=== PATIENT | male | born 1975 | race Caucasian/White ===

== ENCOUNTER 2016-06-06 23:01 | Observation (INO) | payer OTHER ==
[2016-06-06] MEDS ORDERED: ASPIRIN 81 MG CHEW PO STA (23:21)
[2016-06-06] MEDS ORDERED: ONDANSETRON 4 MG/2 ML VIAL IVP STA (23:21)
[2016-06-06] MEDS ORDERED: NITROGLYCERIN SL TABS 0.4 MG TAB SUBLINGUAL STA ×3 (23:21)
--- NOTE | 2016-06-06 23:24 | ED ---
General Adult HPI - General Chief complaint: Chest Pain Stated complaint: Chest Pain Time Seen by Provider: 06/06/16 23:18 Source: patient, family, RN notes reviewed Mode of arrival: ambulatory Limitations: no limitations - History of Present Illness Initial comments: Patient is a pleasant 40-year-old male presenting to emergency Department complaining of chest discomfort. Onset was close to 3 hours ago. Discomfort is somewhat severe. Discomfort feels like tightness with radiation across the chest. No associated dyspnea or diaphoresis. Patient does feel nauseated. Discomfort has been intermittent over the past week. Patient does have a history of similar symptoms previously associated with heart attack. - Related Data Home Medications Medication Instructions Recorded Confirmed Lisinopril [Zestril] 10 mg PO DAILY 12/23/14 02/18/16 Atorvastatin [Lipitor] 40 mg PO DAILY 02/18/16 02/18/16 Clopidogrel [Plavix] 75 mg PO DAILY 02/18/16 02/18/16 metFORMIN HCL [Glucophage] 500 mg PO DAILY 02/18/16 02/18/16 Previous Rx's Medication Instructions Recorded Aspirin EC [Ecotrin Low Dose] 81 mg PO DAILY #90 tablet.dr 12/25/14 Metoprolol Tartrate [Lopressor] 25 mg PO BID #120 tab 12/25/14 Isosorbide Mononitrate ER [Imdur] 30 mg PO DAILY #30 tab.er.24h 03/20/15 Cyclobenzaprine [Flexeril] 10 mg PO TID #21 tab 02/19/16 Allergies Allergy/AdvReac Type Severity Reaction Status Date / Time No Known Allergies Allergy Verified 06/06/16 23:08 Review of Systems ROS Statement: Those systems with pertinent positive or pertinent negative responses have been documented in the HPI. ROS Other: All systems not noted in ROS Statement are negative. Constitutional: Denies: fever Eyes: Denies: eye pain ENT: Denies: ear pain Respiratory: Denies: cough, dyspnea Cardiovascular: Reports: chest pain Endocrine: Denies: fatigue Gastrointestinal: Reports: nausea. Denies: abdominal pain, vomiting Genitourinary: Denies: dysuria Skin: Denies: rash Neurological: Denies: weakness Past Medical History Past Medical History: Coronary Artery Disease (CAD), Chest Pain / Angina, Diabetes Mellitus, Hyperlipidemia, Hypertension, Myocardial Infarction ([place]) Additional Past Medical History / Comment(s): Pt was recently admitted to [facility] on 12/24/14 with a STEMI and had 2 stents placed to his ramus intermedius and mid LAD. Other HX: Pt states he is "prediabetic" and is on metformin for this reason. Last Myocardial Infarction Date:: 12/24/14 History of Any Multi-Drug Resistant Organisms: None Reported Past Surgical History: Heart Catheterization, Heart Catheterization With Stent Additional Past Surgical History / Comment(s): 12/24/14 PCI with stent in ramus intermedius and mid LAD. THEN 01-01-15 CAME IN WITH VAGUE CHEST PAIN SYMPTOMS HAD REPEAT CATH BUT PT STATED NO MORE STENTS STATED HE HAD SPASMS. Past Anesthesia/Blood Transfusion Reactions: No Reported Reaction Additional Past Anesthesia/Blood Transfusion Reaction / Comment(s): Pt has never had general anesthesia or blood transfusion. Date of Last Stent Placement:: 12/24/14 Past Psychological History: No Psychological Hx Reported Additional Psychological History / Comment(s): Pt resides with his spouse and 4 children. 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 Smoking Status: Never smoker Past Alcohol Use History: None Reported Past Drug Use History: None Reported - Past Family History Father Family Medical History: No Reported History Additional Family Medical History / Comment(s): Father is 66yrs old and healthy Mother Family Medical History: No Reported History Additional Family Medical History / Comment(s): Mother is 57yrs old and healthy. General Exam Limitations: no limitations General appearance: alert, in no apparent distress Head exam: Present: atraumatic Eye exam: Present: normal appearance, PERRL ENT exam: Present: normal oropharynx Neck exam: Present: normal inspection Respiratory exam: Present: normal lung sounds bilaterally. Absent: chest wall tenderness Cardiovascular Exam: Present: regular rate, normal rhythm Expanded Peripheral pulses: 2+: Radial (R), Radial (L), Dorsalis Pedis (R), Dorsalis Pedis (L) GI/Abdominal exam: Present: soft. Absent: tenderness Extremities exam: Present: normal inspection. Absent: pedal edema, calf tenderness Neurological exam: Present: alert Psychiatric exam: Present: normal affect, normal mood Skin exam: Absent: rash Course Vital Signs 06/06/16 06/06/16 23:06 23:44 Temperature 98.0 F Pulse Rate 96 82 Respiratory 20 18 Rate Blood Pressure 130/80 121/80 O2 Sat by Pulse 98 97 Oximetry EKG Findings - EKG Comments: EKG Findings:: Normal sinus rhythm at 81. AR 176. QRS 104. QT 386. QTc 448. Normal axis. Normal QRS. Normal ST-T. Medical Decision Making - Medical Decision Making Patient reexamined and still complains of discomfort despite nitroglycerin. Nausea has improved. Patient and family updated on results and plan. Case was discussed in detail with Dr. Ramos, who will admit for Dr. House. Admission orders written. IV heparin started. Consultation for cardiology. - Lab Data Result diagrams: 06/06/16 23:00 06/06/16 23:00 Lab Results 06/06/16 06/06/16 06/06/16 Range/Units 23:00 23:00 23:00 WBC 13.9 H (3.8-10.6) k/uL RBC 5.30 (4.30-5.90) m/uL Hgb 15.5 (13.0-17.5) gm/dL Hct 46.6 (39.0-53.0) % MCV 88.0 (80.0-100.0) fL MCH 29.3 (25.0-35.0) pg MCHC 33.3 (31.0-37.0) g/dL RDW 12.8 (11.5-15.5) % Plt Count 260 (150-450) k/uL Neutrophils % 84 % Lymphocytes % 9 % Monocytes % 5 % Eosinophils % 1 % Basophils % 0 % Neutrophils # 11.7 H (1.3-7.7) k/uL Lymphocytes # 1.3 (1.0-4.8) k/uL Monocytes # 0.7 (0-1.0) k/uL Eosinophils # 0.2 (0-0.7) k/uL Basophils # 0.0 (0-0.2) k/uL PT (9.0-12.0) sec INR (<1.1) APTT (22.0-30.0) sec Sodium 141 (137-145) mmol/L Potassium 4.2 (3.5-5.1) mmol/L Chloride 101 (98-107) mmol/L Carbon Dioxide 27 (22-30) mmol/L Anion Gap 13 mmol/L BUN 23 H (9-20) mg/dL Creatinine 0.90 (0.66-1.25) mg/dL Est GFR (MDRD) Af Amer >60 (>60 ml/min/1.73 sqM) Est GFR (MDRD) Non-Af >60 (>60 ml/min/1.73 sqM) Glucose 117 H (74-99) mg/dL Calcium 9.6 (8.4-10.2) mg/dL Magnesium 1.9 (1.6-2.3) mg/dL Total Bilirubin 0.7 (0.2-1.3) mg/dL AST 37 (17-59) U/L ALT 80 H (21-72) U/L Alkaline Phosphatase 66 (38-126) U/L Total Creatine Kinase 428 H (55-170) U/L CK-MB (CK-2) 2.9 H* (0.0-2.4) ng/mL CK-MB (CK-2) Rel Index 0.7 Troponin I <0.012 (0.000-0.034) ng/mL Total Protein 7.7 (6.3-8.2) g/dL Albumin 4.7 (3.5-5.0) g/dL 06/06/16 Range/Units 23:00 WBC (3.8-10.6) k/uL RBC (4.30-5.90) m/uL Hgb (13.0-17.5) gm/dL Hct (39.0-53.0) % MCV (80.0-100.0) fL MCH (25.0-35.0) pg MCHC (31.0-37.0) g/dL RDW (11.5-15.5) % Plt Count (150-450) k/uL Neutrophils % % Lymphocytes % % Monocytes % % Eosinophils % % Basophils % % Neutrophils # (1.3-7.7) k/uL Lymphocytes # (1.0-4.8) k/uL Monocytes # (0-1.0) k/uL Eosinophils # (0-0.7) k/uL Basophils # (0-0.2) k/uL PT 11.1 (9.0-12.0) sec INR 1.1 (<1.1) APTT 25.8 (22.0-30.0) sec Sodium (137-145) mmol/L Potassium (3.5-5.1) mmol/L Chloride (98-107) mmol/L Carbon Dioxide (22-30) mmol/L Anion Gap mmol/L BUN (9-20) mg/dL Creatinine (0.66-1.25) mg/dL Est GFR (MDRD) Af Amer (>60 ml/min/1.73 sqM) Est GFR (MDRD) Non-Af (>60 ml/min/1.73 sqM) Glucose (74-99) mg/dL Calcium (8.4-10.2) mg/dL Magnesium (1.6-2.3) mg/dL Total Bilirubin (0.2-1.3) mg/dL AST (17-59) U/L ALT (21-72) U/L Alkaline Phosphatase (38-126) U/L Total Creatine Kinase (55-170) U/L CK-MB (CK-2) (0.0-2.4) ng/mL CK-MB (CK-2) Rel Index Troponin I (0.000-0.034) ng/mL Total Protein (6.3-8.2) g/dL Albumin (3.5-5.0) g/dL - Radiology Data Radiology results: image reviewed (X-ray shows no acute process) Critical Care Time Critical Care Time: Yes Total Critical Care Time: 34 Disposition Clinical Impression: Unstable angina pectoris Disposition: ADMITTED IP TO THIS HOSP
[2016-06-06 23:40] LABS: Basophils % (A) 0 %; CH 30.6; CHCM 34.9; Eosinophils # (A) 0.2 k/uL (0-0.7); Eosinophils % (A) 1 %; HCT 46.6 % (39.0-53.0); HDW 2.55; HGB 15.5 gm/dL (13.0-17.5); Luc # (Auto) 0.12; Luc % (Auto) 1; Lymphocytes # (A) 1.3 k/uL (1.0-4.8); Lymphocytes % (A) 9 %; MCH 29.3 pg (25.0-35.0); MCHC 33.3 g/dL (31.0-37.0); Mean Platelet Volume 6.4; Monocytes # (A) 0.7 k/uL (0-1.0); Monocytes % (A) 5 %; Neutrophils # (A) 11.7 k/uL (1.3-7.7); Neutrophils % (A) 84 %; RDW 12.8 % (11.5-15.5); WBC 13.9 k/uL (3.8-10.6); WBC (Perox) 14.58
[2016-06-06 23:49] LABS: INR 1.1 (<1.1); Partial Thromboplastin Time 25.8 sec (22.0-30.0); Prothrombin Time 11.1 sec (9.0-12.0)
[2016-06-06 23:51] LABS: ALT 80 U/L (21-72); AST 37 U/L (17-59); Alkaline Phosphatase 66 U/L (38-126); Anion Gap 13 mmol/L; Blood Urea Nitrogen 23 mg/dL (9-20); Calcium 9.6 mg/dL (8.4-10.2); Carbon Dioxide 27 mmol/L (22-30); Chloride 101 mmol/L (98-107); Glucose 117 mg/dL (74-99); Magnesium 1.9 mg/dL (1.6-2.3); Non-African American GFR(MDRD) >60 (>60 ml/min/1.73 sqM); Potassium 4.2 mmol/L (3.5-5.1); Sodium 141 mmol/L (137-145); Total Bilirubin 0.7 mg/dL (0.2-1.3); Total Protein 7.7 g/dL (6.3-8.2)
[2016-06-07 00:01] LABS: Creatine Kinase 428 U/L (55-170)
[2016-06-07 00:14] LABS: Troponin I <0.012 ng/mL (0.000-0.034)
[2016-06-07 00:17] LABS: Creatine Kinase MB 2.9 ng/mL (0.0-2.4)
[2016-06-07] MEDS ORDERED: MORPHINE SULFATE 4 MG/ML SYRINGE IV STA (00:26)
[2016-06-07] MEDS ORDERED: HEPARIN SODIUM,PORCINE 5,000 UNIT/ML 1 ML VIAL IV ONE (00:32)
[2016-06-07] MEDS ORDERED: NITROGLYCERIN SL TABS 0.4 MG TAB SUBLINGUAL PRN ×3 (00:32→11:34)
[2016-06-07] MEDS ORDERED: HEPARIN SODIUM,PORCINE 5,000 UNIT/ML 1 ML VIAL IV PRN (00:32)
[2016-06-07] MEDS ORDERED: SODIUM CHLORIDE 0.9% 1,000 ML IV STA (00:45)
[2016-06-07] MEDS ORDERED: HEPARIN SODIUM,PORCINE/D5W PMX 25,000 UNIT in DEXTROSE/WATER 1 500ML.BAG IV SCH (00:45)
[2016-06-07] MEDS ORDERED: METOCLOPRAMIDE 5 MG/ML 2 ML VIAL IVP STA (00:54)
--- NOTE | 2016-06-07 01:09 | XR ---
EXAMINATION TYPE: XR chest 1V portable DATE OF EXAM: 06/06/2016 11:59 PM COMPARISON: 02/18/2016 HISTORY: Chest pain. TECHNIQUE: Single frontal view of the chest is obtained. Portable radiograph upright 06/06/2016, 11:49 PM hours FINDINGS: There is suggestion of mild pulmonary vascular congestion. There is no focal air space opacity, pleural effusion, or pneumothorax seen. The cardiac silhouette size is within normal limits. The osseous structures are intact. IMPRESSION: 1. No focal lung consolidation. 2. Mild pulmonary vascular congestion.
[2016-06-07 01:36] VITALS: BMI 30.7
[2016-06-07 05:57] LABS: Mean Platelet Volume 6.8
[2016-06-07] MEDS ORDERED: NITROGLYCERIN OINT 1 INCH/GM PACKET TOPICAL SCH (06:00)
[2016-06-07 06:19] LABS: Creatine Kinase 292 U/L (55-170)
[2016-06-07 06:32] LABS: Creatine Kinase MB 1.8 ng/mL (0.0-2.4); Troponin I <0.012 ng/mL (0.000-0.034)
[2016-06-07] MEDS ORDERED: ALPRAZolam 0.25 MG TAB PO PRN (07:58)
[2016-06-07] MEDS ORDERED: ALPRAZolam 0.5 MG TAB PO PRN (07:58)
[2016-06-07] MEDS ORDERED: SODIUM CHLORIDE 0.9% 1,000 ML in EMPTY BAG 1 BAG IV ONE (07:58)
[2016-06-07] MEDS ORDERED: ATORVASTATIN 80 MG TAB PO STA (08:01)
[2016-06-07] MEDS ORDERED: ASPIRIN 325 MG TAB PO STA (08:01)
[2016-06-07] MEDS: METOPROLOL TARTRATE 25 MG TAB PO SCH ×2 (08:40→22:07)
[2016-06-07] MEDS: LISINOPRIL 10 MG TAB PO SCH (08:41)
[2016-06-07 09:03] LABS: Basophils # (A) 0.1 k/uL (0-0.2); Basophils % (A) 1 %; CH 30.6; CHCM 33.8; Eosinophils # (A) 0.1 k/uL (0-0.7); Eosinophils % (A) 1 %; HCT 46.3 % (39.0-53.0); HGB 15.1 gm/dL (13.0-17.5); Luc # (Auto) 0.13; Luc % (Auto) 1; Lymphocytes # (A) 0.7 k/uL (1.0-4.8); Lymphocytes % (A) 5 %; MCH 29.7 pg (25.0-35.0); MCHC 32.6 g/dL (31.0-37.0); MCV 91.1 fL (80.0-100.0); Mean Platelet Volume 7.7; Monocytes # (A) 0.5 k/uL (0-1.0); Monocytes % (A) 4 %; Neutrophils # (A) 10.9 k/uL (1.3-7.7); Neutrophils % (A) 88 %; RBC 5.09 m/uL (4.30-5.90); RDW 12.8 % (11.5-15.5); WBC 12.3 k/uL (3.8-10.6); WBC (Perox) 12.59
[2016-06-07 09:11] LABS: ALT 73 U/L (21-72); AST 30 U/L (17-59); Alkaline Phosphatase 60 U/L (38-126); Anion Gap 12 mmol/L; Blood Urea Nitrogen 23 mg/dL (9-20); Carbon Dioxide 28 mmol/L (22-30); Chloride 100 mmol/L (98-107); Glucose 141 mg/dL (74-99); Non-African American GFR(MDRD) >60 (>60 ml/min/1.73 sqM); Potassium 4.6 mmol/L (3.5-5.1); Sodium 140 mmol/L (137-145); Total Protein 6.9 g/dL (6.3-8.2)
[2016-06-07] MEDS: CLOPIDOGREL 75 MG TAB PO SCH (09:20)
[2016-06-07] MEDS ORDERED: SODIUM CHLORIDE 0.9% (PF) 10 ML VIAL ONE (09:51)
[2016-06-07] MEDS ORDERED: LIDOCAINE 2% INJ 20 MG/ML (20 ML MDV) ONE (09:51)
[2016-06-07] MEDS ORDERED: fentaNYL (PF) 50 MCG/ML 2 ML AMP ONE (09:51)
[2016-06-07] MEDS ORDERED: VERAPAMIL 2.5 MG/ML 2 ML AMP ONE (09:51)
[2016-06-07] MEDS ORDERED: diphenhydrAMINE 50 MG/ML 1 ML VIAL ONE (09:52)
[2016-06-07] MEDS ORDERED: HEPARIN SODIUM 1,000 UNIT/ML VIAL ONE (09:52)
[2016-06-07] MEDS ORDERED: SODIUM CHLORIDE 0.9% 500 ML IV ONE (10:11)
[2016-06-07] MEDS ORDERED: diphenhydrAMINE 50 MG/ML 1 ML VIAL IVP ONE (10:35)
[2016-06-07] MEDS ORDERED: fentaNYL (PF) 50 MCG/ML 2 ML AMP IV ONE (10:36)
[2016-06-07] MEDS ORDERED: LIDOCAINE 2% INJ 20 MG/ML SQ ONE (10:40)
--- NOTE | 2016-06-07 10:40 | P.HPIM ---
History of Present Illness H&P Date: 06/07/16 Chief Complaint: Chest pain This is a 40-year-old male with a known past medical history of myocardial infarction, coronary artery disease with cardiac stents, diabetes mellitus type 2, hyperlipidemia and hypertension. Patient presented to the emergency room with complaints of chest pain. Patient reports that he has had intermittent chest pain for the past week. However yesterday evening the chest pain became worse. He's having a lot of chest pressure in the center of his chest pain did radiate down the left arm. He also felt sick to his stomach and was short of breath. He took 3 nitros with no improvement. Patient's was omitted to the observation started on IV heparin and cardiology was consulted. Troponins are negative 2 sets EKG shows a normal sinus rhythm. Chest x-ray showed mild peripheral vascular congestion. BNP has been ordered. Patient is scheduled for heart catheterization today. Last stress test was February 2016. Patient denies any cough, fever or chills or sweats. Denies any vomiting. Denies any bowel movement changes or urinary symptoms. Review of Systems Please refer to HPI otherwise unremarkable Past Medical History Past Medical History: Coronary Artery Disease (CAD), Chest Pain / Angina, Diabetes Mellitus, Hyperlipidemia, Hypertension, Myocardial Infarction ([place]) Additional Past Medical History / Comment(s): Pt was recently admitted to [facility] on 12/24/14 with a STEMI and had 2 stents placed to his ramus intermedius and mid LAD. Other HX: Pt states he is "prediabetic" and is on metformin for this reason. Last Myocardial Infarction Date:: 12/24/14 History of Any Multi-Drug Resistant Organisms: None Reported Past Surgical History: Heart Catheterization, Heart Catheterization With Stent Additional Past Surgical History / Comment(s): 12/24/14 PCI with stent in ramus intermedius and mid LAD. THEN 01-01-15 CAME IN WITH VAGUE CHEST PAIN SYMPTOMS HAD REPEAT CATH BUT PT STATED NO MORE STENTS STATED HE HAD SPASMS. Past Anesthesia/Blood Transfusion Reactions: No Reported Reaction Additional Past Anesthesia/Blood Transfusion Reaction / Comment(s): Pt has never had general anesthesia or blood transfusion. Date of Last Stent Placement:: 12/24/14 Past Psychological History: No Psychological Hx Reported Additional Psychological History / Comment(s): Pt resides with his spouse and 4 children. 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 Smoking Status: Never smoker Past Alcohol Use History: None Reported Past Drug Use History: None Reported - Past Family History Father Family Medical History: No Reported History Additional Family Medical History / Comment(s): Father is 66yrs old and healthy Mother Family Medical History: No Reported History Additional Family Medical History / Comment(s): Mother is 57yrs old and healthy. Medications and Allergies Home Medications Medication Instructions Recorded Confirmed Type Lisinopril [Zestril] 10 mg PO DAILY 12/23/14 06/07/16 History Atorvastatin [Lipitor] 40 mg PO DAILY 02/18/16 06/07/16 History Clopidogrel [Plavix] 75 mg PO DAILY 02/18/16 06/07/16 History metFORMIN HCL [Glucophage] 500 mg PO DAILY 02/18/16 06/07/16 History Allergies Allergy/AdvReac Type Severity Reaction Status Date / Time No Known Allergies Allergy Verified 06/07/16 08:13 Physical Exam Vitals: Vital Signs Temp Pulse Pulse Resp BP BP Pulse Ox 06/07/16 08:00 98 F 110 H 18 121/60 93 L 06/07/16 04:21 98.6 F 92 16 128/63 93 L 06/07/16 01:30 96 16 06/07/16 01:16 98.3 F 89 16 158/82 98 06/07/16 00:46 98.0 F 86 18 118/73 95 Intake and Output 06/06/16 06/07/16 06/07/16 22:59 06:59 14:59 Other: Voiding Method Toilet Weight 99.79 kg Head normocephalic Neck supple Lungs clear to auscultation bilaterally no wheezing or crackles Heart regular rate and rhythm S1-S2, no rub or gallop Abdomen is soft epigastric tenderness nondistended positive bowel sounds no hepatosplenomegaly Extremities no edema Neuro alert and orientated to 3 Results CBC & Chem 7: 06/07/16 05:44 06/07/16 05:44 Labs: Abnormal Lab Results - Last 24 Hours (Table) 06/07/16 06/07/16 06/07/16 Range/Units 05:44 05:44 05:44 WBC 12.3 H (3.8-10.6) k/uL Neutrophils # 10.9 H (1.3-7.7) k/uL Lymphocytes # 0.7 L (1.0-4.8) k/uL APTT 31.1 H (22.0-30.0) sec BUN (9-20) mg/dL Glucose (74-99) mg/dL ALT (21-72) U/L Total Creatine Kinase 292 H (55-170) U/L 06/07/16 Range/Units 05:44 WBC (3.8-10.6) k/uL Neutrophils # (1.3-7.7) k/uL Lymphocytes # (1.0-4.8) k/uL APTT (22.0-30.0) sec BUN 23 H (9-20) mg/dL Glucose 141 H (74-99) mg/dL ALT 73 H (21-72) U/L Total Creatine Kinase (55-170) U/L Thrombosis Risk Factor Assmnt - Choose All That Apply Each Factor Represents 1 point: Age 41-60 years Thrombosis Risk Factor Assessment Total Risk Factor Score: 1 Thrombosis Risk Factor Assessment Level: Low Risk Assessment and Plan Plan: 1. Chest pain: Cardiac workup in progress. Patient does have significant recurrence risk factors with previous myocardial infarction, coronary artery disease with cardiac stents, diabetes, hyperlipidemia and hypertension. Patient is on IV heparin and scheduled for heart catheterization this afternoon. Troponins are negative 2 sets. EKG showing a normal sinus rhythm. Chest x-ray showing mild pulmonary vascular congestion. Check BNP 2. Leukocytosis: White count trending down. We'll monitor. Patient denies any cough, urinary symptoms, or any bowel movement changes 3. History of myocardial infarction with coronary disease and cardiac stents 4. Diabetes mellitus type 2: Hold metformin while during hospital stay. In place patient on sliding scale coverage 5. Hyperlipidemia continue statin 6. Essential hypertension GI prophylaxis Protonix and DVT prophylaxis IV heparin Time with Patient: Greater than 30 (Greater than 50% of the total time spent in counseling and coordination of care.I performed an examination of the patient and discussed their management with the physician Flue Blower. I have reviewed the Physician Flue Blower's notes and agree with the documented findings and plan of care)
[2016-06-07] MEDS ORDERED: VERAPAMIL SYRINGE (5 MG/10 ML) IVP ONE (10:46)
[2016-06-07 10:48] LABS: Amylase 66 U/L (30-110)
[2016-06-07] MEDS ORDERED: MIDAZOLAM 2 MG/2 ML VIAL ONE (10:50)
[2016-06-07] MEDS ORDERED: MIDAZOLAM 2 MG/2 ML VIAL IVP ONE (10:51)
[2016-06-07] MEDS ORDERED: NITROGLYCERIN 1000MCG/10ML SYRINGE INTRACORON ONE (10:56)
[2016-06-07] MEDS ORDERED: BIVALIRUDIN BOLUS 250 MG/50 ML IV ONE (11:01)
[2016-06-07] MEDS ORDERED: BIVALIRUDIN 250 MG in SODIUM CHLORIDE 0.9% 50 ML IV ONE (11:01)
[2016-06-07] MEDS ORDERED: IOHEXOL 350 MG/ML 100 ML BOTTLE INJ ONE (11:22)
[2016-06-07] MEDS ORDERED: RX INFO: IV CONTRAST WAS GIVEN 1 EACH MISC MISCELLANE PRN (11:34)
[2016-06-07] MEDS ORDERED: ZOLPIDEM 5 MG TAB PO PRN (11:34)
[2016-06-07] MEDS ORDERED: ATROPINE SULFATE 0.1 MG/ML 10ML SYRINGE IV PRN (11:34)
[2016-06-07] MEDS ORDERED: MAG HYDROX/AL HYDROX/SIMETH 30 ML CUP PO PRN (11:34)
[2016-06-07 11:41] LABS: Hemoglobin A1C 6.7 % (4.2-6.1)
[2016-06-07] MEDS ORDERED: SODIUM CHLORIDE 0.9% 1,000 ML IV SCH (11:45)
[2016-06-07] MEDS: INSULIN LISPRO (humaLOG) 300 UNIT/3 ML VIAL SQ SCH ×3 (11:51→22:06)
[2016-06-07 11:58] LABS: Glucose,Whole Blood 100 mg/dL (75-99)
--- NOTE | 2016-06-07 12:08 | ECHOF ---
Referral Reason:ua MEASUREMENTS -------- HEIGHT: 180.3 cm WEIGHT: 99.8 kg BP: 128/63 RVIDd: 3.0 cm (< 3.3) IVSd: 1.1 cm (0.6 - 1.1) LVIDd: 4.3 cm (3.9 - 5.3) LVPWd: 1.2 cm (0.6 - 1.1) IVSs: 1.9 cm LVIDs: 2.6 cm LVPWs: 2.1 cm LA Diam: 3.8 cm (2.7 - 3.8) LAESV Index (A-L): 12.53 ml/m Ao Diam: 3.5 cm (2.0 - 3.7) AV Cusp: 2.3 cm (1.5 - 2.6) LA Diam: 2.7 cm (2.7 - 3.8) MV EXCURSION: 13.883 mm (> 18.000) MV EF SLOPE: 65 mm/s (70 - 150) EPSS: 0.7 cm MV E Miguel: 0.60 m/s MV DecT: 237 ms MV A Miguel: 0.75 m/s MV E/A Ratio: 0.79 RAP: 5.00 mmHg RVSP: 18.89 mmHg FINDINGS -------- Sinus rhythm. This was a technically good study. There is borderline concentric left ventricular hypertrophy. Overall left ventricular systolic function is low-normal with, an EF between 50 - 55 %. The right ventricle is normal in size. Normal LA size by volume 22+/-6 ml/m2. The right atrium is normal in size. Aortic valve is trileaflet and is mildly thickened. Mild mitral annular calcification present. There is trace mitral regurgitation. Mild tricuspid regurgitation present. Right ventricular systolic pressure is normal at < 35 mmHg. Pulmonic valve appears structurally normal. Normal inferior vena cava with normal inspiratory collapse consistent with estimated right atrial pressure of 5 mmHg. Echo free space may represent effusion or a pericardial fat pad. CONCLUSIONS -------- 1. Sinus rhythm. 2. There is trace mitral regurgitation. 3. Mild tricuspid regurgitation present. 4. Right ventricular systolic pressure is normal at < 35 mmHg. 5. Pulmonic valve appears structurally normal. 6. Echo free space may represent effusion or a pericardial fat pad. 7. This was a technically good study. 8. There is borderline concentric left ventricular hypertrophy. 9. Overall left ventricular systolic function is low-normal with, an EF between 50 - 55 %. 10. The right ventricle is normal in size. 11. Normal LA size by volume 22+/-6 ml/m2. 12. The right atrium is normal in size. 13. Aortic valve is trileaflet and is mildly thickened. 14. Mild mitral annular calcification present. CLINICAL DOCUMENT IMPROVEMENT EDUCATOR: Abdullahi Rosales RDCS
--- NOTE | 2016-06-07 12:43 | CONS ---
DATE OF CONSULTATION: Mr. Cornejo is a 40-year-old male with known history of coronary artery disease, status post stenting of the ramus intermedius mid LAD in 2014, who underwent repeat cardiac catheterization in December 2014. At that time was found to have a vasospastic abnormality. He has been doing well. Was admitted to the hospital in February of last year with chest pain that showed no evidence of myocardial infarction and at that time his stress test was unremarkable. He presented with on and off pain for one week, yesterday the pain was quite severe, radiating to the left arm associated with nausea and vomiting, dyspnea. He has continued to have chest discomfort. He has some palpitation. No syncope. No PND, orthopnea. He has been reasonably active physically otherwise. His coronary risk factors are positive for diabetes, hypertension and hyperlipidemia. He is nonsmoker. His medications include Lipitor 5 mg daily, Zestril 10 mg daily, metoprolol tartrate 25 mg twice a day, Plavix 75 mg daily, aspirin once a day, isosorbide mononitrate 30 mg daily in addition to metformin. REVIEW OF SYSTEMS: RESPIRATORY SYSTEM: He has no recent wheezing. No cough. No history of obstructive lung disease. GI SYSTEM: No recent GI bleeding. No peptic ulcer disease. He had nausea and vomiting yesterday. SYSTEM: No dysuria or hematuria. NERVOUS SYSTEM: No stroke or seizure. PHYSICAL EXAMINATION: A 40-year-old male, alert, oriented, in mild discomfort. Blood pressure 128/60 with a heart rate in the 80s to 90s. LUNGS: Clear. HEART: Regular rate and rhythm. S1, S2, no S3, no rub with a soft systolic murmur. ABDOMEN: Soft, nontender, positive bowel sounds. No organomegaly. EXTREMITIES: No edema. Intact distal pulses. Lab data revealed cholesterol 103, LDL of 48, troponin less 0.012 for 2 samples. BUN and creatinine 23 and 0.9. Hemoglobin 15.5, white blood cells 13.9. Chest x-ray revealed no evidence of infiltrate. EKG revealed a sinus mechanism, normal axis and intervals, no acute changes. IMPRESSION: 1. Chest discomfort of unclear etiology in a patient with known history of coronary artery disease, discomfort is persistent. There is no evidence of acute myocardial infarction. 2. Status post stenting. 3. Hypertension. 4. Hyperlipidemia. 5. Diabetes mellitus. RECOMMENDATION: In view of the persistent symptoms and his prior history, I would recommend to proceed with coronary angiography to assess his status and guide his treatment. The rationale behind the procedure as well as risks and complications were discussed with the patient who is in full understanding and agreement. Depending on the results of the testing, further recommendation will be made. Thank you for the consult. Will follow with you.
[2016-06-07 17:15] LABS: Glucose,Whole Blood 98 mg/dL (75-99)
[2016-06-07] MEDS: PANTOPRAZOLE 40 MG TABLET PO SCH (17:21)
[2016-06-07 21:10] LABS: Glucose,Whole Blood 123 mg/dL (75-99)
[2016-06-08 06:18] LABS: Glucose,Whole Blood 105 mg/dL (75-99)
[2016-06-08] MEDS: INSULIN LISPRO (humaLOG) 300 UNIT/3 ML VIAL SQ SCH ×2 (06:32→11:43)
[2016-06-08] MEDS: PANTOPRAZOLE 40 MG TABLET PO SCH (06:33)
[2016-06-08 06:49] LABS: Anion Gap 10 mmol/L; Blood Urea Nitrogen 15 mg/dL (9-20); Calcium 8.8 mg/dL (8.4-10.2); Carbon Dioxide 27 mmol/L (22-30); Chloride 101 mmol/L (98-107); Glucose 109 mg/dL (74-99); Non-African American GFR(MDRD) >60 (>60 ml/min/1.73 sqM); Potassium 4.2 mmol/L (3.5-5.1); Sodium 138 mmol/L (137-145)
--- NOTE | 2016-06-08 07:07 | PTCA ---
DATE OF SERVICE: Mr. Cornejo is a 40-year-old male with a known history of coronary artery disease, who underwent stenting of his LAD in 2014, presented with symptoms of chest discomfort, underwent cardiac catheterization, was found to have significant stenosis proximal to the left anterior descending stented segment. In view of that, recommendation made regarding angioplasty and stenting. The procedure as well as risks and complications were discussed with the patient who is in full understanding and agreement. PROCEDURE: A 6 Dominican 3-1/2 Bend left Victorina guiding catheter the system after cannulating the left main, a 0.014 balanced medium weight was advanced across the lesion, positioned distally. Then a 2.75 x 15 mm Xience Alpine stent was deployed, postdilated at 14 atmospheres. Following that, the balloon was advanced and one inflation of the overlap segment was performed at 14 atmospheres. Following that the balloon and the guidewire were withdrawn into the guiding catheter. Images were obtained and repeated. Those images reveal stable successful stenting. At that point, the guiding catheter, the balloon and the guidewire were removed. The catheter was removed and a 5 Dominican tight pigtail catheter was introduced into the left ventricle and left ventriculogram was performed. Following that, catheter and sheaths were removed. Hemostasis was obtained with deployment of a TR band. There were no immediate complications. Patient is returned to his room in stable condition. Of note, the patient received Angiomax per protocol. He had EKG changes with the inflation that resolved at the end of the procedure. There were no immediate complications. RESULT: Successful stenting of the mid left anterior descending with reduction in stenosis from 80% to 0%. RECOMMENDATIONS: Patient will be continued on aspirin, Plavix, beta marlen, and simvastatin. The importance of dual antiplatelet treatment were discussed with the patient and his family who are in full understanding and agreement.
--- NOTE | 2016-06-08 07:09 | LTR ---
June 07, 2016 RE: ChantalDiego Dear Dr. House: I had the pleasure of performing cardiac catheterization and coronary angioplasty and stenting on Mr. Cornejo at [facility] on June 07, 2016 and a full copy of procedure note will be forwarded to you. In brief, he underwent successful stenting of his mid LAD using a drug-eluting stent. I am hopeful that this procedure will stabilize his status. Thank you again for allowing me to participate in his care. Please feel free to call for any questions. Sincerely, TRINI JASON MD
--- NOTE | 2016-06-08 07:12 | CC ---
DATE OF SERVICE: Mr. Cornejo is a 40-year-old male with known history of coronary artery disease, who presented with symptoms of chest discomfort without any enzymatic changes but because of his persistent symptoms and a prior history, recommendation made regarding cardiac catheterization. The procedure as well as risks and complications were discussed with the patient who is in full understanding and agreement. PROCEDURE: Patient was brought to the [employer] Operator in a fasting semi-sedated state after using fentanyl and Benadryl. He was draped and prepped in conventional fashion. Using Xylocaine anesthesia and Seldinger technique, a 6 Tristanian sheath was introduced in the right radial artery. Selective right and left coronary angiography performed using 5 Tristanian 3-1/2 Bend, right Victorina catheters. Multiple views of the right coronary artery including hemiaxial views were obtained. Following that, angioplasty and stenting of the right coronary artery was performed. Following that, a 5 Tristanian tight Pigtail catheter was introduced into the left ventricle and a 30 degree MONTES DE OCA view of the left ventricle was obtained. Following that, catheter and sheaths were removed. Hemostasis was obtained with deployment of a TR band. There were no immediate complications. Patient was returned to his room in stable condition. Of note, the patient received intra-arterial verapamil. FINDINGS: LEFT MAIN: This is a large-size vessel trifurcating into the left circumflex, left anterior descending artery and ramus intermedius, left main coronary artery is without any significant obstructive coronary artery disease. LEFT ANTERIOR DESCENDING ARTERY: This is a large-size vessel reaching toward the apex with a wraparound apex segment, giving rise to 2 diagonal branch after the take off of the first diagonal branch there is an 80% eccentric lesion at the take off of the second diagonal branch and distal to it. The stented segment is patent with no significant obstructive disease. RAMUS INTERMEDIUS: This is a large-size vessel showing the apical lateral wall. The ramus intermedius stented segment is patent without any evidence of restenosis. LEFT CIRCUMFLEX: This is a codominant vessel, giving rise distally to a PDA and a PLV. The left circumflex gives rise to a small obtuse marginal branch. It has no evidence of high-grade stenosis. RIGHT CORONARY ARTERY: This is a large codominant vessel, giving rise to a right PDA. The right coronary artery as well as its branches have no evidence of obstructive coronary artery disease. LEFT VENTRICULOGRAM: Left ventriculogram was performed in 30 degree MONTES DE OCA view and revealed a normal left ventricular size and systolic function. Ejection fraction is 60%. There was no significant mitral regurgitation. HEMODYNAMICS: There was no gradient across the aortic valve. The left ventricle end-diastolic pressure was 14 to 16 mmHg. CONCLUSION: 1. Significant stenosis involving the mid left anterior descending artery proximal to the stented segment. 2. Mild obstructive disease in the left circumflex with no evidence of restenosis in the ramus intermedius. 3. Normal left ventricular size and systolic function. RECOMMENDATION: In view of finding anatomy, I recommend proceeding with coronary angioplasty and stenting of left anterior descending artery. The procedure as well as risks and complications were discussed with the patient, who is in full understanding and agreement.
[2016-06-08] MEDS: CLOPIDOGREL 75 MG TAB PO SCH (08:48)
[2016-06-08] MEDS: LISINOPRIL 10 MG TAB PO SCH (08:48)
[2016-06-08] MEDS: METOPROLOL TARTRATE 25 MG TAB PO SCH (08:48)
[2016-06-08] MEDS ORDERED: ASPIRIN 81 MG CHEW PO SCH (09:00)
[2016-06-08] MEDS ORDERED: ISOSORBIDE MONONITRATE ER 30 MG TAB.ER.24H PO SCH (09:00)
[2016-06-08] MEDS ORDERED: ASPIRIN 325 MG TAB PO SCH (09:00)
[2016-06-08] MEDS ORDERED: ATORVASTATIN 40 MG TAB PO SCH (09:00)
[2016-06-08 09:02] VITALS: RESP 16
[2016-06-08 11:50] VITALS: BP 117/75; PULSE 66; TEMP 97.8
--- NOTE | 2016-06-08 11:57 | P.DS ---
Providers Date of admission: 06/07/16 00:32 Expected date of discharge: 06/08/16 Attending physician: Ravi Sharma Consults: 06/07/16 11:34 Consult Physician Routine Consulting Provider: [facility] Consult Reason/Comments: Post Interventional patient Do you want consulting provider notified?: Already Contacted Primary care physician: [facility] Course: Diagnosis on discharge #1 unstable angina #2 hypertension #3 hyperlipidemia #4 czp-[id number]-gnzzyymzl diabetes mellitus Hospital course Patient is a 40-year-old male with known history of coronary artery disease with history of angioplasty and stent placement in the past all presented to [facility] was a chief complaint of chest pain. Patient did not have any evidence of acute myocardial infarction. Due to his history he was evaluated by cardiology and decision was made to proceed with cardiac catheterization which was done on 06/07/2016 Patient had evidence of mid left anterior descending artery stenosis of 80% proximal of the previous stent, patient underwent angioplasty and stent placement yesterday with good results. He was chest pain free post procedure, he was discharged home on 06/08/2016 During this admission patient had mild elevation in white blood count without any clinical evidence of infection he did not receive any antibiotic. He will be followed in our office was in 1 week for further evaluation. Patient will also follow-up with Dr. Hickey in 1-2 weeks Plan - Discharge Summary Discharge Medication List Lisinopril [Zestril] 10 mg PO DAILY 12/23/14 [History] Aspirin EC [Ecotrin Low Dose] 81 mg PO DAILY #90 tablet. 12/25/14 [Rx] Metoprolol Tartrate [Lopressor] 25 mg PO BID #120 tab 12/25/14 [Rx] Isosorbide Mononitrate ER [Imdur] 30 mg PO DAILY #30 tab.er.24h 03/20/15 [Rx] Atorvastatin [Lipitor] 40 mg PO DAILY 02/18/16 [History] Clopidogrel [Plavix] 75 mg PO DAILY 02/18/16 [History] metFORMIN HCL [Glucophage] 500 mg PO DAILY 02/18/16 [History] Isosorbide Mononitrate ER [Imdur] 30 mg PO DAILY tab.er.24h 06/08/16 [Rx] Nitroglycerin Sl Tabs [Nitrostat] 0.4 mg SUBLINGUAL Q5M PRN #0 tab 06/08/16 [Rx] Follow up Appointment(s)/Referral(s): Alexis Hickey MD [STAFF PHYSICIAN] - 2 Weeks Crys House MD [Primary Care Provider] - 1-2 days Patient Instructions/Handouts: After Heart Catheterization - Credit Review Manager
[2016-06-08 12:00] LABS: Glucose,Whole Blood 130 mg/dL (75-99)
--- NOTE | 2016-06-08 12:14 | PN ---
Mr. Cornejo is a 40-year-old male with known history of coronary artery disease, who presented with symptoms of chest discomfort, underwent cardiac catheterization, was found to have significant obstructive disease involving the LAD. Underwent stenting of that vessel. He is doing well this morning, ambulating without difficulty. Denying any chest pain. No dizziness. No palpitation. He continues to be on: 1. Aspirin once a day. 2. Lipitor 40 mg daily. 3. Plavix 75 mg daily. 4. Isosorbide mononitrate 30 mg daily. 5. Lisinopril 10 mg daily. 6. Metoprolol titrate 25 mg twice a day. PHYSICAL EXAMINATION: Blood pressure 111/70 with a heart rate in the 70s. LUNGS: Clear. HEART: Regular rate and rhythm. S1, S2, no S3, no rub. ABDOMEN: Soft, nontender. EXTREMITIES: No edema. Right radial pulse intact. EKG revealed no acute changes. Lab data revealed BUN and creatinine 15 and 1.0, potassium 4.2. IMPRESSION: 1. Status post stenting of the left anterior descending coronary artery, stable. 2. History of coronary artery disease. 3. Hypertension. 4. Hyperlipidemia. RECOMMENDATIONS: Patient should be able to be discharged home today and followed as an outpatient.
== END 2016-06-08 13:12 | disposition home or self-care (01) ==
LOC: EC 23:01 → 3OBS 06-07 00:32 → 6SEL 06-07 11:11
PROVIDERS: ADMIT Internal Medicine; ATTEND Internal Medicine
DX: I25.110 Atherosclerotic heart disease of native coronary artery with unstable angina pectoris (principal); I10 Essential (primary) hypertension; E78.5 Hyperlipidemia, unspecified; E11.9 Type 2 diabetes mellitus without complications; R11.0 Nausea; Z79.84 Long term (current) use of oral hypoglycemic drugs; Z79.02 Long term (current) use of antithrombotics/antiplatelets; Z79.899 Other long term (current) drug therapy; Z79.82 Long term (current) use of aspirin; I25.2 Old myocardial infarction; D72.829 Elevated white blood cell count, unspecified
CPT/HCPCS: 36415; 93005; 93306; 93458; 83880; 80053 ×2; 80048; 82150; 83036; 82550 ×2; 82553 ×2; 83690; 83735; 84484 ×2; 85025 ×2; 85049; 85610; 85730 ×2; 71010; 99291; 96375 ×3; 96376; G0378 ×3; C9600; C1769 ×3; C1887; C1894; C1874; J2001; J2250; J2270; J1200; J1644 ×2; J2765; Q9967; J2405; J3010; J0583

== ENCOUNTER → 2016-12-16 | Outpatient (CLI) | payer OTHER ==
--- NOTE | 2016-12-16 15:59 | XR ---
EXAM TYPE: LUMBAR SPINE X RAY SERIES COMPARISON: NONE HISTORY: Low back pain TECHNIQUE: 4 views are submitted. FINDINGS: Alignment is anatomic. The pedicles are intact. The transverse processes are intact. There is no s pondylolysis or spondylolisthesis. Curvature of the spine noted. L4-5 and L5-S1 facet arthropathy. D egenerative disc disease L3-S1. IMPRESSION: 1. Multilevel degenerative disc disease. There is facet arthropathy involving the lower lumbar spine. Correlate with MRI..
== END ==
LOC: RADXRMAIN 15:34
PROVIDERS: ATTEND Internal Medicine
DX: M51.36 Other intervertebral disc degeneration, lumbar region (principal); M46.86 Other specified inflammatory spondylopathies, lumbar region
CPT/HCPCS: 72110

== ENCOUNTER → 2018-01-19 | Day surgery (SDC) | payer OTHER ==
[2018-01-16 13:32] VITALS: BMI 29.0
[~2018-01-19] MED LIST: ACETAMINOPHEN TAB 325 MG TAB ONE; ACETAMINOPHEN TAB 325 MG TAB PO PRN; ALPRAZolam 0.25 MG TAB PO PRN; ASPIRIN 325 MG TAB PO ONE; ATORVASTATIN 40 MG TAB PO SCH; CLOPIDOGREL 75 MG TAB PO SCH; IOPAMIDOL-370 125ML BTL INJ ONE; IOPAMIDOL-370 50ML BTL INJ ONE; ISOSORBIDE MONONITRATE ER 30 MG TAB.ER.24H PO SCH; LIDOCAINE 1% (PF) 10MG/ML VIAL SQ ONE; LIDOCAINE 1% INJ 10MG/ML (20 ML MDV) SQ ONE; LISINOPRIL 10 MG TAB PO SCH; METOPROLOL TARTRATE 25 MG TAB PO SCH; MIDAZOLAM 2 MG/2 ML VIAL IVP ONE; NITROGLYCERIN SL TABS 0.4 MG TAB SUBLINGUAL PRN; NON-FORMULARY DRUG (Aspirin Ec 81 MG) PO SCH; RX INFO: IV CONTRAST WAS GIVEN 1 EACH MISC MISCELLANE PRN; SODIUM CHLORIDE 0.9% 1,000 ML IV SCH; SODIUM CHLORIDE 0.9% 1,000 ML in EMPTY BAG 1 BAG IV ONE; VERAPAMIL SYRINGE (5 MG/10 ML) INTRAARTER ONE; fentaNYL (PF) 50 MCG/ML 2 ML AMP IVP ONE
[2018-01-19 07:04] VITALS: RESP 18
[2018-01-19 07:09] LABS: Glucose,Whole Blood 123 mg/dL (75-99)
[2018-01-19 08:55] VITALS: TEMP 98.2
--- NOTE | 2018-01-19 09:40 | CC ---
CARDIAC CATHETERIZATION REPORT Mr. Cornejo is a 42-year-old male with a known history of coronary artery disease, status post percutaneous revascularization, history of hypertension, hyperlipidemia, diabetes mellitus, who has been complaining of ongoing episode of chest discomfort, not always exertional in pattern. Because of his persistent symptoms and her prior history, recommendation made regarding cardiac catheterization. The procedures, risks and complication were discussed with the patient who is in full understanding and agreement. PROCEDURE: Patient was brought to lab courier in a fasting semi-sedated state after receiving fentanyl and Benadryl and achieving moderate conscious state. Using Xylocaine anesthesia such technique a 6-Peruvian sheath was introduced in the right radial artery. Because of a radial loop, there was inability to advance the wire in the brachial area. At that time using Xylocaine anesthesia and the Seldinger technique, a 6-Peruvian sheath was introduced in the right femoral artery. Selective right and left angiography performed using 6-Peruvian 4 bend right and left Victorina catheter multiple views including hemiaxial views were obtained. Following that, a 6-Peruvian tight pigtail catheter was introduced into the left ventricle and a 30 degree MONTES DE OCA view of the left ventricle was obtained. Following that, the catheter and sheaths were removed. Hemostasis was obtained with deployment of an Angio-Seal in the right femoral artery and TR band on the right radial artery. There was no immediate complication. Patient is returned to his room in stable condition. Of note, the patient received 5000 units of intravenous heparin as well as intra-arterial verapamil. FINDINGS: 1. LEFT MAIN: This is a large size vessel bifurcating into left circumflex, left anterior descending artery left main coronary artery has no evidence of high-grade stenosis. 2. LEFT ANTERIOR DESCENDING ARTERY: This is a large-sized vessel reaching toward the apex with a wraparound apex segment giving rise to a diagonal branch. The stented segment in the LAD has no evidence of free stenosis with minimal a significant restenosis with 10-20% plaque. The rest of the vessel has no high-grade stenosis. 3. RAMUS INTERMEDIUS: This is a large-sized vessel reaching towards the apical lateral wall. The ramus intermedius stented segment is patent with no evidence of significant obstructive disease. 4. LEFT CIRCUMFLEX: This is a codominant vessel, bifurcating distally PDA and posterolateral segment branches. The left circumflex has no evidence of high-grade stenosis. 5. RIGHT CORONARY ARTERY: This is a codominant vessel giving rise distally to a PDA. The right coronary artery has no evidence of high-grade stenosis. 6. LEFT VENTRICULOGRAM: Left ventriculogram is performed 30-degree MONTES DE OCA view, reveals normal left ventricular size and systolic function. Ejection fraction is 14-16 mmHg. CONCLUSION: 1. Mild intimal disease in the left anterior descending artery with no evidence of significant restenosis. 2. Normal left ventricular size and systolic function. RECOMMENDATION: In view of finding anatomy, I recommend continue medical therapy with the aggressive risk modifications being initiated. Those findings and recommendation were discussed with the patient and his family who is in full understanding and agreement. Duration of procedure 39 minutes. MMODL / IJN: [id number] /
[2018-01-19 16:11] VITALS: PULSE 76
[2018-01-19 16:14] VITALS: BP 112/67
== END | disposition home or self-care (01) ==
LOC: CATHCVL 06:22
PROVIDERS: ATTEND Internal Medicine Interventional Cardiology
DX: I25.110 Atherosclerotic heart disease of native coronary artery with unstable angina pectoris (principal); E11.9 Type 2 diabetes mellitus without complications; I10 Essential (primary) hypertension; E78.2 Mixed hyperlipidemia; Z79.02 Long term (current) use of antithrombotics/antiplatelets; Z79.82 Long term (current) use of aspirin; Z79.899 Other long term (current) drug therapy; Z79.84 Long term (current) use of oral hypoglycemic drugs
CPT/HCPCS: 93458; C1760; C1894 ×2; C1769 ×2; J2250; J2001 ×2; J3010; J1644; Q9967 ×2

== ENCOUNTER 2018-03-30 07:18 | Day surgery (SDC) | payer OTHER ==
[2018-03-29 08:29] VITALS: BMI 32.1
[~2018-03-30 07:18] MED LIST changes: -ACETAMINOPHEN TAB 325 MG TAB ONE; -ACETAMINOPHEN TAB 325 MG TAB PO PRN; -ALPRAZolam 0.25 MG TAB PO PRN; -ASPIRIN 325 MG TAB PO ONE; -ATORVASTATIN 40 MG TAB PO SCH; -CLOPIDOGREL 75 MG TAB PO SCH; -IOPAMIDOL-370 125ML BTL INJ ONE; -IOPAMIDOL-370 50ML BTL INJ ONE; -ISOSORBIDE MONONITRATE ER 30 MG TAB.ER.24H PO SCH; +LACTATED RINGERS 1,000 ML IV SCH; -LIDOCAINE 1% (PF) 10MG/ML VIAL SQ ONE; +LIDOCAINE 1% 20 ML VIAL (10MG/ML) FOR IV START INTRADERMA PRN; -LIDOCAINE 1% INJ 10MG/ML (20 ML MDV) SQ ONE; -LISINOPRIL 10 MG TAB PO SCH; -METOPROLOL TARTRATE 25 MG TAB PO SCH; -MIDAZOLAM 2 MG/2 ML VIAL IVP ONE; -NITROGLYCERIN SL TABS 0.4 MG TAB SUBLINGUAL PRN; -NON-FORMULARY DRUG (Aspirin Ec 81 MG) PO SCH; -RX INFO: IV CONTRAST WAS GIVEN 1 EACH MISC MISCELLANE PRN; -SODIUM CHLORIDE 0.9% 1,000 ML IV SCH; -SODIUM CHLORIDE 0.9% 1,000 ML in EMPTY BAG 1 BAG IV ONE; -VERAPAMIL SYRINGE (5 MG/10 ML) INTRAARTER ONE; -fentaNYL (PF) 50 MCG/ML 2 ML AMP IVP ONE
[2018-03-30 07:47] LABS: Glucose,Whole Blood 133 mg/dL (75-99)
[2018-03-30 07:48] VITALS: RESP 16; TEMP 97.1
[2018-03-30] MEDS ORDERED: LIDOCAINE 1% INJ 10MG/ML (20 ML MDV) ONE (08:36)
[2018-03-30] MEDS ORDERED: ONDANSETRON 4 MG/2 ML VIAL ONE (08:36)
[2018-03-30] MEDS ORDERED: fentaNYL (PF) 50 MCG/ML 2 ML AMP ONE (08:36)
[2018-03-30] MEDS ORDERED: PROPOFOL 10 MG/ML 20 ML VIAL IV ONE (08:36)
--- NOTE | 2018-03-30 09:07 | P.PCN ---
Date of Procedure: 03/30/18 Procedure(s) Performed: Procedure: Esophagogastroduodenoscopy and biopsy. Preoperative diagnosis: Epigastric pain. Postoperative diagnosis: 1. Very small hiatal hernia and low-grade distal esophagitis. 2. Mild gastritis and duodenitis. 3. Biopsies obtained from the duodenum, antrum and esophagus. Preparation and sedation: Was provided by anesthesia. Brief clinical history: The patient is a 42-year-old male with multiple medical problems including history of diabetes mellitus, Coronary Atherosclerotic Heart Disease and prior myocardial infarction, has been recently evaluated for epigastric pain. Had cardiac catheterization and stent placement. The patient was tried on PPI for 2 weeks with no change in his epigastric pain. This evaluation is to assess for esophagitis, complicated reflux disease or other pathology. Procedure: With the patient on his left lateral decubitus position and after informed consent and adequate sedation, I passed the Olympus-GIF 160 video upper endoscope through the cricopharyngeus down the esophagus. GE junction was around 40-41 cm from the incisors and there was a very small less than 1 cm hiatal hernia with esophagitis limited to the distal esophagus close to the GE junction consistent with LA grade B distal esophagitis. There were no strictures or Stanton's esophagus or any evidence of candidiasis. The endoscope was then passed into the stomach which was insufflated with air and inspected in detail including the retroflex view in the cardia. There was mottling and erythema in the antrum consistent with antral gastritis but there were no ulcers or gastric outlet obstruction or any evidence of gastroparesis in the form PHYTOBEZOAR or other evidence of gastric emptying. Pyloric channel did not show any ulcers. Duodenal bulb, post bulbar area and descending duodenum showed minimal erythema. I obtained biopsies from the duodenum, antrum and esophagus then the endoscope was withdrawn. The patient tolerated the procedure well. Plan: The patient was reassured. I suggested that he continue PPI and antireflux diet and measures while we await the biopsy results. In the meantime , I felt it would be helpful to obtain ultrasound of the gallbladder and consider performing a gastric emptying study to a certain that we are not dealing with gallbladder disease or gastroparesis as the cause of his symptoms. I will be happy to see in the office if his symptoms persist. He will follow up with you as planned.
[2018-03-30 09:20] VITALS: BP 112/76; PULSE 76
== END 2018-03-30 09:44 | disposition home or self-care (01) ==
LOC: ORWHC2ENDO 07:18
DX: K29.50 Unspecified chronic gastritis without bleeding (principal); K20.9 Esophagitis, unspecified; K44.9 Diaphragmatic hernia without obstruction or gangrene; K29.80 Duodenitis without bleeding; I25.10 Atherosclerotic heart disease of native coronary artery without angina pectoris; E11.9 Type 2 diabetes mellitus without complications; I10 Essential (primary) hypertension; E78.5 Hyperlipidemia, unspecified; I25.2 Old myocardial infarction; Z95.5 Presence of coronary angioplasty implant and graft; Z79.84 Long term (current) use of oral hypoglycemic drugs; Z79.02 Long term (current) use of antithrombotics/antiplatelets; Z79.82 Long term (current) use of aspirin; Z79.899 Other long term (current) drug therapy
CPT/HCPCS: 88305; 43239; J2405; J2001; J3010; J2704

== ENCOUNTER → 2018-04-27 | Outpatient (CLI) | payer OTHER ==
--- NOTE | 2018-04-27 09:52 | NM ---
EXAMINATION TYPE: NM gastric emptying study DATE OF EXAM: 04/27/2018 COMPARISON: NONE HISTORY: Epigastric pain per order. Additional symptoms of heartburn and reflux per patient. Following administration of 1. mCi Tc 99m Sulfur Colloid with 1 cup of oatmeal projection images of t he abdomen were obtained 5 minutes post ingestion. When possible, both anterior and posterior project ion images were obtained to allow the calculation of the geometric mean activity. Clearance: 69 % Half-life: 45 min IMPRESSION: Gastric emptying: No scintigraphic evidence for gastroparesis. Gastric emptying is faster than jorge l. Gastric emptying normal percentage values: 30 minutes: <70% of retention (> 30% emptying) suggests abnormally fast emptying. 60 minutes: <90% retention (>10% emptying) is normal; less than 30% retention (>70% emptying) suggest s abnormally rapid emptying. 90 minutes: <65% retention (> 35% emptying) is normal. 120 minutes: <60% retention (> 40% emptying) is normal. 180 minutes: <30% retention (> 70% emptying) is normal. Gastric emptying T-1/2: Solid: The normal range is 60-105 minutes Additional references: Gastric Emptying Scintigraphy [email or web address]://[email or web address]
== END | disposition home or self-care (01) ==
LOC: RADNMMAIN 06:52
DX: R10.13 Epigastric pain (principal)
CPT/HCPCS: 78264; A9541

== ENCOUNTER → 2018-05-01 | Outpatient (CLI) | payer OTHER ==
--- NOTE | 2018-05-01 07:57 | US ---
EXAMINATION TYPE: US abdomen complete DATE OF EXAM: 05/01/2018 COMPARISON: NONE CLINICAL HISTORY: R10.13 Epigastric pain. Nausea EXAM MEASUREMENTS: Liver Length: 16.9 cm Gallbladder Wall: 0.2 cm CBD: 0.4 cm Spleen: 10.8 cm Right Kidney: 14.1 x 7.1 x 6.6 cm Left Kidney: 13.3 x 6.1 x 5.8 cm Pancreas: Obscured by bowel gas Liver: There is increased echogenicity of the hepatic parenchyma with diminished visualization of th e portal triads most commonly relating to hepatic steatosis and limiting evaluation for underlying he patic masses. Focal area of hypoechogenicity is seen in segment IVb of the liver near the gallbladder fossa. This is a typical location of focal fatty sparing. This is also geographic in appearance supp orting the diagnosis of focal fatty sparing. Gallbladder: wnl Evidence for sonographic Boyd's sign: No CBD: wnl Spleen: wnl Right Kidney: wnl Left Kidney: wnl Upper IVC: wnl Abd Aorta: Proximal Aorta obscured by overlying bowel gas. The intrahepatic portion of the IVC and proximal abdominal aorta are within normal limits. There is no evidence of cholelithiasis. Common bile duct is unremarkable. The visualized portions of the haney creas are homogenous. The spleen is unremarkable. Kidneys are symmetric and free of hydronephrosis. No renal lesions are seen. IMPRESSION: 1. No sonographic evidence of cholelithiasis nor acute cholecystitis. 2. Findings most commonly related to hepatic steatosis, overall appearing mild in degree, with focal hypoechogenicity in segment IVb of the liver that is a typical location of focal fatty sparing. If th ere is further clinical concern [address] could be performed for further characterization. 3. Obscuration of the pancreas and proximal abdominal aorta by overlying bowel gas.
== END ==
LOC: RADUSWWP 07:00
DX: R10.13 Epigastric pain (principal)
CPT/HCPCS: 76700

== ENCOUNTER 2018-09-06 14:02 | Observation (INO) | payer OTHER ==
[2018-09-06 14:53] LABS: Basophils % (A) 0 %; Eosinophils # (A) 0.1 k/uL (0-0.7); Eosinophils % (A) 1 %; HCT 49.4 % (39.0-53.0); Lymphocytes # (A) 1.8 k/uL (1.0-4.8); Lymphocytes % (A) 26 %; MCH 28.6 pg (25.0-35.0); MCHC 32.4 g/dL (31.0-37.0); MCV 88.3 fL (80.0-100.0); Mean Platelet Volume 6.6; Monocytes # (A) 0.4 k/uL (0-1.0); Monocytes % (A) 6 %; Neutrophils # (A) 4.5 k/uL (1.3-7.7); Neutrophils % (A) 65 %; Platelet Count 275 k/uL (150-450); RDW 12.7 % (11.5-15.5); WBC 6.9 k/uL (3.8-10.6)
[2018-09-06] MEDS ORDERED: SODIUM CHLORIDE 0.9% 1,000 ML IV STA (15:05)
[2018-09-06 15:06] LABS: ALT 86 U/L (21-72); AST 44 U/L (17-59); Albumin 4.9 g/dL (3.5-5.0); Alkaline Phosphatase 58 U/L (38-126); Anion Gap 10 mmol/L; Blood Urea Nitrogen 18 mg/dL (9-20); Calcium 10.1 mg/dL (8.4-10.2); Carbon Dioxide 30 mmol/L (22-30); Chloride 99 mmol/L (98-107); Glucose 142 mg/dL (74-99); Magnesium 1.8 mg/dL (1.6-2.3); Potassium 4.8 mmol/L (3.5-5.1); Sodium 139 mmol/L (137-145); Total Bilirubin 0.7 mg/dL (0.2-1.3); Total Protein 7.8 g/dL (6.3-8.2)
--- NOTE | 2018-09-06 15:06 | ED ---
Chest Pain HPI - General Chief Complaint: Chest Pain Stated Complaint: Chest pain, left sided pain Time Seen by Provider: 09/06/18 15:04 Source: patient, RN notes reviewed, old records reviewed Mode of arrival: ambulatory Limitations: no limitations - History of Present Illness Initial Comments: This is a 42-year-old male the ER for evasive chest pain left-sided chest pain left arm pain. Patient states this feels just like prior episodes of stenting with LA. Patient had no ST elevation of prior EKGs but he does state he has had a issues of this chest pain before. He had a heart catheterization about 6 months ago, unsure of exact results. He states he was normal without intervention. Patient states he has pain continue for a day or 2. Worsening in today. No shortness of breath no diaphoresis MD Complaint: chest pain -: days(s) Pain Location: left chest Pain Radiation: LUE Severity: mild, moderate Severity scale (1-10): 5 Quality: similar to prior LA Consistency: constant Other Symptoms: palpitations, burping Treatments Prior to Arrival: none - Related Data Home Medications Medication Instructions Recorded Confirmed Lisinopril [Zestril] 10 mg PO DAILY 12/23/14 09/06/18 Atorvastatin [Lipitor] 40 mg PO DAILY 02/18/16 09/06/18 Clopidogrel [Plavix] 75 mg PO DAILY 02/18/16 09/06/18 metFORMIN HCL [Glucophage] 500 mg PO DAILY 02/18/16 09/06/18 Isosorbide Mononitrate ER [Imdur] 60 mg PO DAILY 01/16/18 09/06/18 Ezetimibe [Zetia] 10 mg PO DAILY 09/06/18 09/06/18 Previous Rx's Medication Instructions Recorded Aspirin EC [Ecotrin Low Dose] 81 mg PO DAILY #90 tablet. 12/25/14 Metoprolol Tartrate [Lopressor] 25 mg PO BID #120 tab 12/25/14 Nitroglycerin Sl Tabs [Nitrostat] 0.4 mg SUBLINGUAL Q5M PRN #0 tab 06/08/16 Allergies Allergy/AdvReac Type Severity Reaction Status Date / Time No Known Allergies Allergy Verified 09/06/18 15:23 Review of Systems ROS Statement: Those systems with pertinent positive or pertinent negative responses have been documented in the HPI. ROS Other: All systems not noted in ROS Statement are negative. EKG Findings - EKG Comments: EKG Findings:: EKG shows sinus rhythm rate of 73, DC 136, QRS 160, QTc 434 Past Medical History Past Medical History: Coronary Artery Disease (CAD), Chest Pain / Angina, Diabetes Mellitus, Hyperlipidemia, Hypertension, Myocardial Infarction (LA) Additional Past Medical History / Comment(s): Pt was recently admitted to [facility] on 12/24/14 with a STEMI and had 2 stents placed to his ramus intermedius and mid LAD. Last Myocardial Infarction Date:: 12/24/14 History of Any Multi-Drug Resistant Organisms: None Reported Past Surgical History: Heart Catheterization, Heart Catheterization With Stent Additional Past Surgical History / Comment(s): 12/24/14 PCI with stent in ramus intermedius and mid LAD. THEN 01-01-15 CAME IN WITH VAGUE CHEST PAIN SYMPTOMS HAD REPEAT CATH BUT PT STATED NO MORE STENTS STATED HE HAD SPASMS. 06/07/16 heart stent Past Anesthesia/Blood Transfusion Reactions: No Reported Reaction Additional Past Anesthesia/Blood Transfusion Reaction / Comment(s): Pt has never had general anesthesia or blood transfusion. Date of Last Stent Placement:: 06/07/16 Past Psychological History: No Psychological Hx Reported Smoking Status: Never smoker - Past Family History Father Family Medical History: No Reported History Additional Family Medical History / Comment(s): Father is 66yrs old and healthy Mother Family Medical History: No Reported History, Deep Vein Thrombosis (DVT) Additional Family Medical History / Comment(s): Mother is 57yrs old and healthy. General Exam Limitations: no limitations General appearance: alert, in no apparent distress Head exam: Present: atraumatic, normocephalic, normal inspection Eye exam: Present: normal appearance, PERRL, EOMI. Absent: scleral icterus, conjunctival injection, periorbital swelling ENT exam: Present: normal exam, mucous membranes moist Neck exam: Present: normal inspection. Absent: tenderness, meningismus, lymphadenopathy Respiratory exam: Present: normal lung sounds bilaterally. Absent: respiratory distress, wheezes, rales, rhonchi, stridor Cardiovascular Exam: Present: regular rate, normal rhythm, normal heart sounds. Absent: systolic murmur, diastolic murmur, rubs, gallop, clicks GI/Abdominal exam: Present: soft, normal bowel sounds. Absent: distended, tenderness, guarding, rebound, rigid Extremities exam: Present: normal inspection, full ROM, normal capillary refill. Absent: tenderness, pedal edema, joint swelling, calf tenderness Back exam: Present: normal inspection Neurological exam: Present: alert, oriented X3, CN II-XII intact Psychiatric exam: Present: normal affect, normal mood Skin exam: Present: warm, dry, intact, normal color. Absent: rash Course Vital Signs 09/06/18 09/06/18 09/06/18 14:19 15:40 16:39 Temperature 98.2 F Pulse Rate 82 69 68 Respiratory 16 16 16 Rate Blood Pressure 136/77 126/85 132/93 O2 Sat by Pulse 97 94 L 94 L Oximetry - Reevaluation(s) Reevaluation #1: 09/06/18 17:26 Medical record is reviewed Reevaluation #2: 09/06/18 17:26 Patient still does continue with chest pain Chest Pain MDM - MDM 19 female the ER with known history of CAD and stents, coming in with chest pain. Patient be admitted for unstable angina acute coronary syndrome evaluation of chest pain by cardiology. Critical Care Time Critical Care Time: Yes Total Critical Care Time: 31 Disposition Clinical Impression: Unstable angina pectoris, Chest pain Disposition: ADMITTED IP TO THIS HOSP Condition: Undetermined Is patient prescribed a controlled substance at d/c from ED?: No Referrals: rCys House MD [Primary Care Provider] - 1-2 days
[2018-09-06 15:10] LABS: D-Dimer <0.17 mg/L FEU (<0.60); Partial Thromboplastin Time 25.6 sec (22.0-30.0); Prothrombin Time 10.9 sec (9.0-12.0)
[2018-09-06 15:39] LABS: Creatine Kinase 372 U/L (55-170); Lipase 97 U/L (23-300)
[2018-09-06] MEDS ORDERED: HEPARIN SODIUM,PORCINE 5,000 UNIT/ML 1 ML VIAL IV ONE (17:24)
[2018-09-06] MEDS ORDERED: ASPIRIN 81 MG PO STA (17:24)
[2018-09-06] MEDS ORDERED: HEPARIN SODIUM,PORCINE 5,000 UNIT/ML 1 ML VIAL IV PRN (17:24)
[2018-09-06] MEDS ORDERED: NITROGLYCERIN SL TABS 0.4 MG TAB SUBLINGUAL PRN (17:24)
[2018-09-06] MEDS ORDERED: HEPARIN SOD,PORK IN 0.45% NACL 25,000 UNIT in 0.45% NACL 1 250ML.BAG IV SCH (17:30)
[2018-09-06 18:45] VITALS: BMI 32.1
[2018-09-06 20:34] LABS: Glucose,Whole Blood 139 mg/dL (75-99)
[2018-09-06] MEDS ORDERED: METOPROLOL TARTRATE 25 MG TAB PO SCH (21:00)
[2018-09-06] MEDS: SODIUM CHLORIDE 0.9% 1,000 ML IV SCH (21:14)
[2018-09-07] MEDS: NITROGLYCERIN OINT 1 INCH/GM PACKET TOPICAL SCH ×2 (02:51→03:30)
[2018-09-07 06:48] LABS: Glucose,Whole Blood 101 mg/dL (75-99)
[2018-09-07 08:24] LABS: Mean Platelet Volume 6.8; Platelet Count 262 k/uL (150-450)
[2018-09-07 08:48] LABS: Cholesterol 95 mg/dL (<200); HDL Cholesterol 29 mg/dL (40-60); LDL Cholesterol,Calculated 43 mg/dL (0-99); Triglycerides 117 mg/dL (<150)
[2018-09-07] MEDS ORDERED: ASPIRIN 325 MG TAB PO SCH (09:00)
[2018-09-07] MEDS ORDERED: ATORVASTATIN 80 MG TAB PO SCH (09:00)
--- NOTE | 2018-09-07 10:08 | P.CRDCN ---
History of Present Illness History of present illness: This is a pleasant 42-year-old male past medical history significant for coronary artery disease status post stent placement to the mid LAD first in 2014 and then again in 2017 and proximal ramus 2015, retention, dyslipidemia, diabetes mellitus and gastroesophageal reflux disease. He follows in the office with Dr. Hickey. He most recently underwent cardiac catheterization in January 2018 revealing a patent stent in the ramus, patent stent in the mid LAD with evidence of 10-20% plaque around the stent. We have asked to see him in consultation secondary to chest discomfort. He states about Tuesday he has been feeling a tingling sensation in the left arm radiating up into the left shoulder associated with a mild pressure in the midsternal region. He states it feels like somebody is pressing her hand against his chest right in the middle and this is also associated with some nausea. The symptoms have been mostly constant since Tuesday with no specific aggravating or alleviating factors. His chest pain has subsided however he continues to feel arm tingling. EKG reveals non-specific ST abnormalities. Laboratory data reviewed, cardiac enzymes negative 3, LDL 43, HDL 29, WBC 6.9, hemoglobin 16, platelets 275, d-dimer less than 0.17, sodium 139, potassium 4.8, creatinine 1.02 and magnesium 1.8. Current cardiac medications include aspirin 81 mg daily, atorvastatin 40 mg daily, Plavix 75 mg daily, Zetia 10 mg daily, Imdur 60 mg daily, lisinopril 10 mg daily and Lopressor 25 mg twice a day. Most recent echocardiogram obtained in May 2016 reveals served LV systolic function with ejection fraction 55% with mild tricuspid and mild mitral regurgitation. At the time of my exam: CONSTITUTIONAL: Denies fever. Denies chills. EYES: Denies blurred vision. Denies vision changes. Denies eye pain. EARS, NOSE, MOUTH & THROAT: Denies headache. Denies sore throat. Denies ear pain. CARDIOVASCULAR: Denies chest pain. Denies shortness of breath. Denies orthopnea. Denies PND. Denies palpitations. RESPIRATORY: Denies cough. GASTROINTESTINAL: Denies abdominal pain. Denies diarrhea. Denies constipation. Denies nausea. Denies vomiting. MUSCULOSKELETAL: Complains of pain in the left arm and left shoulder. INTEGUMENTARY: Denies pruitis. Denies rash. NEUROLOGIC: Denies numbness. Denies tingling. Denies weakness. PSYCHIATRIC: Denies anxiety. Denies depression. ENDOCRINE: Denies fatigue. Denies weight change. Denies polydipsia. Denies polyurina. GENITOURINARY: Denies burning, hematuria or urgency with micturation. HEMATOLOGIC: Denies history of anemia. Denies bleeding. Blood pressure 120/80 heart rate 70 afebrile maintaining oxygen saturation on room air GENERAL: This is a 42-year-old male in no apparent distress at the time of my examination. HEENT: Head is atraumatic, normocephalic. Pupils are equal, round. Sclerae anicteric. Conjunctivae are clear. Mucous membranes of the mouth are moist. Neck is supple. There is no jugular venous distention. No carotid bruit is heard. LUNGS: Clear to auscultation no wheezes, rales or rhonchi. No chest wall tenderness is noted on palpation or with deep breathing. HEART: Regular rate and rhythm without murmurs, rubs or gallops. S1 and S2 heard. ABDOMEN: Soft, nontender. Bowel sounds are heard. No organomegaly noted. EXTREMITIES: No evidence of peripheral edema and no calf tenderness noted. VASCULAR: Radial and dorsalis pedis pulses palpated, no evidence of clubbing. NEUROLOGIC: Patient is awake, alert and oriented x3. ASSESSMENT Chest pain, atypical for angina. An acute coronary event has been ruled out. History of coronary artery disease status post stent placement. Most recent catheterization performed January 2018 revealed patent stents with no progression of CAD. Hypertension Dyslipidemia Diabetes mellitus PLAN An acute coronary event has been ruled out. Obtain 2-D echocardiogram and Doppler study to assess cardiac structure and function. Perform Cardiolite stress test to assess for reversible cardiac ischemia. Continue aspirin, atorvastatin, Plavix, cardiac, Imdur, lisinopril and Lopressor as previously ordered. If stress test is abnormal we will consider coronary angiography, if normal he may be discharged home to see Dr. Hickey in the office. Thank you kindly for this consultation. Nurse Practitioner note has been reviewed, I agree with a documented findings and plan of care. Patient was seen and examined. Past Medical History Past Medical History: Coronary Artery Disease (CAD), Chest Pain / Angina, Diabetes Mellitus, GERD/Reflux, Hyperlipidemia, Hypertension, Myocardial Infarction ([place]) Additional Past Medical History / Comment(s): Pt was recently admitted to [facility] on 12/24/14 with a STEMI and had 2 stents placed to his ramus intermedius and mid LAD. Last Myocardial Infarction Date:: 12/24/14 History of Any Multi-Drug Resistant Organisms: None Reported Past Surgical History: Heart Catheterization, Heart Catheterization With Stent Additional Past Surgical History / Comment(s): 12/24/14 PCI with stent in ramus intermedius and mid LAD. THEN 01-01-15 CAME IN WITH VAGUE CHEST PAIN SYMPTOMS HAD REPEAT CATH BUT PT STATED NO MORE STENTS STATED HE HAD SPASMS. 06/07/16 heart stent, EGD Past Anesthesia/Blood Transfusion Reactions: No Reported Reaction Additional Past Anesthesia/Blood Transfusion Reaction / Comment(s): Pt has never had general anesthesia or blood transfusion. Date of Last Stent Placement:: 06/07/16 Past Psychological History: No Psychological Hx Reported Additional Psychological History / Comment(s): Pt resides with his spouse and 4 children. 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 Smoking Status: Never smoker Past Alcohol Use History: None Reported Past Drug Use History: None Reported - Past Family History Father Family Medical History: Diabetes Mellitus Additional Family Medical History / Comment(s): Father is 66yrs old and healthy Mother Family Medical History: Deep Vein Thrombosis (DVT) Additional Family Medical History / Comment(s): Mother is 57yrs old and healthy. Medications and Allergies Home Medications Medication Instructions Recorded Confirmed Type Lisinopril [Zestril] 10 mg PO DAILY 12/23/14 09/06/18 History Aspirin EC [Ecotrin Low Dose] 81 mg PO DAILY #90 tablet. 12/25/14 09/06/18 Rx Metoprolol Tartrate [Lopressor] 25 mg PO BID #120 tab 12/25/14 09/06/18 Rx Atorvastatin [Lipitor] 40 mg PO DAILY 02/18/16 09/06/18 History Clopidogrel [Plavix] 75 mg PO DAILY 02/18/16 09/06/18 History metFORMIN HCL [Glucophage] 500 mg PO DAILY 02/18/16 09/06/18 History Nitroglycerin Sl Tabs [Nitrostat] 0.4 mg SUBLINGUAL Q5M PRN #0 tab 06/08/16 09/06/18 Rx Isosorbide Mononitrate ER [Imdur] 60 mg PO DAILY 01/16/18 09/06/18 History Ezetimibe [Zetia] 10 mg PO DAILY 09/06/18 09/06/18 History Allergies Allergy/AdvReac Type Severity Reaction Status Date / Time No Known Allergies Allergy Verified 09/06/18 15:23 Physical Exam Vitals: Vital Signs Temp Pulse Pulse Resp BP BP Pulse Ox 09/07/18 04:00 18 09/07/18 03:46 97.8 F 67 18 119/78 94 L 09/07/18 00:00 97.5 F L 58 L 18 118/80 97 09/06/18 20:00 18 09/06/18 18:11 71 17 138/83 97 09/06/18 17:47 98 F 64 16 145/100 97 09/06/18 16:39 68 16 132/93 94 L 09/06/18 15:40 69 16 126/85 94 L 09/06/18 14:19 98.2 F 82 16 136/77 97 Intake and Output 09/06/18 09/07/18 09/07/18 22:59 06:59 14:59 Intake Total 62.031 Balance 62.031 Intake: Intake, IV Titration 62.031 Amount Heparin Sod,Pork in 0.45% 62.031 NaCl 25,000 unit In 0.45 % NaCl 1 250ml.bag @ 9.59 UNITS/KG/HR 10.005 mls/ hr IV .Q24H [facility] Rx#: [id number] Other: Voiding Method Toilet Toilet Results 09/07/18 08:10 09/06/18 14:34 Cardiac Enzymes 09/06/18 09/06/18 09/06/18 Range/Units 14:34 14:34 20:13 AST 44 (17-59) U/L Troponin I <0.012 <0.012 (0.000-0.034) ng/mL 09/07/18 Range/Units 03:05 AST (17-59) U/L Troponin I <0.012 (0.000-0.034) ng/mL Coagulation 09/06/18 09/06/18 Range/Units 14:34 23:29 PT 10.9 (9.0-12.0) sec APTT 25.6 37.6 H (22.0-30.0) sec CBC 09/06/18 Range/Units 14:34 WBC 6.9 (3.8-10.6) k/uL RBC 5.60 (4.30-5.90) m/uL Hgb 16.0 (13.0-17.5) gm/dL Hct 49.4 (39.0-53.0) % Plt Count 275 (150-450) k/uL Comprehensive Metabolic Panel 09/06/18 Range/Units 14:34 Sodium 139 (137-145) mmol/L Potassium 4.8 (3.5-5.1) mmol/L Chloride 99 (98-107) mmol/L Carbon Dioxide 30 (22-30) mmol/L BUN 18 (9-20) mg/dL Creatinine 1.02 (0.66-1.25) mg/dL Glucose 142 H (74-99) mg/dL Calcium 10.1 (8.4-10.2) mg/dL AST 44 (17-59) U/L ALT 86 H (21-72) U/L Alkaline Phosphatase 58 (38-126) U/L Total Protein 7.8 (6.3-8.2) g/dL Albumin 4.9 (3.5-5.0) g/dL Current Medications Generic Name Dose Route Start Last Admin Trade Name Freq PRN Reason Stop Dose Admin Aspirin 325 mg 09/07/18 09:00 Aspirin PO DAILY [facility] Atorvastatin Calcium 80 mg 09/07/18 09:00 Lipitor PO DAILY [facility] Heparin Sodium (Porcine) 0 unit 09/06/18 17:24 Heparin IV Q6HR PRN Low PTT Protocol Heparin Sodium/Sodium Chloride 250 mls @ 10.005 mls/hr 09/06/18 17:30 09/06/18 23:58 25,000 unit/ Sodium Chloride IV 12.59 units/kg/hr .Q24H [facility] 13.135 mls/hr Titration Protocol 9.59 UNITS/KG/HR Sodium Chloride 1,000 mls @ 20 mls/hr 09/06/18 17:30 09/06/18 21:14 Saline 0.9% IV Not Given .Q24H [facility] Metoprolol Tartrate 25 mg 09/06/18 21:00 09/06/18 21:15 Lopressor PO 25 mg BID [facility] Administration Nitroglycerin 0.4 mg 09/06/18 17:24 Nitrostat SUBLINGUAL Q5M PRN Chest Pain Nitroglycerin 1 inch 09/07/18 00:00 09/07/18 03:30 Nitro-Bid Oint TOPICAL 1 inch Q6HR [facility] Administration Intake and Output 09/06/18 09/07/18 09/07/18 22:59 06:59 14:59 Intake Total 62.031 Balance 62.031 Intake: Intake, IV Titration 62.031 Amount Heparin Sod,Pork in 0.45% 62.031 NaCl 25,000 unit In 0.45 % NaCl 1 250ml.bag @ 9.59 UNITS/KG/HR 10.005 mls/ hr IV .Q24H [facility] Rx#: [id number] Other: Voiding Method Toilet Toilet 09/06/18 14:34 09/06/18 14:34
--- NOTE | 2018-09-07 11:03 | EST ---
EXERCISE STRESS DATE OF SERVICE: 09/07/2018 AGE: 42 SEX: Male HT: 5'11" WT: 228 pounds PROTOCOL: Cardiolite Missael STAGE: IV DURATION OF EXERCISE: 10 minutes HEART RATE REST: 80 BLOOD PRESSURE REST: 118/76 MAXIMUM HEART RATE ACHIEVED: 165 MAXIMUM BLOOD PRESSURE: 164/104 85% MPHR: 150 100% MPHR: 177 METS: 11 INDICATIONS: Chest pain. CLINICAL INFORMATION: Baseline EKG shows sinus rhythm, normal axis, normal intervals. Patient exercised on Missael protocol for a total of 10 minutes achieving 11 METs, 95% of predicted maximal heart rate without chest pain or diagnostic ST-segment depression. CONCLUSIONS: 1. Excellent exercise tolerance. 2. Negative stress test by EKG criteria. 3. Cardiolite portion of the stress test will be reported separately. MMODL / IJN: [id number] /
[2018-09-07 11:10] LABS: ALT 90 U/L (21-72); AST 36 U/L (17-59); Albumin 4.1 g/dL (3.5-5.0); Alkaline Phosphatase 52 U/L (38-126); Anion Gap 5 mmol/L; Blood Urea Nitrogen 15 mg/dL (9-20); Calcium 9.3 mg/dL (8.4-10.2); Carbon Dioxide 29 mmol/L (22-30); Chloride 105 mmol/L (98-107); Glucose 111 mg/dL (74-99); Potassium 4.9 mmol/L (3.5-5.1); Sodium 139 mmol/L (137-145); Total Bilirubin 0.6 mg/dL (0.2-1.3); Total Protein 6.7 g/dL (6.3-8.2)
--- NOTE | 2018-09-07 11:13 | ECHOF ---
Referral Reason:cp MEASUREMENTS -------- HEIGHT: 180.3 cm WEIGHT: 104.3 kg BP: RVIDd: 3.4 cm (< 3.3) IVSd: 1.4 cm (0.6 - 1.1) LVIDd: 4.2 cm (3.9 - 5.3) LVPWd: 1.4 cm (0.6 - 1.1) IVSs: 1.7 cm LVIDs: 2.8 cm LVPWs: 1.7 cm LA Diam: 4.0 cm (2.7 - 3.8) LAESV Index (A-L): 16.90 ml/m Ao Diam: 3.7 cm (2.0 - 3.7) AV Cusp: 2.6 cm (1.5 - 2.6) MV EXCURSION: 15.618 mm (> 18.000) MV EF SLOPE: 55 mm/s (70 - 150) EPSS: 0.8 cm MV E Miguel: 0.59 m/s MV DecT: 302 ms MV A Miguel: 0.78 m/s MV E/A Ratio: 0.75 RAP: 5.00 mmHg RVSP: 23.58 mmHg FINDINGS -------- Sinus rhythm. This was a technically good study. The left ventricular size is normal. There is moderate concentric left ventricular hypertrophy. O verall left ventricular systolic function is normal with, an EF between 60 - 65 %. The right ventricle is mildly enlarged. Normal LA size by volume 22+/-6 ml/m2. The right atrium is normal in size. Interatrial and interventricular septum intact. The aortic valve is trileaflet and appears structurally normal. The mitral valve is normal. Mild tricuspid regurgitation present. Right ventricular systolic pressure is normal at < 35 mmHg. There is no pulmonic regurgitation present. The aortic root size is normal. Normal inferior vena cava with normal inspiratory collapse consistent with estimated right atrial pre ssure of 5 mmHg. There is no pericardial effusion. CONCLUSIONS -------- 1. Sinus rhythm. 2. This was a technically good study. 3. The left ventricular size is normal. 4. There is moderate concentric left ventricular hypertrophy. 5. Overall left ventricular systolic function is normal with, an EF between 60 - 65 %. 6. The right ventricle is mildly enlarged. 7. Normal LA size by volume 22+/-6 ml/m2. 8. The right atrium is normal in size. 9. Interatrial and interventricular septum intact. 10. The aortic valve is trileaflet and appears structurally normal. 11. The mitral valve is normal. 12. Mild tricuspid regurgitation present. 13. Right ventricular systolic pressure is normal at < 35 mmHg. 14. There is no pulmonic regurgitation present. 15. The aortic root size is normal. 16. Normal inferior vena cava with normal inspiratory collapse consistent with estimated right atrial pressure of 5 mmHg. 17. There is no pericardial effusion. HAND WRAPPER OPERATOR: Lindsay Burris RDCS
--- NOTE | 2018-09-07 11:22 | NM ---
EXAMINATION TYPE: NM stress cardiolite complete DATE OF EXAM: 09/07/2018 COMPARISON: NONE HISTORY: Chest pain TECHNIQUE: After the intravenous administration of 9.97 mCi Tc 99m Sestamibi - Rest images obtained 45 minutes post injection. The patient exercised using a BHARTI protocol and 1 minute prior to peak exercise was injected with 26.2 mCi Tc 99m Sestamibi - Stress images obtained 10 minutes post injecti on. FINDINGS: Targeted heart rate was achieved during performance of the study. Review of stress and rest SPECT aniket ges demonstrates no distinct perfusion abnormality. Gated analysis shows normal wall motion with an estimated left ventricular ejection fraction of 62 %. TID is calculated within normal limits at 0.79 IMPRESSION: No scintigraphic evidence for reversible ischemia.
--- NOTE | 2018-09-07 11:44 | P.HPIM ---
History of Present Illness H&P Date: 09/07/18 Chief Complaint: Chest pain This is a 42-year-old male with a known history of coronary artery disease with previous cardiac stents, myocardial infarction, gerd, diabetes mellitus, hyperlipidemia and hypertension. Patient presents to the emergency room with complaints of chest discomfort in the epigastric area with tingling down the left arm. Patient does describe the chest discomfort as a burning sensation. Had similar symptoms during his previous heart attack. Patient was started on IV heparin in the ER. His last heart catheterization was in 2017 revealing a patent stent in the ramus, patent stent in the mid LAD with evidence of 10-20% plaque surrounding the stent. Patient's troponins were negative 3 sets. D- dimer was of normal range. EKG normal sinus rhythm with a bundle branch block. Patient reports that he stopped taking his antiacid medication about a month ago. He has had EGD in March 2018 with gastritis and duodenitis and esophagitis with a small hiatal hernia. Lipase was normal. ALT elevated at 90. Patient denies any nausea or vomiting, bowel movement changes or urinary symptoms. Denies any fever chills or sweats. Denies any new injury to the neck or left shoulder. Review of Systems Please refer to HPI otherwise unremarkable Past Medical History Past Medical History: Coronary Artery Disease (CAD), Chest Pain / Angina, Diabetes Mellitus, GERD/Reflux, Hyperlipidemia, Hypertension, Myocardial Infarction ([place]) Additional Past Medical History / Comment(s): Pt was recently admitted to [facility] on 12/24/14 with a STEMI and had 2 stents placed to his ramus intermedius and mid LAD. Last Myocardial Infarction Date:: 12/24/14 History of Any Multi-Drug Resistant Organisms: None Reported Past Surgical History: Heart Catheterization, Heart Catheterization With Stent Additional Past Surgical History / Comment(s): 12/24/14 PCI with stent in ramus intermedius and mid LAD. THEN 01-01-15 CAME IN WITH VAGUE CHEST PAIN SYMPTOMS HAD REPEAT CATH BUT PT STATED NO MORE STENTS STATED HE HAD SPASMS. 06/07/16 heart stent, EGD Past Anesthesia/Blood Transfusion Reactions: No Reported Reaction Additional Past Anesthesia/Blood Transfusion Reaction / Comment(s): Pt has never had general anesthesia or blood transfusion. Date of Last Stent Placement:: 06/07/16 Past Psychological History: No Psychological Hx Reported Additional Psychological History / Comment(s): Pt resides with his spouse and 4 children. 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 Smoking Status: Never smoker Past Alcohol Use History: None Reported Past Drug Use History: None Reported - Past Family History Father Family Medical History: Diabetes Mellitus Additional Family Medical History / Comment(s): Father is 66yrs old and healthy Mother Family Medical History: Deep Vein Thrombosis (DVT) Additional Family Medical History / Comment(s): Mother is 57yrs old and healthy. Medications and Allergies Home Medications Medication Instructions Recorded Confirmed Type Lisinopril [Zestril] 10 mg PO DAILY 12/23/14 09/06/18 History Aspirin EC [Ecotrin Low Dose] 81 mg PO DAILY #90 tablet. 12/25/14 09/06/18 Rx Metoprolol Tartrate [Lopressor] 25 mg PO BID #120 tab 12/25/14 09/06/18 Rx Atorvastatin [Lipitor] 40 mg PO DAILY 02/18/16 09/06/18 History Clopidogrel [Plavix] 75 mg PO DAILY 02/18/16 09/06/18 History metFORMIN HCL [Glucophage] 500 mg PO DAILY 02/18/16 09/06/18 History Nitroglycerin Sl Tabs [Nitrostat] 0.4 mg SUBLINGUAL Q5M PRN #0 tab 06/08/16 09/06/18 Rx Isosorbide Mononitrate ER [Imdur] 60 mg PO DAILY 01/16/18 09/06/18 History Ezetimibe [Zetia] 10 mg PO DAILY 09/06/18 09/06/18 History Allergies Allergy/AdvReac Type Severity Reaction Status Date / Time No Known Allergies Allergy Verified 09/06/18 15:23 Physical Exam Vitals: Vital Signs Temp Pulse Pulse Resp BP BP BP 09/07/18 07:25 97.5 F L 70 17 120/80 09/07/18 04:00 18 09/07/18 03:46 97.8 F 67 18 119/78 09/07/18 00:00 97.5 F L 58 L 18 118/80 09/06/18 20:00 18 09/06/18 18:11 71 17 138/83 09/06/18 17:47 98 F 64 16 145/100 09/06/18 16:39 68 16 132/93 09/06/18 15:40 69 16 126/85 09/06/18 14:19 98.2 F 82 16 136/77 Pulse Ox 09/07/18 07:25 96 09/07/18 04:00 09/07/18 03:46 94 L 09/07/18 00:00 97 09/06/18 20:00 09/06/18 18:11 97 09/06/18 17:47 97 09/06/18 16:39 94 L 09/06/18 15:40 94 L 09/06/18 14:19 97 Intake and Output 09/06/18 09/07/18 09/07/18 22:59 06:59 14:59 Intake Total 62.031 Balance 62.031 Intake: Intake, IV Titration 62.031 Amount Heparin Sod,Pork in 0.45% 62.031 NaCl 25,000 unit In 0.45 % NaCl 1 250ml.bag @ 9.59 UNITS/KG/HR 10.005 mls/ hr IV .Q24H [facility] Rx#: [id number] Other: Voiding Method Toilet Toilet Toilet Head normocephalic Neck supple. Full range of motion Lungs clear to auscultation bilaterally no wheezing or crackles Heart regular rate and rhythm S1-S2, no rub or gallop Abdomen is soft mild epigastric discomfort nondistended positive bowel sounds no hepatosplenomegaly Extremities no edema Neuro alert and orientated to 3 Muscle skeletal left shoulder full range of motion. No tenderness with palpation. Results CBC & Chem 7: 09/07/18 08:10 09/07/18 08:10 Labs: Abnormal Lab Results - Last 24 Hours (Table) 09/06/18 09/06/18 09/06/18 Range/Units 14:34 14:34 20:32 APTT (22.0-30.0) sec Glucose 142 H (74-99) mg/dL POC Glucose (mg/dL) 139 H (75-99) mg/dL ALT 86 H (21-72) U/L Creatine Kinase 372 H (55-170) U/L HDL Cholesterol (40-60) mg/dL 09/06/18 09/07/18 09/07/18 Range/Units 23:29 06:43 08:10 APTT 37.6 H (22.0-30.0) sec Glucose (74-99) mg/dL POC Glucose (mg/dL) 101 H (75-99) mg/dL ALT (21-72) U/L Creatine Kinase (55-170) U/L HDL Cholesterol 29 L (40-60) mg/dL 09/07/18 09/07/18 Range/Units 08:10 08:10 APTT 55.2 H (22.0-30.0) sec Glucose 111 H (74-99) mg/dL POC Glucose (mg/dL) (75-99) mg/dL ALT 90 H (21-72) U/L Creatine Kinase (55-170) U/L HDL Cholesterol (40-60) mg/dL Thrombosis Risk Factor Assmnt - Choose All That Apply Any of the Below Risk Factors Present?: Yes Each Factor Represents 1 point: Age 41-60 years, Obesity (BMI >25) Other Risk Factors: Yes Each Risk Factor Represents 3 Points: Family history of DVT/PE Other congenital or acquired thrombophilia - If yes, enter type in comment: No Thrombosis Risk Factor Assessment Total Risk Factor Score: 5 Thrombosis Risk Factor Assessment Level: High Risk Assessment and Plan Assessment: 1. Chest pain with left arm tingling: Acute coronary syndrome ruled out. Troponins are negative 3 sets. Patient underwent stress test today which was negative. Echocardiogram shows an EF of 60-65% with moderate left hypertrophy. Check chest x-ray 2. GERD and acid reflux symptoms with previous EGD in March 2018 showing gastritis, duodenitis and biopsy results showing esophagitis. Will add Protonix 40 mg daily 3. Elevated ALT 90: Patient did have abdominal ultrasound in April 2014 showing hepatic steatosis no evidence of cholecystitis. Hold zetia 4. History of coronary disease with previous cardiac stents and myocardial infarction 5. History of diabetes mellitus type 2: Add sliding scale coverage. Hold metformin during hospitalization 6. Hyperlipidemia 7. Essential hypertension GI prophylaxis Protonix and DVT prophylaxis heparin Time with Patient: Greater than 30 (Greater than 50% of the total time spent in counseling and coordination of care.I performed an examination of the patient and discussed their management with the physician Wad Compressor Operator Adjuster. I have reviewed the Physician Wad Compressor Operator Adjuster's notes and agree with the documented findings and plan of care)
[2018-09-07] MEDS ORDERED: ISOSORBIDE MONONITRATE ER 60 MG TAB.ER.24H PO SCH (11:45)
--- NOTE | 2018-09-07 11:55 | XR ---
EXAMINATION TYPE: XR chest 2V DATE OF EXAM: 09/07/2018 COMPARISON: 06/06/2016 HISTORY: Chest pain and left arm numbness TECHNIQUE: Frontal and lateral views of the chest are obtained. FINDINGS: There is no focal air space opacity, pleural effusion, or pneumothorax seen. The cardiac silhouette size is upper limits of normal in size. The osseous structures are intact. Mild multilev el degenerative changes of the spine are seen. IMPRESSION: No acute cardiopulmonary process.
[2018-09-07 12:06] LABS: Glucose,Whole Blood 111 mg/dL (75-99)
[2018-09-07] MEDS: INSULIN ASPART (NovoLOG) 100 UNIT/ML VIAL SQ SCH ×3 (12:31→20:56)
[2018-09-07] MEDS: PANTOPRAZOLE 40 MG TABLET PO SCH (12:40)
[2018-09-07] MEDS: METOPROLOL TARTRATE 25 MG TAB PO SCH ×2 (12:41→20:32)
[2018-09-07] MEDS ORDERED: ISOSORBIDE MONONITRATE ER 60 MG TAB.ER.24H PO STA (13:45)
--- NOTE | 2018-09-07 14:29 | P.PN ---
Progress Note - Text Pt continues to have pain in the left arm and left shoulder. No chest pain. Stress test was negative for reversible ischemia. Echo was reviewed. Discussed findings with patient and his . Will increase imdur to 60 mg BID and continue to observe overnight.
[2018-09-07 16:38] LABS: Glucose,Whole Blood 90 mg/dL (75-99)
[2018-09-07] MEDS: SODIUM CHLORIDE 0.9% 1,000 ML IV SCH (17:29)
[2018-09-07] MEDS: ISOSORBIDE MONONITRATE ER 60 MG TAB.ER.24H PO SCH (20:32)
[2018-09-07 20:44] LABS: Glucose,Whole Blood 159 mg/dL (75-99)
[2018-09-08 06:49] LABS: Glucose,Whole Blood 128 mg/dL (75-99)
[2018-09-08 07:46] VITALS: BP 109/62; PULSE 69; RESP 16; TEMP 97.7
[2018-09-08] MEDS ORDERED: ATORVASTATIN 40 MG TAB PO SCH (09:00)
[2018-09-08] MEDS ORDERED: CLOPIDOGREL 75 MG TAB PO SCH (09:00)
[2018-09-08] MEDS ORDERED: LISINOPRIL 10 MG TAB PO SCH (09:00)
[2018-09-08] MEDS ORDERED: ASPIRIN 81 MG PO SCH (09:00)
[2018-09-08] MEDS ORDERED: ISOSORBIDE MONONITRATE ER 60 MG TAB.ER.24H PO SCH (09:00)
--- NOTE | 2018-09-08 09:00 | PN ---
PROGRESS NOTE Diego is a 42-year-old gentleman with history of known coronary artery disease, who is admitted to hospital with numbness involving left arm. He underwent a stress test where he walked for 10 minutes on Missael protocol without chest pain, left arm pain, ischemic EKG changes. Nuclear scan was normal. He continues to have left arm discomfort, which seems musculoskeletal. It gets worse when he is lying down and standing and in fact it improves as he walks around. He is currently on nitrates 60 mg daily. I ambulated him and he is doing fine. On exam, vital signs are stable. There is no jugular venous distention. Chest exam reveals good air entry bilaterally. Heart exam reveals first and second heart sounds. No gallop. Examination of extremities did not reveal any edema. Peripheral pulses are felt. ASSESSMENT: Left arm discomfort, atypical, probably noncardiac. Stress test is negative. I increased the dose of Imdur to 60 mg b.i.d. for possible vasospasm. We should be able to discharge him home today and arrange outpatient followup with Dr. Hickey, his primary director of student affairs. MMODL / IJN: [id number] /
[2018-09-08] MEDS: INSULIN ASPART (NovoLOG) 100 UNIT/ML VIAL SQ SCH (09:42)
[2018-09-08] MEDS: METOPROLOL TARTRATE 25 MG TAB PO SCH (09:59)
[2018-09-08] MEDS: PANTOPRAZOLE 40 MG TABLET PO SCH (09:59)
[2018-09-08] MEDS: ISOSORBIDE MONONITRATE ER 60 MG TAB.ER.24H PO SCH (10:00)
--- NOTE | 2018-09-08 10:39 | P.DS ---
Providers Date of admission: 09/06/18 17:24 Expected date of discharge: 09/08/18 Attending physician: Crys House Consults: 09/06/18 17:24 Consult Physician Urgent Consulting Provider: Alexis Hickey Consult Reason/Comments: cp Do you want consulting provider notified?: Yes Primary care physician: Crys Harsh [place] [facility] Course: Discharge diagnosis 1. Chest pain with left arm tingling and numbness: Acute coronary syndrome ruled out. Troponins are negative 3 sets. Patient underwent stress test today which was negative. Echocardiogram shows an EF of 60-65% with moderate left hypertrophy. Chest x-ray negative. No cardiac arrhythmias noted on telemetry. Patient's symptoms are likely musculoskeletal possibly related to neck etiology. Further workup with a possible MRI of the neck will be completed outpatient. 2. GERD and acid reflux symptoms with previous EGD in March 2018 showing gastritis, duodenitis and biopsy results showing esophagitis. Will add Protonix 40 mg daily 3. Elevated ALT 90: Patient did have abdominal ultrasound in April 2014 showing hepatic steatosis no evidence of cholecystitis. Patient's ALT is chronically elevated. Rectal and repeating labs in the office outpatient in 3 days. At this time we'll continue with his Lipitor and Zetia. Patient educated to avoid any alcohol use 4. History of coronary disease with previous cardiac stents and myocardial infarction 5. History of diabetes mellitus type 2: Continue metformin 6. Hyperlipidemia 7. Essential hypertension Hospital course This is a 42-year-old male with a known history of coronary artery disease with previous cardiac stents, myocardial infarction, gerd, diabetes mellitus, hyperlipidemia and hypertension. Patient presents to the emergency room with c omplaints of chest discomfort in the epigastric area with tingling down the left arm. Patient does describe the chest discomfort as a burning sensation. Had similar symptoms during his previous heart attack. Patient was started on IV heparin in the ER. His last heart catheterization was in 2017 revealing a patent stent in the ramus, patent stent in the mid LAD with evidence of 10-20% plaque surrounding the stent. Patient's troponins were negative 3 sets. D- dimer was of normal range. EKG normal sinus rhythm with a bundle branch block. Patient reports that he stopped taking his antiacid medication about a month ago. He has had EGD in March 2018 with gastritis and duodenitis and esophagitis with a small hiatal hernia. Lipase was normal. ALT elevated at 90. Patient denies any nausea or vomiting, bowel movement changes or urinary symptoms. Denies any fever chills or sweats. Denies any new injury to the neck or left shoulder. 09/08/2018 patient has been cleared by cardiology for discharge. They increased the Imdur to 60 mg twice a day for possible vasospasms. Patient denies any chest pain at this time. Added Protonix yesterday for his heartburn-like symptoms and that seemed to had resolved those symptoms. He is educated to continue with the Protonix daily for now and then to use as needed. Patient does have an underlying history of acid reflux as well as gastritis. Patient still having symptoms of left arm numbness and tingling. Also some numbness in the left side of his face. The symptoms have been constant for the last 3 days. X-ray of the cervical spine from 2014 shows asymmetric degenerative changes at C5 to C6. Consider MRI based on patient's radiculopathy type symptoms. Reviewed these results again and will likely do further workup with an MRI of the cervical spine outpatient. Patient's symptoms are likely musculoskeletal. Patient had denied any slurred speech facial droop any difficulty with ambulating or eating or drinking. Patient is medically stable for discharge. We'll have him follow up with Dr. House within the next 3-4 days. Repeat LFTs at that time. Patient also follow-up with cardiology in 1 week I performed an examination of the patient and discussed their management with the physician Risk Control Manager. I have reviewed the Physician Risk Control Manager's notes and agree with the documented findings and plan of care Patient Condition at Discharge: Stable Plan - Discharge Summary Discharge Rx Participant: No New Discharge Prescriptions: New Isosorbide Mononitrate ER [Imdur] 60 mg PO BID #60 tab.er.24h Pantoprazole [Protonix] 40 mg PO AC-BRKFST #30 tablet. Continue Lisinopril [Zestril] 10 mg PO DAILY Aspirin EC [Ecotrin Low Dose] 81 mg PO DAILY #90 tablet. Metoprolol Tartrate [Lopressor] 25 mg PO BID #120 tab metFORMIN HCL [Glucophage] 500 mg PO DAILY Clopidogrel [Plavix] 75 mg PO DAILY Atorvastatin [Lipitor] 40 mg PO DAILY Nitroglycerin Sl Tabs [Nitrostat] 0.4 mg SUBLINGUAL Q5M PRN #0 tab PRN Reason: Chest Pain Ezetimibe [Zetia] 10 mg PO DAILY Discontinued Isosorbide Mononitrate ER [Imdur] 60 mg PO DAILY Discharge Medication List Lisinopril [Zestril] 10 mg PO DAILY 12/23/14 [History] Aspirin EC [Ecotrin Low Dose] 81 mg PO DAILY #90 tablet. 12/25/14 [Rx] Metoprolol Tartrate [Lopressor] 25 mg PO BID #120 tab 12/25/14 [Rx] Atorvastatin [Lipitor] 40 mg PO DAILY 02/18/16 [History] Clopidogrel [Plavix] 75 mg PO DAILY 02/18/16 [History] metFORMIN HCL [Glucophage] 500 mg PO DAILY 02/18/16 [History] Nitroglycerin Sl Tabs [Nitrostat] 0.4 mg SUBLINGUAL Q5M PRN #0 tab 06/08/16 [Rx] Ezetimibe [Zetia] 10 mg PO DAILY 09/06/18 [History] Isosorbide Mononitrate ER [Imdur] 60 mg PO BID #60 tab.er.24h 09/08/18 [Rx] Pantoprazole [Protonix] 40 mg PO AC-BRKFST #30 tablet. 09/08/18 [Rx] Follow up Appointment(s)/Referral(s): Alexis Hickey MD [Family Provider] - 09/12/18 8:15 am Crys House MD [Primary Care Provider] - 3 Days Ambulatory/Diagnostic Orders: Comprehensive Metabolic Panel [LAB.AMB] Time Frame: 3 Days, Location: None Selected Activity/Diet/Wound Care/Special Instructions: Activity as tolerated Diet cardiac and diabetic Discharge Disposition: HOME SELF-CARE
[2018-09-08 10:46] LABS: ALT 72 U/L (21-72); AST 29 U/L (17-59); Albumin 4.3 g/dL (3.5-5.0); Alkaline Phosphatase 53 U/L (38-126); Anion Gap 7 mmol/L; Blood Urea Nitrogen 20 mg/dL (9-20); Calcium 9.6 mg/dL (8.4-10.2); Carbon Dioxide 29 mmol/L (22-30); Chloride 102 mmol/L (98-107); Glucose 124 mg/dL (74-99); Potassium 4.9 mmol/L (3.5-5.1); Sodium 138 mmol/L (137-145); Total Bilirubin 0.7 mg/dL (0.2-1.3); Total Protein 6.9 g/dL (6.3-8.2)
== END 2018-09-08 11:22 | disposition home or self-care (01) ==
LOC: EC 14:02 → 1SOBS 17:24
PROVIDERS: ADMIT Internal Medicine; ATTEND Internal Medicine
DX: R07.89 Other chest pain (principal); M79.602 Pain in left arm; R20.0 Anesthesia of skin; R20.2 Paresthesia of skin; K21.9 Gastro-esophageal reflux disease without esophagitis; E11.9 Type 2 diabetes mellitus without complications; E78.5 Hyperlipidemia, unspecified; I10 Essential (primary) hypertension; I25.10 Atherosclerotic heart disease of native coronary artery without angina pectoris; I08.1 Rheumatic disorders of both mitral and tricuspid valves; K76.0 Fatty (change of) liver, not elsewhere classified; I45.4 Nonspecific intraventricular block; I25.2 Old myocardial infarction; Z95.5 Presence of coronary angioplasty implant and graft; Z79.82 Long term (current) use of aspirin; Z79.899 Other long term (current) drug therapy; Z79.02 Long term (current) use of antithrombotics/antiplatelets; Z79.84 Long term (current) use of oral hypoglycemic drugs; Z83.3 Family history of diabetes mellitus
CPT/HCPCS: 96361 ×2; 96366 ×2; 96376; 96365; 99291; 36415; 93005; 93017; 93306; 85379; 83880; 80061; 80053 ×3; 82550; 83690; 83735; 84484 ×2; 85025; 85049; 85610; 85730 ×2; 71046; 78452; G0378 ×3; A9500; J1644 ×2

== ENCOUNTER 2020-03-22 12:00 | Inpatient (IN) | payer OTHER ==
[2020-03-22] MEDS ORDERED: DEXAMETHASONE SOD PHOSPHATE 10 MG/ML 1 ML VIAL IV STA (12:23)
[2020-03-22] MEDS ORDERED: ACETAMINOPHEN TAB 500 MG TAB PO STA (12:23)
[2020-03-22] MEDS ORDERED: ALBUTEROL HFA INHALER INHALATION STA (12:23)
--- NOTE | 2020-03-22 12:31 | ED ---
General Adult HPI - General Chief complaint: Shortness of Breath Stated complaint: ISAAC Time Seen by Provider: 03/22/20 12:23 Source: patient, RN notes reviewed, old records reviewed Mode of arrival: ambulatory Limitations: no limitations - History of Present Illness Initial comments: 44-year-old male diagnosed with coronavirus on March 14 presents for evaluation of worsening cough and dyspnea. Patient states he had fevers however he seemed to have improved. His symptoms have worsened including increased difficulty breathing and increased cough. He has previous history of CAD status post stenting. No history of asthma or COPD. No history of congestive heart failure. He denies nausea or vomiting. He has been on oral antibiotic and dexamethasone. - Related Data Home Medications Medication Instructions Recorded Confirmed lisinopriL [Zestril] 10 mg PO DAILY 12/23/14 09/06/18 Atorvastatin [Lipitor] 40 mg PO DAILY 02/18/16 09/06/18 Clopidogrel [Plavix] 75 mg PO DAILY 02/18/16 09/06/18 metFORMIN HCL [Glucophage] 500 mg PO DAILY 02/18/16 09/06/18 Ezetimibe [Zetia] 10 mg PO DAILY 09/06/18 09/06/18 Previous Rx's Medication Instructions Recorded Aspirin EC [Ecotrin Low Dose] 81 mg PO DAILY #90 tablet. 12/25/14 Metoprolol Tartrate [Lopressor] 25 mg PO BID #120 tab 12/25/14 Nitroglycerin Sl Tabs [Nitrostat] 0.4 mg SUBLINGUAL Q5M PRN #0 tab 06/08/16 Isosorbide Mononitrate ER [Imdur] 60 mg PO BID #60 tab.er.24h 09/08/18 Pantoprazole [Protonix] 40 mg PO AC-BRKFST #30 tablet. 09/08/18 Allergies Allergy/AdvReac Type Severity Reaction Status Date / Time No Known Allergies Allergy Verified 03/22/20 12:06 Review of Systems ROS Statement: Those systems with pertinent positive or pertinent negative responses have been documented in the HPI. ROS Other: All systems not noted in ROS Statement are negative. Past Medical History Past Medical History: Coronary Artery Disease (CAD), Chest Pain / Angina, D iabetes Mellitus, GERD/Reflux, Hyperlipidemia, Hypertension, Myocardial Infarction ([place]) Additional Past Medical History / Comment(s): Pt was recently admitted to [facility] on 12/24/14 with a STEMI and had 2 stents placed to his ramus intermedius and mid LAD. Last Myocardial Infarction Date:: 12/24/14 History of Any Multi-Drug Resistant Organisms: None Reported Past Surgical History: Heart Catheterization, Heart Catheterization With Stent Additional Past Surgical History / Comment(s): 12/24/14 PCI with stent in ramus intermedius and mid LAD. THEN 01-01-15 CAME IN WITH VAGUE CHEST PAIN SYMPTOMS HAD REPEAT CATH BUT PT STATED NO MORE STENTS STATED HE HAD SPASMS. 06/07/16 heart stent, EGD Past Anesthesia/Blood Transfusion Reactions: No Reported Reaction Additional Past Anesthesia/Blood Transfusion Reaction / Comment(s): Pt has never had general anesthesia or blood transfusion. Date of Last Stent Placement:: 06/07/16 Past Psychological History: No Psychological Hx Reported Smoking Status: Never smoker Past Alcohol Use History: None Reported Past Drug Use History: None Reported - Past Family History Father Family Medical History: Diabetes Mellitus Additional Family Medical History / Comment(s): Father is 66yrs old and healthy Mother Family Medical History: Deep Vein Thrombosis (DVT) Additional Family Medical History / Comment(s): Mother is 57yrs old and healthy. General Exam Limitations: no limitations General appearance: alert, in distress Head exam: Present: atraumatic, normocephalic Eye exam: Present: normal appearance, PERRL ENT exam: Present: normal exam Neck exam: Present: normal inspection. Absent: tenderness, meningismus Respiratory exam: Present: respiratory distress, rhonchi, decreased breath sounds Cardiovascular Exam: Present: normal rhythm, tachycardia GI/Abdominal exam: Present: soft. Absent: distended, tenderness, guarding Neurological exam: Present: alert, oriented X3, CN II-XII intact. Absent: motor sensory deficit Psychiatric exam: Present: normal affect, normal mood Skin exam: Present: warm, dry, intact. Absent: cyanosis, diaphoretic Course Vital Signs 03/22/20 12:03 Temperature 99.5 F Pulse Rate 120 H Respiratory 26 H Rate Blood Pressure 111/72 O2 Sat by Pulse 91 L Oximetry EKG Findings - EKG Comments: EKG Findings:: EKG: Sinus tachycardia, rate of 104, MS interval 158, QRS duration 90, QTC 420, no ST segment elevation T-wave inversion in lead 3 Medical Decision Making - Medical Decision Making 44-year-old male with coronavirus presenting with worsening cough and dyspnea. Patient is in moderate respiratory distress, tachypneic with rhonchi bilaterally. His oxygenation is 90% on room air. Workup was initiated including CT angiography which is negative for PE but does show bilateral pneumonia consistent with coronavirus. He has an elevated white blood cell count, he is hyponatremic, elevated blood sugar, elevated lactic acid 2.9. Elevated LDH and CRP. He started on Lovenox, as well as Decadron. Case has been discussed with Dr. House who will admit. Pulmonology placed on consult. - Lab Data Result diagrams: 03/22/20 12:52 03/22/20 12:52 Lab Results 03/22/20 03/22/20 03/22/20 Range/Units 12:52 12:52 12:52 WBC 16.4 H (3.8-10.6) k/uL RBC 5.02 (4.30-5.90) m/uL Hgb 14.7 (13.0-17.5) gm/dL Hct 43.2 (39.0-53.0) % MCV 86.2 (80.0-100.0) fL MCH 29.3 (25.0-35.0) pg MCHC 34.0 (31.0-37.0) g/dL RDW 12.3 (11.5-15.5) % Plt Count 373 (150-450) k/uL MPV 7.2 Neutrophils % 91 % Lymphocytes % 4 % Monocytes % 4 % Eosinophils % 0 % Basophils % 0 % Neutrophils # 14.9 H (1.3-7.7) k/uL Lymphocytes # 0.6 L (1.0-4.8) k/uL Monocytes # 0.7 (0-1.0) k/uL Eosinophils # 0.0 (0-0.7) k/uL Basophils # 0.0 (0-0.2) k/uL PT 10.6 (9.0-12.0) sec INR 1.0 (<1.2) APTT 24.2 (22.0-30.0) sec D-Dimer 0.44 (<0.60) mg/L FEU Sodium 128 L (137-145) mmol/L Potassium 5.0 (3.5-5.1) mmol/L Chloride 97 L (98-107) mmol/L Carbon Dioxide 22 (22-30) mmol/L Anion Gap 9 mmol/L BUN 27 H (9-20) mg/dL Creatinine 0.97 (0.66-1.25) mg/dL Est GFR (CKD-EPI)AfAm >90 (>60 ml/min/1.73 sqM) Est GFR (CKD-EPI)NonAf >90 (>60 ml/min/1.73 sqM) Glucose 346 H (74-99) mg/dL Plasma Lactic Acid Marc (0.7-2.0) mmol/L Calcium 9.1 (8.4-10.2) mg/dL Magnesium 1.7 (1.6-2.3) mg/dL Total Bilirubin 0.7 (0.2-1.3) mg/dL AST 30 (17-59) U/L ALT 64 H (4-49) U/L Alkaline Phosphatase 48 (38-126) U/L Lactate Dehydrogenase 635 H (313-618) U/L C-Reactive Protein 66.7 H (<10.0) mg/L Total Protein 6.6 (6.3-8.2) g/dL Albumin 3.8 (3.5-5.0) g/dL 03/22/20 Range/Units 12:52 WBC (3.8-10.6) k/uL RBC (4.30-5.90) m/uL Hgb (13.0-17.5) gm/dL Hct (39.0-53.0) % MCV (80.0-100.0) fL MCH (25.0-35.0) pg MCHC (31.0-37.0) g/dL RDW (11.5-15.5) % Plt Count (150-450) k/uL MPV Neutrophils % % Lymphocytes % % Monocytes % % Eosinophils % % Basophils % % Neutrophils # (1.3-7.7) k/uL Lymphocytes # (1.0-4.8) k/uL Monocytes # (0-1.0) k/uL Eosinophils # (0-0.7) k/uL Basophils # (0-0.2) k/uL PT (9.0-12.0) sec INR (<1.2) APTT (22.0-30.0) sec D-Dimer (<0.60) mg/L FEU Sodium (137-145) mmol/L Potassium (3.5-5.1) mmol/L Chloride (98-107) mmol/L Carbon Dioxide (22-30) mmol/L Anion Gap mmol/L BUN (9-20) mg/dL Creatinine (0.66-1.25) mg/dL Est GFR (CKD-EPI)AfAm (>60 ml/min/1.73 sqM) Est GFR (CKD-EPI)NonAf (>60 ml/min/1.73 sqM) Glucose (74-99) mg/dL Plasma Lactic Acid Marc 2.9 H* (0.7-2.0) mmol/L Calcium (8.4-10.2) mg/dL Magnesium (1.6-2.3) mg/dL Total Bilirubin (0.2-1.3) mg/dL AST (17-59) U/L ALT (4-49) U/L Alkaline Phosphatase (38-126) U/L Lactate Dehydrogenase (313-618) U/L C-Reactive Protein (<10.0) mg/L Total Protein (6.3-8.2) g/dL Albumin (3.5-5.0) g/dL Critical Care Time Critical Care Time: Yes Total Critical Care Time: 35 Disposition Clinical Impression: COVID-19 Disposition: ADMITTED IP TO THIS [facility] Condition: Stable Is patient prescribed a controlled substance at d/c from ED?: No Referrals: Crys House MD [Primary Care Provider] - 1-2 days Decision to Admit Reason: Admit from EC Decision Date: 03/22/20 Decision Time: 14:36
[2020-03-22 13:33] LABS: Basophils % (A) 0 %; Eosinophils % (A) 0 %; HCT 43.2 % (39.0-53.0); HGB 14.7 gm/dL (13.0-17.5); Lymphocytes # (A) 0.6 k/uL (1.0-4.8); Lymphocytes % (A) 4 %; MCH 29.3 pg (25.0-35.0); MCV 86.2 fL (80.0-100.0); Mean Platelet Volume 7.2; Monocytes # (A) 0.7 k/uL (0-1.0); Monocytes % (A) 4 %; Neutrophils # (A) 14.9 k/uL (1.3-7.7); Neutrophils % (A) 91 %; Platelet Count 373 k/uL (150-450); RBC 5.02 m/uL (4.30-5.90); RDW 12.3 % (11.5-15.5); WBC 16.4 k/uL (3.8-10.6)
[2020-03-22 13:36] LABS: ALT 64 U/L (4-49); AST 30 U/L (17-59); African American GFR (CKD) >90 (>60 ml/min/1.73 sqM); Albumin 3.8 g/dL (3.5-5.0); Alkaline Phosphatase 48 U/L (38-126); Anion Gap 9 mmol/L; Blood Urea Nitrogen 27 mg/dL (9-20); C Reactive Protein 66.7 mg/L (<10.0); Calcium 9.1 mg/dL (8.4-10.2); Carbon Dioxide 22 mmol/L (22-30); Chloride 97 mmol/L (98-107); Glucose 346 mg/dL (74-99); LDH 635 U/L (313-618); Magnesium 1.7 mg/dL (1.6-2.3); Non-African American GFR(CKD) >90 (>60 ml/min/1.73 sqM); Sodium 128 mmol/L (137-145); Total Bilirubin 0.7 mg/dL (0.2-1.3); Total Protein 6.6 g/dL (6.3-8.2)
[2020-03-22 13:37] LABS: D-Dimer 0.44 mg/L FEU (<0.60); Partial Thromboplastin Time 24.2 sec (22.0-30.0); Prothrombin Time 10.6 sec (9.0-12.0)
[2020-03-22] MEDS ORDERED: SODIUM CHLORIDE 0.9% 500 ML 500 ML IV ONE (14:10)
[2020-03-22] MEDS ORDERED: ENOXAPARIN 40 MG/0.4 ML SYRINGE SQ STA (14:27)
--- NOTE | 2020-03-22 14:28 | CT ---
EXAMINATION TYPE: CT angio chest DATE OF EXAM: 03/22/2020 COMPARISON: None HISTORY: PE, positive Covid CT DLP: 494.4 mGycm Automated exposure control for dose reduction was used. CONTRAST: Performed without and with IV Contrast, patient injected with 100 mL of Isovue 370. There are 3-D post processed images. There is patchy bilateral peripheral pulmonary interstitial and airspace infiltrates. There is no ple ural effusion. Heart size is normal. There is no pericardial effusion. There is no mediastinal adenopathy. There are no hilar masses. Thoracic aorta is intact. There is no aneurysm or dissection. The ascending aorta measures 3.9 cm. There is no evidence of filling defect in the pulmonary arteries. Bony thorax is intact. IMPRESSION: No evidence of pulmonary embolism. Bilateral patchy peripheral moderate pneumonia.
[2020-03-22] MEDS ORDERED: ACETAMINOPHEN TAB 325 MG TAB PO PRN (14:31)
[2020-03-22] MEDS ORDERED: NALOXONE 0.4 MG/ML 1 ML VIAL IV PRN (14:31)
[2020-03-22] MEDS: SODIUM CHLORIDE 0.9% 1,000 ML IV SCH (15:08)
[2020-03-22] MEDS: ALBUTEROL HFA INHALER INHALATION PRN (20:04)
[2020-03-22 23:53] LABS: Ferritin 784.7 ng/mL (22.0-322.0)
[2020-03-23] MEDS ORDERED: dexAMETHasone 2 MG TAB PO SCH (09:00)
[2020-03-23] MEDS: ALBUTEROL HFA INHALER INHALATION PRN ×2 (12:13→15:58)
[2020-03-23] MEDS: methylPREDNISolone SOD SUCCI 125 MG/2 ML VIAL IV SCH ×2 (13:15→18:22)
--- NOTE | 2020-03-23 13:39 | P.CNPUL ---
History of Present Illness Consult date: 03/23/20 Requesting physician: Crys House Reason for consult: dyspnea, abnormal CXR/CT Chief complaint: Shortness of breath History of present illness: This is a very pleasant 44-year-old gentleman who follows with Dr. House as his primary care provider. He has a history of coronary artery disease with previous STEMI and stent placement 2, diabetes mellitus, hypertension, hyperlipidemia. He had developed symptoms of shortness of breath almost 2 weeks ago now. He did test positive for CoVID 19. He was being treated with Decadron and antibiotics in the outpatient setting. Yesterday he developed increasing shortness of breath. He was having difficulty in taking a deep breath and presented here to the emergency room for the same. CT angiogram ruled out pulmonary embolism there was however bilateral patchy peripheral moderate pneumonia noted. He is seen today in consultation on the regular medical floor. He is currently awake and alert in no acute distress. He is maintaining O2 saturations in the low 90s on 4 L/m per nasal cannula. He's been afebrile. White count 16.4. Hemoglobin 14.7. Lymphocytes 0.6. D-dimer 0.44. Sodium 128. Potassium 5.0. Creatinine 0.97. Ferritin 787. LDH 635. C-reactive protein 66.7. Pro-calcitonin 0.07. He was initiated on Lovenox, dexamethasone, vitamin C, vitamin D, zinc. Review of Systems REVIEW OF SYSTEMS: CONSTITUTIONAL: Denies any recent significant weight loss or weight gain. EYES: Denies change in vision. EARS, NOSE, MOUTH, THROAT: Denies headaches, denies sore throat. CARDIOVASCULAR: Denies chest pain, palpitations or syncopal episodes. RESPIRATORY: Positive for shortness of breath, cough, congestion no hemoptysis. GASTROINTESTINAL: Denies change in appetite, denies abdominal pain GENITOURINARY: Denies hematuria, denies infections. MUSKULOSKELETAL: Denies pain, denies swelling. INTEGUMENTARY: Denies rash, denies eczema. NEUROLOGICAL: Denies recent memory loss, no recent seizure activity. PSYCHIATRIC: Denies anxiety, denies depression. HEMATOLOGIC/LYMPHATIC: Denies anemia, denies enlarged lymph nodes. Past Medical History Past Medical History: Coronary Artery Disease (CAD), Chest Pain / Angina, Diabetes Mellitus, GERD/Reflux, Hyperlipidemia, Hypertension, Myocardial Infarction ([place]) Additional Past Medical History / Comment(s): Pt was recently admitted to [facility] on 12/24/14 with a STEMI and had 2 stents placed to his ramus intermedius and mid LAD. Last Myocardial Infarction Date:: 2016 History of Any Multi-Drug Resistant Organisms: None Reported Past Surgical History: Heart Catheterization, Heart Catheterization With Stent Additional Past Surgical History / Comment(s): 12/24/14 PCI with stent in ramus intermedius and mid LAD. THEN 01-01-15 CAME IN WITH VAGUE CHEST PAIN SYMPTOMS HAD REPEAT CATH BUT PT STATED NO MORE STENTS STATED HE HAD SPASMS. 06/07/16 heart stent, EGD Past Anesthesia/Blood Transfusion Reactions: No Reported Reaction Additional Past Anesthesia/Blood Transfusion Reaction / Comment(s): Pt has never had general anesthesia or blood transfusion. Date of Last Stent Placement:: 06/07/16 Past Psychological History: No Psychological Hx Reported Additional Psychological History / Comment(s): Pt resides with his spouse and 4 children. He is independent, WORKS AT [employer] DENIES ANY SERVICE. Smoking Status: Never smoker Past Alcohol Use History: None Reported Past Drug Use History: None Reported - Past Family History Father Family Medical History: Diabetes Mellitus Additional Family Medical History / Comment(s): Father is 66yrs old and healthy Mother Family Medical History: Deep Vein Thrombosis (DVT) Additional Family Medical History / Comment(s): Mother is 57yrs old and healthy. Medications and Allergies Home Medications Medication Instructions Recorded Confirmed Type lisinopriL [Zestril] 10 mg PO DAILY 12/23/14 03/22/20 History Aspirin EC [Ecotrin Low Dose] 81 mg PO DAILY #90 tablet. 12/25/14 03/22/20 Rx metFORMIN HCL [Glucophage] 500 mg PO BID 02/18/16 03/22/20 History Ezetimibe [Zetia] 10 mg PO DAILY 09/06/18 03/22/20 History Atorvastatin [Lipitor] 40 mg PO DAILY 03/22/20 03/22/20 History Isosorbide Mononitrate ER [Imdur] 30 mg PO DAILY 03/22/20 03/22/20 History Metoprolol Succinate [Toprol XL] 50 mg PO DAILY 03/22/20 03/22/20 History Allergies Allergy/AdvReac Type Severity Reaction Status Date / Time No Known Allergies Allergy Verified 03/22/20 14:58 Physical Exam Vitals: Vital Signs Temp Pulse Pulse Resp BP BP BP 03/23/20 10:31 97.3 F L 103 H 16 111/72 03/23/20 08:00 103 H 16 03/23/20 05:00 98.2 F 72 16 118/76 03/22/20 23:08 97.3 F L 69 16 110/67 03/22/20 21:04 97.8 F 70 20 114/75 03/22/20 20:05 03/22/20 20:00 16 03/22/20 17:22 98.7 F 71 22 96/63 03/22/20 15:01 100.2 F H 86 20 107/70 Pulse Ox 03/23/20 10:31 93 L 03/23/20 08:00 03/23/20 05:00 94 L 03/22/20 23:08 92 L 03/22/20 21:04 96 03/22/20 20:05 92 L 03/22/20 20:00 03/22/20 17:22 94 L 03/22/20 15:01 90 L Intake and Output 03/22/20 03/23/20 03/23/20 22:59 06:59 14:59 Intake Total 360 590 Output Total 400 Balance -40 590 Intake: Oral 360 590 Output: Urine 400 Other: # Voids 1 2 Weight 99.79 kg GENERAL EXAM: Alert, pleasant 44-year-old gentleman, on 4 L nasal cannula, comfortable in no apparent distress. HEAD: Normocephalic. EYES: Normal reaction of pupils, equal size. NOSE: Clear with pink turbinates. THROAT: No erythema or exudates. NECK: No masses, no JVD. CHEST: No chest wall deformity. LUNGS: Equal air entry with bilateral rhonchi CVS: S1 and S2 normal with no audible murmur, regular rhythm. ABDOMEN: No hepatosplenomegaly, normal bowel sounds, no guarding or rigidity. SPINE: No scoliosis or deformity SKIN: No rashes CENTRAL NERVOUS SYSTEM: No focal deficits, tone is normal in all 4 extremities. EXTREMITIES: There is no peripheral edema. No clubbing, no cyanosis. Peripheral pulses are intact. Results - Laboratory Findings CBC and BMP: 03/22/20 12:52 03/22/20 12:52 PT/INR, D-dimer PT 10.6 sec (9.0-12.0) 03/22/20 12:52 INR 1.0 (<1.2) 03/22/20 12:52 D-Dimer 0.44 mg/L FEU (<0.60) 03/22/20 12:52 Abnormal lab findings: Abnormal Labs 03/22/20 03/22/20 03/22/20 12:52 12:52 12:52 WBC 16.4 H Neutrophils # 14.9 H Lymphocytes # 0.6 L Sodium 128 L Chloride 97 L BUN 27 H Glucose 346 H Plasma Lactic Acid Marc 2.9 H* Ferritin 784.7 H ALT 64 H Lactate Dehydrogenase 635 H C-Reactive Protein 66.7 H 03/22/20 15:46 WBC Neutrophils # Lymphocytes # Sodium Chloride BUN Glucose Plasma Lactic Acid Marc 2.1 H* Ferritin ALT Lactate Dehydrogenase C-Reactive Protein - Diagnostic Findings CT scan - chest: image reviewed Assessment and Plan Assessment: 1 Acute hypoxic respiratory failure secondary to CoVID 19 pneumonitis, outside the window for Remdesivir. 2 Elevated inflammatory markers secondary to above 3 Diabetes mellitus 4 Coronary artery disease with previous myocardial infarction and stent placement 2 5 Hyperlipidemia 6 Hypertension 7 gastroesophageal reflux disease Plan: The patient was seen and evaluated by Dr. Hyde CAT scan labs reviewed Outside the window for Remdesivir We'll order a unit of convalescent plasma Discontinue dexamethasone at IV Solu-Medrol 60 mg every 6 hours Continue vitamin C, vitamin D, zinc. Add Pepcid, melatonin, Lovenox. Repeat inflammatory markers, d-dimer in a.m. Chest x-ray in a.m. We will continue to follow and make further recommendations based on his clinical status I, the cosigning physician, performed a [facility] with bilateral scattered rhonchi. Maintaining good O2 saturations in the 90s on 4 L/m per nasal cannula. I discussed the assessment and plan of care with my nurse practitioner, Angie Arzola. I attest to the above consultation as dictated by her. Time with Patient: Greater than 30
--- NOTE | 2020-03-23 14:43 | P.HPIM ---
History of Present Illness H&P Date: 03/23/20 Diego Cornejo, is a 44-year-old male who presented to [facility] emergency room with a chief complaint of worsening shortness of breath and occasional cough, patient was seen in the office about 10 days ago at that time he was having upper respiratory symptoms and cough Covid 19 PCR nasal swab was done and was positive he was given a course of oral Decadron 4 mg twice daily to take at home, he was also told to take vitamin C vitamin D and zinc, he was instructed to come to emergency room if he starts to have shortness of breath. Patient was evaluated in the emergency room, vital examination reveals a temperature of 99.5 pulse 120 respiration 26 blood pressure 111/72 pulse ox 91% on room air, white blood count was 16.4 hemoglobin 14.7 platelet count 373, sodium 128 potassium 5.0 chloride 97 BUN 27 creatinine 0.97 glucose was 346 plasma lactic acid was 2.9 ferritin 784 a LT 64 lactate dehydrogenase 635 and C- reactive protein 66.7. CTA of the chest was negative for pulmonary embolism however it revealed evidence of bilateral patchy infiltrates patient was admitted to medical floor he was started on IV steroids and supplemental oxygen pulmonary consultation was requested. Patient has a known history of hypertension, hyperlipidemia, coronary artery disease with previous history of myocardial infarction and stent placement, and history of mlk-hazzaql-yzpeperco diabetes mellitus. Past Medical History Past Medical History: Coronary Artery Disease (CAD), Chest Pain / Angina, Diabetes Mellitus, GERD/Reflux, Hyperlipidemia, Hypertension, Myocardial Infarction (OR) Additional Past Medical History / Comment(s): Pt was recently admitted to [facility] on 12/24/14 with a STEMI and had 2 stents placed to his ramus intermedius and mid LAD. Last Myocardial Infarction Date:: 2016 History of Any Multi-Drug Resistant Organisms: None Reported Past Surgical History: Heart Catheterization, Heart Catheterization With Stent Additional Past Surgical History / Comment(s): 12/24/14 PCI with stent in ramus intermedius and mid LAD. THEN 01-01-15 CAME IN WITH VAGUE CHEST PAIN SYMPTOMS HAD REPEAT CATH BUT PT STATED NO MORE STENTS STATED HE HAD SPASMS. 06/07/16 heart stent, EGD Past Anesthesia/Blood Transfusion Reactions: No Reported Reaction Additional Past Anesthesia/Blood Transfusion Reaction / Comment(s): Pt has never had general anesthesia or blood transfusion. Date of Last Stent Placement:: 06/07/16 Past Psychological History: No Psychological Hx Reported Additional Psychological History / Comment(s): Pt resides with his spouse and 4 children. He is independent, WORKS AT A [employer] DENIES ANY SERVICE. Smoking Status: Never smoker Past Alcohol Use History: None Reported Past Drug Use History: None Reported - Past Family History Father Family Medical History: Diabetes Mellitus Additional Family Medical History / Comment(s): Father is 66yrs old and healthy Mother Family Medical History: Deep Vein Thrombosis (DVT) Additional Family Medical History / Comment(s): Mother is 57yrs old and healthy. Medications and Allergies Home Medications Medication Instructions Recorded Confirmed Type lisinopriL [Zestril] 10 mg PO DAILY 12/23/14 03/22/20 History Aspirin EC [Ecotrin Low Dose] 81 mg PO DAILY #90 tablet. 12/25/14 03/22/20 Rx metFORMIN HCL [Glucophage] 500 mg PO BID 02/18/16 03/22/20 History Ezetimibe [Zetia] 10 mg PO DAILY 09/06/18 03/22/20 History Atorvastatin [Lipitor] 40 mg PO DAILY 03/22/20 03/22/20 History Isosorbide Mononitrate ER [Imdur] 30 mg PO DAILY 03/22/20 03/22/20 History Metoprolol Succinate [Toprol XL] 50 mg PO DAILY 03/22/20 03/22/20 History Allergies Allergy/AdvReac Type Severity Reaction Status Date / Time No Known Allergies Allergy Verified 03/22/20 14:58 Physical Exam Vitals: Vital Signs Temp Pulse Pulse Resp BP BP BP 03/23/20 10:31 97.3 F L 103 H 16 111/72 03/23/20 08:00 103 H 16 03/23/20 05:00 98.2 F 72 16 118/76 03/22/20 23:08 97.3 F L 69 16 110/67 03/22/20 21:04 97.8 F 70 20 114/75 03/22/20 20:05 03/22/20 20:00 16 03/22/20 17:22 98.7 F 71 22 96/63 03/22/20 15:01 100.2 F H 86 20 107/70 Pulse Ox 03/23/20 10:31 93 L 03/23/20 08:00 03/23/20 05:00 94 L 03/22/20 23:08 92 L 03/22/20 21:04 96 03/22/20 20:05 92 L 03/22/20 20:00 03/22/20 17:22 94 L 03/22/20 15:01 90 L Intake and Output 03/22/20 03/23/20 03/23/20 22:59 06:59 14:59 Intake Total 360 590 Output Total 400 Balance -40 590 Intake: Oral 360 590 Output: Urine 400 Other: # Voids 1 2 Weight 99.79 kg In general patient is alert and oriented 3 in no apparent distress HEENT head normocephalic and atraumatic Neck is supple no JVD no goiter no lymphadenopathy Chest exam reveals a few fine crackles bilaterally no wheezing Cardiac exam reveals regular heart sounds S1 and S2 no gallops no murmurs Abdomen is soft nontender no organomegaly with normal bowel sounds Extremity exam reveals no edema no cyanosis or clubbing Neurological examination reveals no gross focal deficits Results CBC & Chem 7: 03/22/20 12:52 03/22/20 12:52 Labs: Abnormal Lab Results - Last 24 Hours (Table) 03/22/20 03/22/20 Range/Units 12:52 15:46 Plasma Lactic Acid Marc 2.1 H* (0.7-2.0) mmol/L Ferritin 784.7 H (22.0-322.0) ng/mL Thrombosis Risk Factor Assmnt - Choose All That Apply Any of the Below Risk Factors Present?: Yes Each Factor Represents 1 point: Age 41-60 years, Obesity (BMI >25) Thrombosis Risk Factor Assessment Total Risk Factor Score: 2 Thrombosis Risk Factor Assessment Level: Low Risk Assessment and Plan Plan: 1. Covid 19 pneumonia 2. Acute hypoxic respiratory failure 3. Underlying history of coronary artery disease with previous history of myocardial infarction and stent placement 4. Underlying history of hypertension 5. Underlying history of hyperlipidemia 6. Underlying history of knk-khtdomv-atgykcyan diabetes mellitus At this time patient is admitted to medical floor he was started on IV steroids and subcu Lovenox Pulmonary consultation was requested will follow closely
[2020-03-23 17:20] LABS: Glucose,Whole Blood 344 mg/dL (75-99)
[2020-03-23] MEDS: ENOXAPARIN 40 MG/0.4 ML SYRINGE SQ SCH (18:22)
[2020-03-23] MEDS: INSULIN ASPART (NovoLOG) 100 UNIT/ML VIAL SQ SCH ×2 (18:23→22:27)
[2020-03-23] MEDS: SODIUM CHLORIDE 0.9% 1,000 ML IV SCH ×3 (18:30→22:30)
[2020-03-23 20:17] LABS: Glucose,Whole Blood 364 mg/dL (75-99)
[2020-03-23] MEDS ORDERED: INSULIN ASPART (NovoLOG) 100 UNIT/ML VIAL SQ ONE (21:13)
[2020-03-23] MEDS: MELATONIN 5 MG TABLET PO SCH (22:30)
[2020-03-23] MEDS: INSULIN DETEMIR (LEVEMIR) 100 UNIT/ML SYR SQ SCH (22:30)
[2020-03-23] MEDS: FAMOTIDINE 20 MG TAB PO SCH (22:30)
[2020-03-24] MEDS: methylPREDNISolone SOD SUCCI 125 MG/2 ML VIAL IV SCH ×6 (00:28→23:39)
[2020-03-24 07:15] LABS: Glucose,Whole Blood 223 mg/dL (75-99)
--- NOTE | 2020-03-24 09:07 | XR ---
EXAMINATION TYPE: XR chest 1V portable DATE OF EXAM: 03/24/2020 CLINICAL HISTORY: Difficulty breathing covid pneumonitis progress study. TECHNIQUE: Single AP portable upright view of the chest is obtained. COMPARISON: Chest x-ray from September 07, 2018. CTA chest 2 days ago. FINDINGS: Persistent low lung volumes and/or diminished inspiration. Persistent pain multifocal bila teral opacities worsening in the left lung base on current study. No pleural effusion or pneumothorax seen bilaterally. Cardiac silhouette size is upper limits of normal. Osseous structures are intact. IMPRESSION: Low lung volumes and/or diminished inspiration with multifocal bilateral acute infiltrate s, developing consolidation or worsening findings left lung base noted from most recent CT prior
[2020-03-24] MEDS: FAMOTIDINE 20 MG TAB PO SCH ×2 (09:28→20:55)
[2020-03-24] MEDS: ZINC SULFATE 220 MG CAP PO SCH (09:28)
[2020-03-24] MEDS: CHOLECALCIFEROL 400 UNIT TAB PO SCH (09:28)
[2020-03-24] MEDS: ASCORBIC ACID 500 MG TAB PO SCH (09:28)
[2020-03-24] MEDS: ENOXAPARIN 40 MG/0.4 ML SYRINGE SQ SCH (09:28)
[2020-03-24] MEDS: INSULIN ASPART (NovoLOG) 100 UNIT/ML VIAL SQ SCH ×5 (09:29→20:55)
[2020-03-24] MEDS: ALBUTEROL HFA INHALER INHALATION PRN ×3 (12:46→20:32)
--- NOTE | 2020-03-24 14:33 | P.PN ---
Subjective Progress Note Date: 03/24/20 On today's evaluation of 03/24/2020, the patient clinically feels the same. He is using incentive spirometer. He is pulling approximately 500 which is low for him. Chest x-ray still showing smaller lung volumes and bilateral pulmonary infiltrates. The patient remains on IV Solu-Medrol. Inflammatory markers are improving. LDH is down to 217 and the CRP is down to 5. Pro-calcitonin is not elevated. IV fluids are running at the rate of 75 mL an hour. He is in the form of normal saline. The sodium level at the time of dictation was 128. Repeat electrolytes need to be done tomorrow. He is on Lovenox for DVT prophylaxis. Objective - Vital Signs Vital signs: Vital Signs Temp 97.6 F 03/24/20 11:00 Pulse 74 03/24/20 11:00 Resp 20 03/24/20 11:00 BP 129/84 03/24/20 11:00 Pulse Ox 94 L 03/24/20 11:00 Intake & Output 03/23/20 03/24/20 03/24/20 18:59 06:59 18:59 Intake Total 801 725 Balance 801 725 Intake: Intake, IV Titration 600 725 Amount Sodium Chloride 0.9% 1, 600 725 000 ml @ 75 mls/hr IV . [id number] [facility] Rx#:[id number] Blood Product 201 Ffp Pher Conval Covid19 201 Acda 4 Unit [id number] Other: Voiding Method Toilet Toilet # Voids 1 - Exam GENERAL EXAM: Alert, pleasant 44-year-old gentleman, on 2 L nasal cannula, comfortable in no apparent distress. HEAD: Normocephalic. EYES: Normal reaction of pupils, equal size. NOSE: Clear with pink turbinates. THROAT: No erythema or exudates. NECK: No masses, no JVD. CHEST: No chest wall deformity. LUNGS: Equal air entry with bilateral rhonchi CVS: S1 and S2 normal with no audible murmur, regular rhythm. ABDOMEN: No hepatosplenomegaly, normal bowel sounds, no guarding or rigidity. SPINE: No scoliosis or deformity SKIN: No rashes CENTRAL NERVOUS SYSTEM: No focal deficits, tone is normal in all 4 extremities. EXTREMITIES: There is no peripheral edema. No clubbing, no cyanosis. Peripheral pulses are intact. - Labs CBC & Chem 7: 03/22/20 12:52 12 12:52 Labs: Abnormal Lab Results - Last 24 Hours (Table) 03/23/20 03/23/20 03/24/20 Range/Units 17:18 20:16 05:59 POC Glucose (mg/dL) 344 H 364 H (75-99) mg/dL C-Reactive Protein 5.0 H (0.0-0.8) mg/dL 03/24/20 Range/Units 07:14 POC Glucose (mg/dL) 223 H (75-99) mg/dL C-Reactive Protein (0.0-0.8) mg/dL Microbiology - Last 24 Hours (Table) 03/22/20 12:52 Blood Culture - Preliminary Blood No Growth after 24 hours Assessment and Plan Plan: 1 Acute hypoxic respiratory failure secondary to CoVID 19 pneumonitis, outside the window for Remdesivir. , currently the patient on 2 L of oxygen by nasal cannula and the patient is on IV Solu-Medrol. 2 Elevated inflammatory markers secondary to above,, improving 3 Diabetes mellitus 4 Coronary artery disease with previous myocardial infarction and stent placement 2 5 Hyperlipidemia 6 Hypertension 7 gastroesophageal reflux disease Plan: Outside the window for Remdesivir Received a unit of convalescent plasma Discontinue dexamethasone at IV Solu-Medrol 60 mg every 6 hours Continue vitamin C, vitamin D, zinc. Add Pepcid, melatonin, Lovenox. Repeat inflammatory markers, d-dimer from today are all improving Chest x-ray in a.m.nellie smaller lung volumes and some chronic interstitial infiltrates bilateral We will continue to follow and make further recommendations based on his clinical status
[2020-03-24 17:10] LABS: Glucose,Whole Blood 304 mg/dL (75-99)
--- NOTE | 2020-03-24 17:30 | P.PN ---
Subjective Progress Note Date: 03/24/20 Diego Cornejo, is a 44-year-old male who presented to [facility] emergency room with a chief complaint of worsening shortness of breath and occasional cough, patient was seen in the office about 10 days ago at that time he was having upper respiratory symptoms and cough Covid 19 PCR nasal swab was done and was positive he was given a course of oral Decadron 4 mg twice daily to take at home, he was also told to take vitamin C vitamin D and zinc, he was instructed to come to emergency room if he starts to have shortness of breath. Patient was evaluated in the emergency room, vital examination reveals a temperature of 99.5 pulse 120 respiration 26 blood pressure 111/72 pulse ox 91% on room air, white blood count was 16.4 hemoglobin 14.7 platelet count 373, sodium 128 potassium 5.0 chloride 97 BUN 27 creatinine 0.97 glucose was 346 plasma lactic acid was 2.9 ferritin 784 a LT 64 lactate dehydrogenase 635 and C- reactive protein 66.7. CTA of the chest was negative for pulmonary embolism however it revealed evidence of bilateral patchy infiltrates patient was admitted to medical floor he was started on IV steroids and supplemental oxygen pulmonary consultation was requested. Patient has a known history of hypertension, hyperlipidemia, coronary artery disease with previous history of myocardial infarction and stent placement, and history of tom-gupchzx-wuzguywhh diabetes mellitus. On 03/24/2020 patient was seen and examined on the medical floor he is still complaining of cough and complaining of shortness of breath otherwise he denies any complaints there is no fever or chills no headache or dizziness no chest pain no palpitation no nausea or vomiting no abdominal pain no diarrhea no blood in the stools no burning with urination no frequency or urgency and no hematuria Objective - Vital Signs Vital signs: Vital Signs Temp 97.8 F 03/24/20 05:00 Pulse 59 L 03/24/20 05:00 Resp 16 03/24/20 05:00 BP 134/87 03/24/20 05:00 Pulse Ox 93 L 03/24/20 05:00 Intake & Output 03/23/20 03/24/20 03/24/20 18:59 06:59 18:59 Intake Total 801 725 Balance 801 725 Intake: Intake, IV Titration 600 725 Amount Sodium Chloride 0.9% 1, 600 725 000 ml @ 75 mls/hr IV . [id number] [facility] Rx#:[id number] Blood Product 201 Ffp Pher Conval Covid19 201 Acda 4 Unit [id number] Other: Voiding Method Toilet # Voids 1 - Exam In general patient is alert and oriented 3 in no apparent distress HEENT head normocephalic and atraumatic Neck is supple no JVD no goiter no lymphadenopathy Chest exam reveals a few fine crackles bilaterally no wheezing Cardiac exam reveals regular heart sounds S1 and S2 no gallops no murmurs Abdomen is soft nontender no organomegaly with normal bowel sounds Extremity exam reveals no edema no cyanosis or clubbing Neurological examination reveals no gross focal deficits - Labs CBC & Chem 7: 03/22/20 12:52 03/22/20 12:52 Labs: Abnormal Lab Results - Last 24 Hours (Table) 03/23/20 03/23/20 Range/Units 17:18 20:16 POC Glucose (mg/dL) 344 H 364 H (75-99) mg/dL Microbiology - Last 24 Hours (Table) 03/22/20 12:52 Blood Culture - Preliminary Blood No Growth after 24 hours Assessment and Plan Plan: 1. Covid 19 pneumonia 2. Acute hypoxic respiratory failure 3. Underlying history of coronary artery disease with previous history of myocardial infarction and stent placement 4. Underlying history of hypertension 5. Underlying history of hyperlipidemia 6. Underlying history of nlt-vjizkzn-kwquqtvow diabetes mellitus At this time patient is admitted to medical floor he was started on IV steroids and subcu Lovenox Pulmonary consultation was requested will follow closely
[2020-03-24 20:16] LABS: Glucose,Whole Blood 324 mg/dL (75-99)
[2020-03-24] MEDS: INSULIN DETEMIR (LEVEMIR) 100 UNIT/ML SYR SQ SCH (20:55)
[2020-03-24] MEDS: MELATONIN 5 MG TABLET PO SCH (20:55)
[2020-03-24] MEDS: SODIUM CHLORIDE 0.9% 1,000 ML IV SCH (20:59)
[2020-03-25] MEDS: methylPREDNISolone SOD SUCCI 125 MG/2 ML VIAL IV SCH ×2 (06:22→13:07)
[2020-03-25 07:36] LABS: Glucose,Whole Blood 275 mg/dL (75-99)
[2020-03-25] MEDS ORDERED: METOPROLOL SUCCINATE (ER) 50 MG TAB.ER.24H PO SCH (09:00)
[2020-03-25] MEDS: ALBUTEROL HFA INHALER INHALATION PRN ×2 (09:25→12:09)
[2020-03-25] MEDS: ASCORBIC ACID 500 MG TAB PO SCH (10:07)
[2020-03-25] MEDS: FAMOTIDINE 20 MG TAB PO SCH ×2 (10:07→21:08)
[2020-03-25] MEDS: lisinopriL 10 MG TAB PO SCH (10:07)
[2020-03-25] MEDS: ZINC SULFATE 220 MG CAP PO SCH (10:08)
[2020-03-25] MEDS: ASPIRIN 81 MG PO SCH (10:08)
[2020-03-25] MEDS: INSULIN ASPART (NovoLOG) 100 UNIT/ML VIAL SQ SCH ×4 (10:08→21:08)
[2020-03-25] MEDS: ISOSORBIDE MONONITRATE ER 30 MG TAB.ER.24H PO SCH (10:08)
[2020-03-25] MEDS: metFORMIN 500 MG TAB PO SCH ×2 (10:08→21:07)
[2020-03-25] MEDS: EZETIMIBE 10 MG TAB PO SCH (10:09)
[2020-03-25] MEDS: CHOLECALCIFEROL 400 UNIT TAB PO SCH (10:09)
[2020-03-25] MEDS: ENOXAPARIN 40 MG/0.4 ML SYRINGE SQ SCH (10:10)
[2020-03-25] MEDS: ATORVASTATIN 40 MG TAB PO SCH (10:11)
[2020-03-25 11:42] LABS: Glucose,Whole Blood 298 mg/dL (75-99)
[2020-03-25] MEDS: SODIUM CHLORIDE 0.9% 1,000 ML IV SCH (13:08)
--- NOTE | 2020-03-25 13:16 | P.PN ---
Subjective Progress Note Date: 03/25/20 On today's evaluation of 03/24/2020, the patient clinically feels the same. He is using incentive spirometer. He is pulling approximately 500 which is low for him. Chest x-ray still showing smaller lung volumes and bilateral pulmonary infiltrates. The patient remains on IV Solu-Medrol. Inflammatory markers are improving. LDH is down to 217 and the CRP is down to 5. Pro-calcitonin is not elevated. IV fluids are running at the rate of 75 mL an hour. He is in the form of normal saline. The sodium level at the time of dictation was 128. Repeat electrolytes need to be done tomorrow. He is on Lovenox for DVT prophylaxis. on 03/25/2020, the patient remains on oxygen at 2 L. He made an effort to use incentive spirometer and is pulling thousand today. He remains on IV Solu- Medrol. He is feeling is physically fine. . Still unable to truly fully expand his lungs.he has a good appetite. No chest pain. IV fluids are running at 75 mL an hour.The blood sugar is slightly elevated and this is related to systemic illness. No fever. Objective - Vital Signs Vital signs: Vital Signs Temp 97.9 F 03/25/20 11:00 Pulse 85 03/25/20 11:00 Resp 20 03/25/20 11:00 BP 127/77 03/25/20 11:00 Pulse Ox 92 L 03/25/20 11:00 Intake & Output 03/24/20 03/25/20 03/25/20 18:59 06:59 18:59 Intake Total 600 Balance 600 Intake: Intake, IV Titration 600 Amount Sodium Chloride 0.9% 1, 600 000 ml @ 75 mls/hr IV . [id number] [facility] Rx#:[id number] Other: Voiding Method Toilet Toilet Toilet - Exam GENERAL EXAM: Alert, pleasant 44-year-old gentleman, on 2 L nasal cannula, comfortable in no apparent distress. HEAD: Normocephalic. EYES: Normal reaction of pupils, equal size. NOSE: Clear with pink turbinates. THROAT: No erythema or exudates. NECK: No masses, no JVD. CHEST: No chest wall deformity. LUNGS: Equal air entry with bilateral rhonchi CVS: S1 and S2 normal with no audible murmur, regular rhythm. ABDOMEN: No hepatosplenomegaly, normal bowel sounds, no guarding or rigidity. SPINE: No scoliosis or deformity SKIN: No rashes CENTRAL NERVOUS SYSTEM: No focal deficits, tone is normal in all 4 extremities. EXTREMITIES: There is no peripheral edema. No clubbing, no cyanosis. Peripheral pulses are intact. - Labs CBC & Chem 7: 03/22/20 12:52 12 12:52 Labs: Abnormal Lab Results - Last 24 Hours (Table) 03/24/20 03/24/20 03/25/20 Range/Units 17:09 20:15 07:34 POC Glucose (mg/dL) 304 H 324 H 275 H (75-99) mg/dL 03/25/20 Range/Units 11:41 POC Glucose (mg/dL) 298 H (75-99) mg/dL Microbiology - Last 24 Hours (Table) 03/22/20 12:52 Blood Culture - Preliminary Blood No Growth after 48 hours Assessment and Plan Plan: 1 Acute hypoxic respiratory failure secondary to CoVID 19 pneumonitis, outside the window for Remdesivir. , currently the patient on 2 L of oxygen by nasal cannula and the patient is on IV Solu-Medrol.sshe is doing much better on his incentive spirometer. 2 Elevated inflammatory markers secondary to above,, improving 3 Diabetes mellitus, he has a component of steroid-induced hyperglycemia related to IV Solu-Medrol. 4 Coronary artery disease with previous myocardial infarction and stent placement 2 5 Hyperlipidemia 6 Hypertension 7 gastroesophageal reflux disease Plan: Outside the window for Remdesivir Received a unit of convalescent plasma Discontinue dexamethasone at IV Solu-Medrol 60 mg every 6 hours, this will be tapered off to oral Decadron 6 mg by mouth daily. Continue vitamin C, vitamin D, zinc. Add Pepcid, melatonin, Lovenox. Repeat inflammatory markers, d-dimer from today are all improving Chest x-ray from yesterday, smaller lung volumes and some chronic interstitial infiltrates bilateral We will continue to follow and make further recommendations based on his clinical status, possible discharge within next 24-48 hours.
[2020-03-25 16:55] LABS: Glucose,Whole Blood 302 mg/dL (75-99)
[2020-03-25] MEDS: dexAMETHasone 2 MG TAB PO SCH (17:26)
[2020-03-25 20:08] LABS: Glucose,Whole Blood 297 mg/dL (75-99)
[2020-03-25] MEDS: INSULIN DETEMIR (LEVEMIR) 100 UNIT/ML SYR SQ SCH (21:08)
[2020-03-25] MEDS: MELATONIN 5 MG TABLET PO SCH (21:08)
[2020-03-26] MEDS: SODIUM CHLORIDE 0.9% 1,000 ML IV SCH ×2 (03:49→09:46)
[2020-03-26 06:44] LABS: Basophils % (A) 0 %; Eosinophils % (A) 0 %; HCT 37.6 % (39.0-53.0); Lymphocytes # (A) 0.9 k/uL (1.0-4.8); Lymphocytes % (A) 8 %; MCH 30.4 pg (25.0-35.0); MCHC 34.7 g/dL (31.0-37.0); MCV 87.7 fL (80.0-100.0); Mean Platelet Volume 6.9; Monocytes # (A) 0.5 k/uL (0-1.0); Monocytes % (A) 4 %; Neutrophils # (A) 10.7 k/uL (1.3-7.7); Neutrophils % (A) 87 %; Platelet Count 390 k/uL (150-450); RBC 4.29 m/uL (4.30-5.90); RDW 11.7 % (11.5-15.5); WBC 12.3 k/uL (3.8-10.6)
[2020-03-26 07:34] LABS: Glucose,Whole Blood 213 mg/dL (75-99)
--- NOTE | 2020-03-26 07:47 | XR ---
EXAMINATION TYPE: XR chest 1V DATE OF EXAM: 03/26/2020 COMPARISON: Prior chest x-ray 03/24/2020 HISTORY: Covid, bilateral infiltrates TECHNIQUE: Single frontal view of the chest is obtained. FINDINGS: Lung volumes are low. No pneumothorax or pleural effusion evident. Patchy retrocardiac den sity persists. Cardiac mediastinal silhouette is stable. IMPRESSION: Correlate for pneumonia.
[2020-03-26] MEDS: ALBUTEROL HFA INHALER INHALATION PRN ×3 (09:11→16:32)
[2020-03-26] MEDS: INSULIN ASPART (NovoLOG) 100 UNIT/ML VIAL SQ SCH ×2 (09:43→13:19)
[2020-03-26] MEDS: metFORMIN 500 MG TAB PO SCH (09:44)
[2020-03-26] MEDS: ISOSORBIDE MONONITRATE ER 30 MG TAB.ER.24H PO SCH (09:44)
[2020-03-26] MEDS: ASCORBIC ACID 500 MG TAB PO SCH (09:44)
[2020-03-26] MEDS: ASPIRIN 81 MG PO SCH (09:44)
[2020-03-26] MEDS: dexAMETHasone 2 MG TAB PO SCH (09:44)
[2020-03-26] MEDS: ATORVASTATIN 40 MG TAB PO SCH (09:44)
[2020-03-26] MEDS: FAMOTIDINE 20 MG TAB PO SCH (09:44)
[2020-03-26] MEDS: ZINC SULFATE 220 MG CAP PO SCH (09:44)
[2020-03-26] MEDS: lisinopriL 10 MG TAB PO SCH (09:44)
[2020-03-26] MEDS: CHOLECALCIFEROL 400 UNIT TAB PO SCH (09:45)
[2020-03-26] MEDS: ENOXAPARIN 40 MG/0.4 ML SYRINGE SQ SCH (09:45)
[2020-03-26] MEDS: EZETIMIBE 10 MG TAB PO SCH (09:46)
[2020-03-26 11:11] LABS: Glucose,Whole Blood 277 mg/dL (75-99)
[2020-03-26 11:31] LABS: African American GFR (CKD) 119.1 (60.0-200.0); Albumin 3.4 g/dL (3.80-4.90); Albumin/Globulin Ratio 2.13 (1.60-3.17); BUN/Creat Ratio 33.33 Ratio (12.00-20.00); Calcium 8.6 mg/dL (8.7-10.3); Globulin 1.6 g/dL (1.6-3.3); Non-African American GFR(CKD) 102.8 (60.0-200.0); Potassium 5.4 mmol/L (3.5-5.5); Total Bilirubin 0.6 mg/dL (0.2-1.2)
[2020-03-26 12:24] VITALS: BP 125/78; RESP 17; TEMP 97.9
--- NOTE | 2020-03-26 12:37 | P.PN ---
Subjective Progress Note Date: 03/26/20 On today's evaluation of 03/24/2020, the patient clinically feels the same. He is using incentive spirometer. He is pulling approximately 500 which is low for him. Chest x-ray still showing smaller lung volumes and bilateral pulmonary infiltrates. The patient remains on IV Solu-Medrol. Inflammatory markers are improving. LDH is down to 217 and the CRP is down to 5. Pro-calcitonin is not elevated. IV fluids are running at the rate of 75 mL an hour. He is in the form of normal saline. The sodium level at the time of dictation was 128. Repeat electrolytes need to be done tomorrow. He is on Lovenox for DVT prophylaxis. on 03/25/2020, the patient remains on oxygen at 2 L. He made an effort to use incentive spirometer and is pulling thousand today. He remains on IV Solu- Medrol. He is feeling is physically fine. . Still unable to truly fully expand his lungs.he has a good appetite. No chest pain. IV fluids are running at 75 mL an hour.The blood sugar is slightly elevated and this is related to systemic illness. No fever. on 03/26/2020, the patient is feeling great. He still requiring oxygen. On 2 L his pulse ox above 90%. On room air is drifting down to 88%. No nausea. No vomiting. Chest x-ray still showing stable bilateral pulmonary infiltrates. He is using incentive spirometer. Objective - Vital Signs Vital signs: Vital Signs Temp 97.9 F 03/26/20 11:00 Pulse 65 03/26/20 11:00 Resp 17 03/26/20 11:00 BP 125/78 03/26/20 11:00 Pulse Ox 94 L 03/26/20 11:00 Intake & Output 03/25/20 03/26/20 03/26/20 18:59 06:59 18:59 Intake Total 1800 1500 Balance 1800 1500 Intake: Intake, IV Titration 600 900 Amount Sodium Chloride 0.9% 1, 600 900 000 ml @ 75 mls/hr IV . [id number] [facility] Rx#:[id number] Oral 1200 600 Other: Voiding Method Toilet Toilet # Voids 4 3 - Exam GENERAL EXAM: Alert, pleasant 44-year-old gentleman, on 2 L nasal cannula, comfortable in no apparent distress. HEAD: Normocephalic. EYES: Normal reaction of pupils, equal size. NOSE: Clear with pink turbinates. THROAT: No erythema or exudates. NECK: No masses, no JVD. CHEST: No chest wall deformity. LUNGS: Equal air entry with bilateral rhonchi CVS: S1 and S2 normal with no audible murmur, regular rhythm. ABDOMEN: No hepatosplenomegaly, normal bowel sounds, no guarding or rigidity. SPINE: No scoliosis or deformity SKIN: No rashes CENTRAL NERVOUS SYSTEM: No focal deficits, tone is normal in all 4 extremities. EXTREMITIES: There is no peripheral edema. No clubbing, no cyanosis. Peripheral pulses are intact. - Labs CBC & Chem 7: 03/26/20 05:24 03/26/20 05:24 Labs: Abnormal Lab Results - Last 24 Hours (Table) 03/25/20 03/25/20 03/26/20 Range/Units 16:53 20:07 05:24 WBC 12.3 H (3.8-10.6) k/uL RBC 4.29 L (4.30-5.90) m/uL Hct 37.6 L (39.0-53.0) % Neutrophils # 10.7 H (1.3-7.7) k/uL Lymphocytes # 0.9 L (1.0-4.8) k/uL Sodium (135-145) mmol/L BUN (9.0-27.0) mg/dL BUN/Creatinine Ratio (12.00-20.00) Ratio Glucose (70-110) mg/dL POC Glucose (mg/dL) 302 H 297 H (75-99) mg/dL Calcium (8.7-10.3) mg/dL ALT (10-49) U/L Total Protein (6.2-8.2) g/dL Albumin (3.80-4.90) g/dL 03/26/20 03/26/20 03/26/20 Range/Units 05:24 07:23 10:55 WBC (3.8-10.6) k/uL RBC (4.30-5.90) m/uL Hct (39.0-53.0) % Neutrophils # (1.3-7.7) k/uL Lymphocytes # (1.0-4.8) k/uL Sodium 134 L (135-145) mmol/L BUN 30.0 H (9.0-27.0) mg/dL BUN/Creatinine Ratio 33.33 H (12.00-20.00) Ratio Glucose 196 H (70-110) mg/dL POC Glucose (mg/dL) 213 H 277 H (75-99) mg/dL Calcium 8.6 L (8.7-10.3) mg/dL ALT 62 H (10-49) U/L Total Protein 5.0 L (6.2-8.2) g/dL Albumin 3.40 L (3.80-4.90) g/dL Microbiology - Last 24 Hours (Table) 03/22/20 12:52 Blood Culture - Preliminary Blood No Growth after 72 hours Assessment and Plan Plan: 1 Acute hypoxic respiratory failure secondary to CoVID 19 pneumonitis, outside the window for Remdesivir. , currently the patient on 2 L of oxygen by nasal cannula and the patient is on IV Solu-Medrol.sshe is doing much better on his incentive spirometer. 2 Elevated inflammatory markers secondary to above,, improving 3 Diabetes mellitus, he has a component of steroid-induced hyperglycemia related to IV Solu-Medrol. 4 Coronary artery disease with previous myocardial infarction and stent placement 2 5 Hyperlipidemia 6 Hypertension 7 gastroesophageal reflux disease Plan: Outside the window for Remdesivir Received a unit of convalescent plasma oral Decadron 6 mg by mouth daily. Continue vitamin C, vitamin D, zinc. Add Pepcid, melatonin, Lovenox. Repeat inflammatory markers, d-dimer from today are all improving assess the patient for home oxygen and the patient possibly can go home today. Chest x-ray from yesterday, smaller lung volumes and some chronic interstitial infiltrates bilateral
[2020-03-26 12:48] VITALS: PULSE 57
--- NOTE | 2020-03-26 14:07 | P.DS ---
Providers Date of admission: 03/22/20 14:31 Expected date of discharge: 03/26/20 Attending physician: Crys House Consults: 03/22/20 14:32 Consult Physician Routine Consulting Provider: Terrell Hyde Consult Reason/Comments: COVID PNA Do you want consulting provider notified?: Yes Primary care physician: Crys [facility] Hospital Course: Diagnoses on discharge: 1. Covid 19 pneumonia 2. Acute hypoxic respiratory failure 3. Underlying history of coronary artery disease with previous history of myocardial infarction and stent placement 4. Underlying history of hypertension 5. Underlying history of hyperlipidemia 6. Underlying history of ebv-dcxcmrb-yhvhdhdss diabetes mellitus 7. Hypoxia at the time of discharge due to Covid-19 pneumonia patient will require home oxygen 2 LPM 24 hrs daily Hospital course: Diego Cornejo, is a 44-year-old male who presented to [facility] emergency room with a chief complaint of worsening shortness of breath and occasional cough, patient was seen in the office about 10 days ago at that time he was having upper respiratory symptoms and cough Covid 19 PCR nasal swab was done and was positive he was given a course of oral Decadron 4 mg twice daily to take at home, he was also told to take vitamin C vitamin D and zinc, he was instructed to come to emergency room if he starts to have shortness of breath. Patient was evaluated in the emergency room, vital examination reveals a temperature of 99.5 pulse 120 respiration 26 blood pressure 111/72 pulse ox 91% on room air, white blood count was 16.4 hemoglobin 14.7 platelet count 373, sodium 128 potassium 5.0 chloride 97 BUN 27 creatinine 0.97 glucose was 346 plasma lactic acid was 2.9 ferritin 784 a LT 64 lactate dehydrogenase 635 and C- reactive protein 66.7. CTA of the chest was negative for pulmonary embolism however it revealed evidence of bilateral patchy infiltrates patient was admitt ed to medical floor he was started on IV steroids and supplemental oxygen pulmonary consultation was requested. Patient has a known history of hypertension, hyperlipidemia, coronary artery disease with previous history of myocardial infarction and stent placement, and history of hbx-mymhubt-qairqoxfc diabetes mellitus. On 03/24/2020 patient was seen and examined on the medical floor he is still complaining of cough and complaining of shortness of breath otherwise he denies any complaints there is no fever or chills no headache or dizziness no chest pain no palpitation no nausea or vomiting no abdominal pain no diarrhea no blood in the stools no burning with urination no frequency or urgency and no hematuria On 03/25/2020 patient was seen and examined on the medical floor he is alert and oriented 3 in no apparent distress he is still complaining of cough and worsening shortness of breath especially with any activity his pulse ox is still dropping below 88% with activity on room air otherwise he denies any complaints there is no fever or chills no headache or dizziness no chest pain no nausea or vomiting no abdominal pain no diarrhea and no urinary symptoms On 03/26/2020 patient was seen and examined on the medical floor he is alert and oriented 3 in no apparent distress he is still has cough and shortness of breath with activity he was evaluated by pulmonary today and was cleared for discharge pulse ox is still dropping below 88% on room air Will arrange for home oxygen at the time of discharge Patient Condition at Discharge: Stable Plan - Discharge Summary New Discharge Prescriptions: New Zinc Sulfate [Orazinc] 220 mg PO DAILY cap Albuterol Inhaler [Ventolin Hfa Inhaler] 2 puff INHALATION RT-QID PRN puff PRN Reason: Shortness Of Breath Or Wheezing Ascorbic Acid [Vitamin C] 1,000 mg PO DAILY tab Cholecalciferol [Vitamin D3] 400 unit PO DAILY tab Continue lisinopriL [Zestril] 10 mg PO DAILY Aspirin EC [Ecotrin Low Dose] 81 mg PO DAILY #90 tablet. metFORMIN HCL [Glucophage] 500 mg PO BID Ezetimibe [Zetia] 10 mg PO DAILY Metoprolol Succinate [Toprol XL] 50 mg PO DAILY Isosorbide Mononitrate ER [Imdur] 30 mg PO DAILY Atorvastatin [Lipitor] 40 mg PO DAILY Discharge Medication List lisinopriL [Zestril] 10 mg PO DAILY 12/23/14 [History] Aspirin EC [Ecotrin Low Dose] 81 mg PO DAILY #90 tablet. 12/25/14 [Rx] metFORMIN HCL [Glucophage] 500 mg PO BID 02/18/16 [History] Ezetimibe [Zetia] 10 mg PO DAILY 09/06/18 [History] Atorvastatin [Lipitor] 40 mg PO DAILY 03/22/20 [History] Isosorbide Mononitrate ER [Imdur] 30 mg PO DAILY 03/22/20 [History] Metoprolol Succinate [Toprol XL] 50 mg PO DAILY 03/22/20 [History] Albuterol Inhaler [Ventolin Hfa Inhaler] 2 puff INHALATION RT-QID PRN puff 03/26/20 [Rx] Ascorbic Acid [Vitamin C] 1,000 mg PO DAILY tab 03/26/20 [Rx] Cholecalciferol [Vitamin D3] 400 unit PO DAILY tab 03/26/20 [Rx] Zinc Sulfate [Orazinc] 220 mg PO DAILY cap 03/26/20 [Rx] Follow up Appointment(s)/Referral(s): Crys House MD [Primary Care Provider] - 1-2 days
--- NOTE | 2020-03-26 14:08 | P.PN ---
Subjective Progress Note Date: 03/25/20 Diego Cornejo, is a 44-year-old male who presented to [facility] emergency room with a chief complaint of worsening shortness of breath and occasional cough, patient was seen in the office about 10 days ago at that time he was having upper respiratory symptoms and cough Covid 19 PCR nasal swab was done and was positive he was given a course of oral Decadron 4 mg twice daily to take at home, he was also told to take vitamin C vitamin D and zinc, he was instructed to come to emergency room if he starts to have shortness of breath. Patient was evaluated in the emergency room, vital examination reveals a temperature of 99.5 pulse 120 respiration 26 blood pressure 111/72 pulse ox 91% on room air, white blood count was 16.4 hemoglobin 14.7 platelet count 373, sodium 128 potassium 5.0 chloride 97 BUN 27 creatinine 0.97 glucose was 346 plasma lactic acid was 2.9 ferritin 784 a LT 64 lactate dehydrogenase 635 and C- reactive protein 66.7. CTA of the chest was negative for pulmonary embolism however it revealed evidence of bilateral patchy infiltrates patient was admitted to medical floor he was started on IV steroids and supplemental oxygen pulmonary consultation was requested. Patient has a known history of hypertension, hyperlipidemia, coronary artery disease with previous history of myocardial infarction and stent placement, and history of tij-ywjfjbk-kuechmois diabetes mellitus. On 03/24/2020 patient was seen and examined on the medical floor he is still complaining of cough and complaining of shortness of breath otherwise he denies any complaints there is no fever or chills no headache or dizziness no chest pain no palpitation no nausea or vomiting no abdominal pain no diarrhea no blood in the stools no burning with urination no frequency or urgency and no hematuria On 03/25/2020 patient was seen and examined on the medical floor he is alert and oriented 3 in no apparent distress he is still complaining of cough and worsening shortness of breath especially with any activity his pulse ox is still dropping below 88% with activity on room air otherwise he denies any complaints there is no fever or chills no headache or dizziness no chest pain no nausea or vomiting no abdominal pain no diarrhea and no urinary symptoms Objective - Vital Signs Vital signs: Vital Signs Temp 97.5 F L 03/25/20 05:00 Pulse 79 03/25/20 05:00 Resp 16 03/25/20 05:00 BP 120/80 03/25/20 05:00 Pulse Ox 91 L 03/25/20 05:00 Intake & Output 03/24/20 03/25/20 03/25/20 18:59 06:59 18:59 Intake Total 600 Balance 600 Intake: Intake, IV Titration 600 Amount Sodium Chloride 0.9% 1, 600 000 ml @ 75 mls/hr IV . [id number] [facility] Rx#:[id number] Other: Voiding Method Toilet Toilet - Exam In general patient is alert and oriented 3 in no apparent distress HEENT head normocephalic and atraumatic Neck is supple no JVD no goiter no lymphadenopathy Chest exam reveals a few fine crackles bilaterally no wheezing Cardiac exam reveals regular heart sounds S1 and S2 no gallops no murmurs Abdomen is soft nontender no organomegaly with normal bowel sounds Extremity exam reveals no edema no cyanosis or clubbing Neurological examination reveals no gross focal deficits - Labs CBC & Chem 7: 03/26/20 05:24 03/26/20 05:24 Labs: Abnormal Lab Results - Last 24 Hours (Table) 03/24/20 03/24/20 03/24/20 Range/Units 05:59 17:09 20:15 POC Glucose (mg/dL) 304 H 324 H (75-99) mg/dL C-Reactive Protein 5.0 H (0.0-0.8) mg/dL 03/25/20 Range/Units 07:34 POC Glucose (mg/dL) 275 H (75-99) mg/dL C-Reactive Protein (0.0-0.8) mg/dL Microbiology - Last 24 Hours (Table) 03/22/20 12:52 Blood Culture - Preliminary Blood No Growth after 48 hours Assessment and Plan Plan: 1. Covid 19 pneumonia 2. Acute hypoxic respiratory failure 3. Underlying history of coronary artery disease with previous history of myocardial infarction and stent placement 4. Underlying history of hypertension 5. Underlying history of hyperlipidemia 6. Underlying history of ntz-hzpikey-yajscgdpk diabetes mellitus At this time patient is admitted to medical floor he was started on IV steroids and subcu Lovenox Pulmonary consultation was requested will follow closely
== END 2020-03-26 16:54 | disposition home or self-care (01) | DRG 177 ==
LOC: EC 12:00 → 6NMEDSUR 14:31
PROVIDERS: ADMIT Internal Medicine; ATTEND Internal Medicine
PROC: XW13325 Transfusion of Convalescent Plasma (Nonautologous) into Peripheral Vein, Percutaneous Approach, New Technology Group 5 (ICD-10-PCS; principal; 2020-03-22)
DX: U07.1 COVID-19 (principal); J12.89 Other viral pneumonia; J96.01 Acute respiratory failure with hypoxia; E87.1 Hypo-osmolality and hyponatremia; E11.65 Type 2 diabetes mellitus with hyperglycemia; E78.5 Hyperlipidemia, unspecified; I10 Essential (primary) hypertension; I25.10 Atherosclerotic heart disease of native coronary artery without angina pectoris; I25.2 Old myocardial infarction; K21.9 Gastro-esophageal reflux disease without esophagitis; Z79.02 Long term (current) use of antithrombotics/antiplatelets; Z79.82 Long term (current) use of aspirin; Z79.84 Long term (current) use of oral hypoglycemic drugs; Z79.899 Other long term (current) drug therapy; Z95.5 Presence of coronary angioplasty implant and graft; Z83.3 Family history of diabetes mellitus; Z82.49 Family history of ischemic heart disease and other diseases of the circulatory system
CPT/HCPCS: 36415; 71045; 71275; 80053; 82728; 83605; 83615; 83735; 84145; 85025; 85379; 85610; 85730; 86140; 86850; 86900; 86901; 87040; 93005; 94640; 96361; 96372; 96374; 99291

== ENCOUNTER 2020-05-20 07:38 | Day surgery (SDC) | payer OTHER ==
[2020-05-15 11:40] VITALS: BMI 29.9
[~2020-05-20 07:38] MED LIST changes: -LIDOCAINE 1% 20 ML VIAL (10MG/ML) FOR IV START INTRADERMA PRN
[2020-05-20 07:59] VITALS: TEMP 97.6
[2020-05-20 08:22] LABS: Glucose,Whole Blood 160 mg/dL (75-99)
[2020-05-20] MEDS ORDERED: MIDAZOLAM 2 MG/2 ML VIAL ONE (08:23)
[2020-05-20] MEDS ORDERED: fentaNYL (PF) 50 MCG/ML 2 ML AMP ONE (08:23)
[2020-05-20] MEDS ORDERED: PROPOFOL 10 MG/ML 20 ML VIAL IV ONE (08:23)
--- NOTE | 2020-05-20 08:45 | P.PCN ---
Date of Procedure: 05/20/20 Procedure(s) Performed: PREOPERATIVE DIAGNOSIS: GERD, family history of colon cancer, screening POSTOPERATIVE DIAGNOSIS: Mild gastritis, diverticulosis PROCEDURE: 1. EGD with biopsy 2. Colonoscopy ANESTHESIA: MAC SURGEON: Chaitanya Vargas M.D. SPECIMENS: Antrum ENDOSCOPIC PROCEDURE: The patient was on the endoscopy table in the left decubitus position. The Olympus gastroscope was inserted into the oropharynx and passed under direct visualization to the region of the third portion of the duodenum. From that point the scope was slowly withdrawn inspecting all surfaces carefully. There were no neoplastic inflammatory or polypoid lesions throughout the duodenum. The pylorus was widely patent. The stomach was carefully inspected. There was mild gastritis. A biopsy of the antrum took place to rule out H. pylori. Retroflexion revealed a normal hiatus. The esophagus was then carefully examined. There were no neoplastic inflammatory or polypoid lesions throughout the visualized esophagus. The patient was kept on the endoscopy table in the left decubitus position. The Olympus colonoscope was inserted into the anus and passed under direct visualization to the base of the cecum. The appendiceal orifice was visualized. From that point the scope was slowly withdrawn inspecting all surfaces carefully. There were no neoplastic inflammatory or polypoid lesions throughout the cecum, ascending, transverse, descending, sigmoid and rectum. There was mild diverticulosis left sided noted. Digital rectal examination was normal. The patient was taken to the recovery room in stable condition per anesthesia guidelines. RECOMMENDATIONS: Await biopsy results. Follow-up colonoscopy 5 years.
[2020-05-20 09:07] VITALS: BP 94/61; PULSE 69; RESP 20
== END 2020-05-20 09:23 | disposition home or self-care (01) ==
LOC: ORWHC2ENDO 07:38
PROVIDERS: ATTEND Surgery
DX: Z12.11 Encounter for screening for malignant neoplasm of colon (principal); K57.30 Diverticulosis of large intestine without perforation or abscess without bleeding; K29.50 Unspecified chronic gastritis without bleeding; K21.9 Gastro-esophageal reflux disease without esophagitis; Z80.0 Family history of malignant neoplasm of digestive organs; I25.10 Atherosclerotic heart disease of native coronary artery without angina pectoris; I10 Essential (primary) hypertension; E78.5 Hyperlipidemia, unspecified; E11.9 Type 2 diabetes mellitus without complications; Z79.84 Long term (current) use of oral hypoglycemic drugs; Z79.899 Other long term (current) drug therapy; Z95.5 Presence of coronary angioplasty implant and graft; Z83.71 Family history of colonic polyps
CPT/HCPCS: 88305; 43239; J2250; J3010; J2704; G0105; 45378

== ENCOUNTER → 2020-08-14 | Outpatient (CLI) | payer OTHER ==
[2020-08-14 23:10] LABS: African American GFR (CKD) 93.5 (60.0-200.0); Albumin 4.9 g/dL (3.80-4.90); Albumin/Globulin Ratio 2.58 (1.60-3.17); Anion Gap 10.8 mmol/L (4.00-12.00); BUN/Creat Ratio 16.36 Ratio (12.00-20.00); Calcium 9.9 mg/dL (8.7-10.3); Carbon Dioxide 27.2 mmol/L (21.6-31.8); Chol/HDL Ratio 3.36; Globulin 1.9 g/dL (1.6-3.3); LDL Cholesterol,Calculated 39.2 mg/dL (0.0-131.0); Non-African American GFR(CKD) 80.6 (60.0-200.0); Potassium 4.9 mmol/L (3.5-5.5); Total Bilirubin 0.3 mg/dL (0.3-1.2); Total Protein 6.8 g/dL (6.2-8.2); VLDL Calculation 19.8 mg/dL (5.00-40.00)
== END | disposition home or self-care (01) ==
LOC: LABWHC1 08:30
PROVIDERS: ATTEND Internal Medicine Interventional Cardiology
DX: E78.2 Mixed hyperlipidemia (principal)
CPT/HCPCS: 36415; 80053; 80061

== ENCOUNTER → 2020-12-24 | Outpatient (CLI) | payer OTHER ==
[2020-12-24 21:49] LABS: Chol/HDL Ratio 2.82; LDL Cholesterol,Calculated 48.8 mg/dL (0.0-131.0); VLDL Calculation 13.2 mg/dL (5.00-40.00)
== END | disposition home or self-care (01) ==
LOC: LABWHC1 09:19
PROVIDERS: ATTEND Internal Medicine Interventional Cardiology
DX: E78.2 Mixed hyperlipidemia (principal)
CPT/HCPCS: 36415; 80061; 84450; 84460

== ENCOUNTER 2021-10-19 09:54 | Emergency (ER) | payer OTHER ==
[2021-10-19] MEDS ORDERED: HYDROmorphone 0.5 MG/0.5 ML SYRINGE IVP STA (10:11)
[2021-10-19] MEDS ORDERED: SODIUM CHLORIDE 0.9% 2,000 ML IV STA (10:11)
[2021-10-19 11:00] LABS: Basophils % (A) 0 %; Eosinophils # (A) 0.1 k/uL (0-0.7); Eosinophils % (A) 1 %; HCT 43.9 % (39.0-53.0); HGB 14.8 gm/dL (13.0-17.5); Lymphocytes % (A) 24 %; MCH 30.3 pg (25.0-35.0); MCHC 33.7 g/dL (31.0-37.0); MCV 89.7 fL (80.0-100.0); Mean Platelet Volume 7.5; Monocytes # (A) 0.5 k/uL (0-1.0); Monocytes % (A) 6 %; Neutrophils # (A) 5.7 k/uL (1.3-7.7); Neutrophils % (A) 68 %; Platelet Count 257 k/uL (150-450); RBC 4.89 m/uL (4.30-5.90); RDW 12.8 % (11.5-15.5); WBC 8.3 k/uL (3.8-10.6)
[2021-10-19 11:12] LABS: ALT 32 U/L (4-49); African American GFR (CKD) >90 (>60 ml/min/1.73 sqM); Albumin 4.6 g/dL (3.5-5.0); Anion Gap 9 mmol/L; Blood Urea Nitrogen 18 mg/dL (9-20); Calcium 9.4 mg/dL (8.4-10.2); Carbon Dioxide 26 mmol/L (22-30); Chloride 101 mmol/L (98-107); Glucose 137 mg/dL (74-99); Lipase 60 U/L (23-300); Non-African American GFR(CKD) >90 (>60 ml/min/1.73 sqM); Sodium 136 mmol/L (137-145); Total Bilirubin 0.7 mg/dL (0.2-1.3); Total Protein 7.3 g/dL (6.3-8.2)
[2021-10-19 11:17] LABS: Potassium 4.9 mmol/L (3.5-5.1)
[2021-10-19 11:18] LABS: AST 30 U/L (17-59); Alkaline Phosphatase 50 U/L (38-126)
[2021-10-19 11:24] VITALS: BP 133/87
[2021-10-19 11:34] LABS: Appearance,Urine Clear (Clear); Bilirubin,Urine Negative (Negative); Blood,Urine Trace (Negative); Color,Urine Light Yellow; Glucose,Urine (UA) Negative (Negative); Ketones,Urine Negative (Negative); Leukocyte Esterase,Urine Negative (Negative); Mucus,Urine Rare /hpf; Nitrite,Urine Negative (Negative); Protein,Urine Negative (Negative); RBC,Urine 3 /hpf (0-5); Specific Gravity,Urine 1.017 (1.001-1.035); Urobilinogen,Urine <2.0 mg/dL (<2.0); WBC,Urine <1 /hpf (0-5)
--- NOTE | 2021-10-19 12:04 | CT ---
EXAMINATION TYPE: CT abdomen pelvis w con CT DLP: 1593.7 mGycm, Automated exposure control for dose reduction was used. DATE OF EXAM: 10/19/2021 11:42 AM COMPARISON: CT angiogram chest 03/22/2020 CLINICAL INDICATION:Male, 45 years old with history of LLQ abdominal pain; LLQ pain TECHNIQUE: Standard CT of the abdomen and pelvis following the administration of 100 cc of Isovue 3 00 IV contrast material. Coronal and sagittal reformats were performed. FINDINGS: LOWER CHEST: Coronary artery atherosclerosis ABDOMEN LIVER: Diffusely hypoattenuating parenchyma. GALLBLADDER AND BILE DUCTS: Unremarkable. PANCREAS: Unremarkable. SPLEEN: Small splenules are present. ADRENAL GLANDS: Left adrenal nodule measuring 12 mm which is indeterminate KIDNEYS AND URETERS: No evidence of hydronephrosis or renal calculus. The ureters are unremarkable. PELVIS BLADDER: Unremarkable REPRODUCTIVE: Unremarkable. ABDOMEN & PELVIS STOMACH AND BOWEL: Inflammatory changes surrounding multiple colonic diverticula involving the descen ding colon. No evidence of bowel obstruction. No organizing fluid collections. PERITONEUM: No evidence of pneumoperitoneum or free fluid. VASCULATURE: No evidence of aortic aneurysm. Mild atherosclerosis of the arterial vasculature. MUSCULOSKELETAL: No acute osseous abnormalities. Mild multilevel disc degeneration changes throughout the spine. Disc bulging at L3-L4, L4-L5 and L5-S1. LYMPH NODES: No gross evidence for lymphadenopathy. SOFT TISSUE/ABDOMINAL WALL: Unremarkable IMPRESSION: 1. Acute uncomplicated descending colon diverticulitis. 2. Multilevel lower lumbar spine disc bulges 3. Hepatic steatosis. 4. Indeterminate left adrenal nodule measuring 12 mm. Cystically likely to be a benign lipid rich adr enal adenoma the absence of risk factors. This can be confirmed with MRI adrenal mass protocol if cli nically warranted.
[2021-10-19] MEDS ORDERED: LEVOFLOXACIN 500 MG TAB PO STA (12:17)
[2021-10-19] MEDS ORDERED: metroNIDAZOLE 500 MG TAB PO STA (12:17)
--- NOTE | 2021-10-19 12:22 | ED ---
Abdominal Pain HPI - General Chief Complaint: Abdominal Pain Stated Complaint: left side stomach pain Time Seen by Provider: 10/19/21 10:06 Source: patient Mode of arrival: ambulatory Limitations: no limitations - History of Present Illness Initial Comments: Patient is a 45-year-old male who presents to the emergency department with left lower quadrant pain. Patient states the symptoms started 2 days ago. Describes it as a constant severe sharp pain. There is no radiation. He denies fever, chills, nausea, vomiting, burning with urination, and increased urinary frequency/urgency. Reports normal bowel movements, nonbloody. Last bowel movement was today. Patient denies history of diverticulitis. Denies history of abdominal surgery. Patient has family history of colon cancer which includes his uncle before he has had previous colonoscopy which he states was performed last year and was normal. - Related Data Home Medications Medication Instructions Recorded Confirmed lisinopriL [Zestril] 10 mg PO DAILY 12/23/14 10/19/21 metFORMIN HCL [Glucophage] 500 mg PO BID 02/18/16 10/19/21 Ezetimibe [Zetia] 10 mg PO DAILY 09/06/18 10/19/21 Atorvastatin [Lipitor] 40 mg PO DAILY 03/22/20 10/19/21 Isosorbide Mononitrate ER [Imdur] 30 mg PO DAILY 03/22/20 10/19/21 Metoprolol Succinate [Toprol XL] 50 mg PO DAILY 03/22/20 10/19/21 Nitroglycerin Sl Tabs [Nitrostat] 0.4 mg SUBLINGUAL Q5M PRN 10/19/21 10/19/21 Pioglitazone [Actos] 30 mg PO DAILY 10/19/21 10/19/21 Previous Rx's Medication Instructions Recorded Aspirin EC [Ecotrin Low Dose] 81 mg PO DAILY #90 tablet. 12/25/14 Amoxic-Pot Clav 875-125Mg 1 tab PO Q8HR 5 Days #15 tab 10/19/21 [Augmentin 875-125] Allergies Allergy/AdvReac Type Severity Reaction Status Date / Time No Known Allergies Allergy Verified 10/19/21 11:32 Review of Systems ROS Statement: Those systems with pertinent positive or pertinent negative responses have been documented in the HPI. ROS Other: All systems not noted in ROS Statement are negative. Past Medical History Past Medical History: Coronary Artery Disease (CAD), Chest Pain / Angina, Diabetes Mellitus, GERD/Reflux, Hyperlipidemia, Hypertension, Myocardial Infarction (RI) Additional Past Medical History / Comment(s): Pt was recently admitted to [facility] on 12/24/14 with a STEMI and had 2 stents placed to his ramus intermedius and mid LAD. Last Myocardial Infarction Date:: 2016 History of Any Multi-Drug Resistant Organisms: None Reported Past Surgical History: Heart Catheterization, Heart Catheterization With Stent Additional Past Surgical History / Comment(s): 12/24/14 PCI with stent in ramus intermedius and mid LAD. THEN 01-01-15 CAME IN WITH VAGUE CHEST PAIN SYMPTOMS HAD REPEAT CATH BUT PT STATED NO MORE STENTS STATED HE HAD SPASMS. 06/07/16 heart stent, EGD Past Anesthesia/Blood Transfusion Reactions: No Reported Reaction Additional Past Anesthesia/Blood Transfusion Reaction / Comment(s): Pt has never had general anesthesia or blood transfusion. Date of Last Stent Placement:: 06/07/16 Past Psychological History: No Psychological Hx Reported Smoking Status: Never smoker Past Alcohol Use History: None Reported Past Drug Use History: None Reported - Past Family History Father Family Medical History: Diabetes Mellitus Additional Family Medical History / Comment(s): Father is 66yrs old and healthy Mother Family Medical History: Deep Vein Thrombosis (DVT) Additional Family Medical History / Comment(s): Mother is 57yrs old and healthy. General Exam Limitations: no limitations General appearance: alert, in no apparent distress Head exam: Present: atraumatic, normocephalic, normal inspection Eye exam: Present: normal appearance, PERRL, EOMI. Absent: scleral icterus, conjunctival injection, periorbital swelling Neck exam: Present: normal inspection. Absent: tenderness, meningismus, lymphadenopathy Respiratory exam: Present: normal lung sounds bilaterally. Absent: respiratory distress, wheezes, rales, rhonchi, stridor Cardiovascular Exam: Present: regular rate, normal rhythm, normal heart sounds. Absent: systolic murmur, diastolic murmur, rubs, gallop, clicks GI/Abdominal exam: Present: soft, tenderness (LLQ), normal bowel sounds. Absent: distended, guarding, rebound, rigid Back exam: Absent: CVA tenderness (R), CVA tenderness (L) Neurological exam: Present: alert, oriented X3, CN II-XII intact Psychiatric exam: Present: normal affect, normal mood Skin exam: Present: warm, dry, intact, normal color. Absent: rash Course Vital Signs 10/19/21 10/19/21 10/19/21 10:02 11:23 12:50 Temperature 98.1 F 97.8 F Pulse Rate 78 70 87 Respiratory 18 16 18 Rate Blood Pressure 137/87 133/87 133/87 O2 Sat by Pulse 98 96 97 Oximetry Medical Decision Making - Medical Decision Making This is a 45-year-old male who presents with left lower quadrant abdominal pain. Thorough history and examination were performed. Patient is well-appearing and in no apparent distress. He is afebrile. There is moderate tenderness to pa lpation of the left lower quadrant without rigidity or guarding. The patient's presentation and physical exam there is concern for diverticulitis. I will obtain laboratory studies and CT of the abdomen and pelvis with contrast. Pain controlled with dilaudid. Patient has normal white count at 8.3. CT of the abdomen and pelvis shows uncomplicated descending colon diverticulitis. CT findings discussed with patient. This is uncomplicated diverticulitis in well- appearing patient who has normal vital signs and normal white count. Patient can be discharged with outpatient antibiotics. He will be sent home with Augmentin. First dose was provided in the emergency department. Patient to fol low up with his primary care provider in one to 2 days. Return parameters discussed. Patient verbalizes understanding and is agreeable to this plan. Dr. Ag is my attending. - Lab Data Result diagrams: 10/19/21 10:43 10/19/21 10:43 Lab Results 10/19/21 10/19/21 10/19/21 Range/Units 10:43 10:43 10:43 WBC 8.3 (3.8-10.6) k/uL RBC 4.89 (4.30-5.90) m/uL Hgb 14.8 (13.0-17.5) gm/dL Hct 43.9 (39.0-53.0) % MCV 89.7 (80.0-100.0) fL MCH 30.3 (25.0-35.0) pg MCHC 33.7 (31.0-37.0) g/dL RDW 12.8 (11.5-15.5) % Plt Count 257 (150-450) k/uL MPV 7.5 Neutrophils % 68 % Lymphocytes % 24 % Monocytes % 6 % Eosinophils % 1 % Basophils % 0 % Neutrophils # 5.7 (1.3-7.7) k/uL Lymphocytes # 2.0 (1.0-4.8) k/uL Monocytes # 0.5 (0-1.0) k/uL Eosinophils # 0.1 (0-0.7) k/uL Basophils # 0.0 (0-0.2) k/uL Sodium 136 L (137-145) mmol/L Potassium 4.9 (3.5-5.1) mmol/L Chloride 101 (98-107) mmol/L Carbon Dioxide 26 (22-30) mmol/L Anion Gap 9 mmol/L BUN 18 (9-20) mg/dL Creatinine 0.78 (0.66-1.25) mg/dL Est GFR (CKD-EPI)AfAm >90 (>60 ml/min/1.73 sqM) Est GFR (CKD-EPI)NonAf >90 (>60 ml/min/1.73 sqM) Glucose 137 H (74-99) mg/dL Calcium 9.4 (8.4-10.2) mg/dL Total Bilirubin 0.7 (0.2-1.3) mg/dL AST 30 (17-59) U/L ALT 32 (4-49) U/L Alkaline Phosphatase 50 (38-126) U/L Total Protein 7.3 (6.3-8.2) g/dL Albumin 4.6 (3.5-5.0) g/dL Lipase 60 (23-300) U/L Urine Color Light Yellow Urine Appearance Clear (Clear) Urine pH 7.0 (5.0-8.0) Ur Specific [place] 1.017 (1.001-1.035) Urine Protein Negative (Negative) Urine Glucose (UA) Negative (Negative) Urine Ketones Negative (Negative) Urine Blood Trace H (Negative) Urine Nitrite Negative (Negative) Urine Bilirubin Negative (Negative) Urine Urobilinogen <2.0 (<2.0) mg/dL Ur Leukocyte Esterase Negative (Negative) Urine RBC 3 (0-5) /hpf Urine WBC <1 (0-5) /hpf Urine Mucus Rare H (None) /hpf Disposition Clinical Impression: Diverticulitis Disposition: HOME SELF-CARE Condition: Good Instructions (If sedation given, give patient instructions): Diverticulitis (ED) Additional Instructions: Take medication as directed. It is very important to finish the antibiotics. Follow-up with primary care provider in one to 2 days. Return to the emergency department if you experience new, concerning, or worsening symptoms. Prescriptions: Amoxic-Pot Clav 875-125Mg [Augmentin 875-125] 1 tab PO Q8HR 5 Days #15 tab Is patient prescribed a controlled substance at d/c from ED?: No Referrals: Crys House MD [Primary Care Provider] - 1-2 days
[2021-10-19] MEDS ORDERED: AMOXIC-POT CLAV 875-125MG 1 EACH TAB PO STA (12:23)
[2021-10-19 12:52] VITALS: PULSE 87; RESP 18; TEMP 97.8
== END 2021-10-19 12:50 | disposition home or self-care (01) ==
LOC: EC 09:54
DX: K57.32 Diverticulitis of large intestine without perforation or abscess without bleeding (principal); E11.9 Type 2 diabetes mellitus without complications; I25.2 Old myocardial infarction; I10 Essential (primary) hypertension; E78.5 Hyperlipidemia, unspecified; I25.10 Atherosclerotic heart disease of native coronary artery without angina pectoris; Z79.899 Other long term (current) drug therapy; Z79.84 Long term (current) use of oral hypoglycemic drugs
CPT/HCPCS: 36415; 80053; 83690; 85025; 81001; 74177; 99284; 96374; 96361; J1170; Q9967

== ENCOUNTER → 2022-07-27 | Outpatient (CLI) | payer OTHER ==
[2022-07-27 15:58] LABS: ALT 51 U/L (10-49); AST 30 U/L (14-35); African American GFR (CKD) 96.4 (60.0-200.0); Albumin 4.8 g/dL (3.8-4.9); Albumin/Globulin Ratio 2.12 (1.60-3.17); Alkaline Phosphatase 56 U/L (41-126); BUN/Creat Ratio 18.49 Ratio (12.00-20.00); Blood Urea Nitrogen 19.6 mg/dL (9.0-27.0); Carbon Dioxide 29.9 mmol/L (20.0-27.5); Chloride 102 mmol/L (96-109); Chol/HDL Ratio 2.84 Ratio; Globulin 2.3 g/dL (1.6-3.3); Glucose 133 mg/dL (70-110); LDL Cholesterol,Calculated 61.4 mg/dL (0.0-131.0); Non-African American GFR(CKD) 83.2 (60.0-200.0); Potassium 5.7 mmol/L (3.5-5.5); Sodium 136 mmol/L (135-145)
== END | disposition home or self-care (01) ==
LOC: LABWHC1 08:43
PROVIDERS: ATTEND Internal Medicine Interventional Cardiology
DX: E78.2 Mixed hyperlipidemia (principal)
CPT/HCPCS: 36415; 80053; 80061

== ENCOUNTER → 2022-08-30 | Outpatient (CLI) | payer OTHER ==
[2022-08-30 16:05] LABS: African American GFR (CKD) 93.2 (60.0-200.0); Anion Gap 9.2 mmol/L (10.00-18.00); BUN/Creat Ratio 18.17 Ratio (12.00-20.00); Blood Urea Nitrogen 19.8 mg/dL (9.0-27.0); Calcium 9.9 mg/dL (8.7-10.3); Carbon Dioxide 28.4 mmol/L (20.0-27.5); Non-African American GFR(CKD) 80.4 (60.0-200.0); Potassium 5.5 mmol/L (3.5-5.5)
== END | disposition home or self-care (01) ==
LOC: LABWHC1 08:36
PROVIDERS: ATTEND Nurse Practitioner Adult Health
DX: I10 Essential (primary) hypertension (principal)
CPT/HCPCS: 36415; 80048

== ENCOUNTER → 2023-02-04 | Outpatient (CLI) | payer BC ==
[2023-02-04 16:41] LABS: ALT 40 U/L (10-49); AST 22 U/L (14-35); Chol/HDL Ratio 3.45 Ratio; LDL Cholesterol,Calculated 81.2 mg/dL (0.0-131.0); VLDL Calculation 13.98 mg/dL (5.00-40.00)
== END | disposition home or self-care (01) ==
LOC: LABWHC1 08:41
PROVIDERS: ATTEND Internal Medicine Interventional Cardiology
DX: E78.2 Mixed hyperlipidemia (principal)
CPT/HCPCS: 36415; 80061; 84450; 84460

== ENCOUNTER 2024-03-06 20:16 | Emergency (ER) | payer BC ==
[2024-03-06 21:37] LABS: Basophils % (A) 0 %; Eosinophils # (A) 0.1 k/uL (0-0.7); Eosinophils % (A) 1 %; HCT 50.3 % (39.0-53.0); HGB 16.8 gm/dL (13.0-17.5); Lymphocytes # (A) 2.3 k/uL (1.0-4.8); Lymphocytes % (A) 18 %; MCH 29.6 pg (25.0-35.0); MCHC 33.3 g/dL (31.0-37.0); MCV 88.9 fL (80.0-100.0); Mean Platelet Volume 7.1; Monocytes # (A) 0.7 k/uL (0-1.0); Monocytes % (A) 6 %; Neutrophils # (A) 9.2 k/uL (1.3-7.7); Neutrophils % (A) 74 %; Platelet Count 261 k/uL (150-450); RBC 5.66 m/uL (4.30-5.90); RDW 12.8 % (11.5-15.5); WBC 12.5 k/uL (3.8-10.6)
--- NOTE | 2024-03-06 21:38 | ED ---
GI Bleed HPI - General Chief complaint: GI Bleed Stated complaint: Blood in Stool Time Seen by Provider: 03/06/24 20:32 Source: patient, RN notes reviewed Mode of arrival: ambulatory Limitations: no limitations - History of Present Illness Initial comments: This is a 48-year-old male presenting with blood in diarrhea x 2 days. Patient endorses watery diarrhea along with blood for 2 days. Endorses associated constant, pressure like abdominal pain (5 out of 10). Patient endorses eating fresh hamburger yesterday and leftover hamburger today. Endorses family members having the same hamburger without symptoms. Patient endorses history of diverticulitis. Patient denies fever, chills, chest pain, dyspnea, nausea, vomiting, dizziness. MD complaint: blood streaked stool Onset/Timin -: days(s) Quality: other (Pressure) Consistency: constant Context: other (History of diverticulitis) Associated Symptoms: abdominal pain - Related Data Home Medications Medication Instructions Recorded Confirmed lisinopriL [Zestril] 10 mg PO DAILY 12/23/14 10/19/21 metFORMIN HCL [Glucophage] 500 mg PO BID 02/18/16 10/19/21 Ezetimibe [Zetia] 10 mg PO DAILY 09/06/18 10/19/21 Atorvastatin [Lipitor] 40 mg PO DAILY 03/22/20 10/19/21 Isosorbide Mononitrate ER [Imdur] 30 mg PO DAILY 03/22/20 10/19/21 Metoprolol Succinate [Toprol XL] 50 mg PO DAILY 03/22/20 10/19/21 Nitroglycerin Sl Tabs [Nitrostat] 0.4 mg SUBLINGUAL Q5M PRN 10/19/21 10/19/21 Pioglitazone [Actos] 30 mg PO DAILY 10/19/21 10/19/21 Previous Rx's Medication Instructions Recorded Aspirin EC [Ecotrin Low Dose] 81 mg PO DAILY #90 tablet. 12/25/14 Amoxic-Pot Clav 875-125Mg 1 tab PO Q8HR 5 Days #15 tab 10/19/21 [Augmentin 875-125] Azithromycin [Zithromax Z Pack] 1 tab PO DIRECTED #4 tab 03/07/24 Allergies Allergy/AdvReac Type Severity Reaction Status Date / Time No Known Allergies Allergy Verified 03/06/24 20:43 Review of Systems ROS Statement: Those systems with pertinent positive or pertinent negative responses have been documented in the HPI. ROS Other: All systems not noted in ROS Statement are negative. Past Medical History Past Medical History: Coronary Artery Disease (CAD), Chest Pain / Angina, Diabetes Mellitus, GERD/Reflux, Hyperlipidemia, Hypertension, Myocardial Infarction (ID) Additional Past Medical History / Comment(s): Pt was recently admitted to [facility] on 12/24/14 with a STEMI and had 2 stents placed to his ramus intermedius and mid LAD. Last Myocardial Infarction Date:: 2016 History of Any Multi-Drug Resistant Organisms: None Reported Past Surgical History: Heart Catheterization, Heart Catheterization With Stent Additional Past Surgical History / Comment(s): 12/24/14 PCI with stent in ramus intermedius and mid LAD. THEN 01-01-15 CAME IN WITH VAGUE CHEST PAIN SYMPTOMS HAD REPEAT CATH BUT PT STATED NO MORE STENTS STATED HE HAD SPASMS. 06/07/16 heart stent, EGD Past Anesthesia/Blood Transfusion Reactions: No Reported Reaction Additional Past Anesthesia/Blood Transfusion Reaction / Comment(s): Pt has never had general anesthesia or blood transfusion. Date of Last Stent Placement:: 06/07/16 Past Psychological History: No Psychological Hx Reported Smoking Status: Never smoker Past Alcohol Use History: None Reported Past Drug Use History: None Reported - Past Family History Father Family Medical History: Diabetes Mellitus Additional Family Medical History / Comment(s): Father is 66yrs old and healthy Mother Family Medical History: Deep Vein Thrombosis (DVT) Additional Family Medical History / Comment(s): Mother is 57yrs old and healthy. General Exam Limitations: no limitations General appearance: alert, in no apparent distress Head exam: Present: atraumatic, normocephalic, normal inspection Eye exam: Present: normal appearance, PERRL, EOMI. Absent: scleral icterus, conjunctival injection, periorbital swelling ENT exam: Present: normal exam, mucous membranes moist Neck exam: Present: normal inspection. Absent: tenderness, meningismus, lymphadenopathy Respiratory exam: Present: normal lung sounds bilaterally. Absent: respiratory distress, wheezes, rales, rhonchi, stridor Cardiovascular Exam: Present: regular rate, normal rhythm, normal heart sounds. Absent: systolic murmur, diastolic murmur, rubs, gallop, clicks GI/Abdominal exam: Present: soft, tenderness (Positive left lower quadrant tenderness without guarding. Negative tympanic or rebound tenderness.), diminished bowel sounds. Absent: distended, guarding, rebound, rigid Rectal exam: Present: normal inspection, normal rectal tone. Absent: hemorrhoids, tenderness Extremities exam: Present: normal inspection, full ROM, normal capillary refill, other (Bilateral posterior tibialis pulse +2). Absent: tenderness, pedal edema, joint swelling, calf tenderness Back exam: Present: normal inspection Neurological exam: Present: alert, oriented X3, CN II-XII intact Psychiatric exam: Present: normal affect, normal mood Skin exam: Present: warm, dry, intact, normal color. Absent: rash Course Vital Signs 03/06/24 03/06/24 03/06/24 20:42 22:36 23:00 Temperature 98.2 F Pulse Rate 88 73 88 Respiratory 20 16 18 Rate Blood Pressure 135/93 129/82 134/84 O2 Sat by Pulse 98 98 98 Oximetry 03/07/24 00:40 Temperature 98.3 F Pulse Rate 81 Respiratory 18 Rate Blood Pressure 132/78 O2 Sat by Pulse 99 Oximetry Medical Decision Making - Medical Decision Making Was pt. sent in by a medical professional or institution (, PA, PET CAREGIVER, urgent care, hospital, or jail...) When possible be specific @ -No Did you speak to anyone other than the patient for history (EMS, parent, family, police, friend...)? What history was obtained from this source @ -No Did you review nursing and triage notes (agree or disagree)? Why? @ -I reviewed and agree with nursing and triage notes Were old charts reviewed (outside hosp., previous admission, EMS record, old EKG, old radiological studies, urgent care reports/EKG's, jail records)? Report findings @ -No old charts were reviewed Differential Diagnosis (chest pain, altered mental status, abdominal pain women, abdominal pain men, vaginal bleeding, weakness, fever, dyspnea, syncope, headache, dizziness, GI bleed, back pain, seizure, CVA, palpatations, mental health, musculoskeletal)? @ -Differential Abdominal Pain Men: Appendicitis, cholecystitis, diverticulosis, ischemic bowel, pancreatitis, hepatitis, UTI, gastroenteritis, AAA, incarcerated hernia, bowel obstruction, constipation, inflammatory bowel, hepatitis, peptic ulcer disease, splenic infarction, perforated viscus, testicular torsion, this is not meant to be an all-inclusive list EKG interpreted by me (3pts min.). @ -Not done X-rays interpreted by me (1pt min.). @ -None done CT interpreted by me (1pt min.). @ -Abdominal CT shows transverse colon wall thickening indicating uncomplicated colitis. U/S interpreted by me (1pt. min.). @ -None done What testing was considered but not performed or refused? (CT, X-rays, U/S, labs)? Why? @ -None What meds were considered but not given or refused? Why? @ -None Did you discuss the management of the patient with other professionals (professionals i.e. DrSuresh, PA, PET CAREGIVER, lab, RT, psych nurse, nephrology social worker, nurse ldr, teacher, staff mine warfare officer, block and case maker)? Give summary @ -No Was smoking cessation discussed for >3mins.? @ -No Was critical care preformed (if so, how long)? @ -No Were there social determinants of health that impacted care today? How? (Homelessness, low income, unemployed, alcoholism, drug addiction, transportation, low edu. Level, literacy, decrease access to med. care, [facility], rehab)? @ -No Was there de-escalation of care discussed even if they declined (Discuss DNR or withdrawal of care, Hospice)? DNR status @ -No What co-morbidities impacted this encounter? (DM, HTN, Smoking, COPD, CAD, Cancer, CVA, ARF, Chemo, Hep., AIDS, mental health diagnosis, sleep apnea, morbid obesity)? @ -None Was patient admitted / discharged? Hospital course, mention meds given and route, prescriptions, significant lab abnormalities, going to OR and other pertinent info. @ -Discharge. Stool occult blood was positive but otherwise unremarkable lab work including lactic acid. Abdominal CT shows transverse colon wall thickening indicating uncomplicated colitis. Patient provided initial p.o. azithromycin dose in ER and remaining 4 day supply sent to pharmacy. Advised increase oral fluid intake and MATT diet. Advised follow-up with PCP in next 24 to 48 hours. Undiagnosed new problem with uncertain prognosis? @ -No Drug Therapy requiring intensive monitoring for toxicity (Heparin, Nitro, Insulin, Cardizem)? @ -No Were any procedures done? @ -No Diagnosis/symptom? @ -Colitis Acute, or Chronic, or Acute on Chronic? @ -Acute Uncomplicated (without systemic symptoms) or Complicated (systemic symptoms)? @ -Complicated Side effects of treatment? @ -No Exacerbation, Progression, or Severe Exacerbation? @ -No Poses a threat to life or bodily function? How? (Chest pain, USA, ID, pneumonia, PE, COPD, DKA, ARF, appy, cholecystitis, CVA, Diverticulitis, Homicidal, Suicidal, threat to staff... and all critical care pts) @ -No - Lab Data Result diagrams: 03/06/24 21:20 03/06/24 21:20 Lab Results 03/06/24 03/06/24 03/06/24 Range/Units 21:20 21:20 21:20 WBC 12.5 H (3.8-10.6) k/uL RBC 5.66 (4.30-5.90) m/uL Hgb 16.8 (13.0-17.5) gm/dL Hct 50.3 (39.0-53.0) % MCV 88.9 (80.0-100.0) fL MCH 29.6 (25.0-35.0) pg MCHC 33.3 (31.0-37.0) g/dL RDW 12.8 (11.5-15.5) % Plt Count 261 (150-450) k/uL MPV 7.1 Neutrophils % 74 % Lymphocytes % 18 % Monocytes % 6 % Eosinophils % 1 % Basophils % 0 % Neutrophils # 9.2 H (1.3-7.7) k/uL Lymphocytes # 2.3 (1.0-4.8) k/uL Monocytes # 0.7 (0-1.0) k/uL Eosinophils # 0.1 (0-0.7) k/uL Basophils # 0.0 (0-0.2) k/uL PT 11.4 (10.0-12.5) sec INR 1.1 (<1.2) APTT 26.1 (22.0-30.0) sec Sodium (137-145) mmol/L Potassium (3.5-5.1) mmol/L Chloride (98-107) mmol/L Carbon Dioxide (22-30) mmol/L Anion Gap mmol/L BUN (9-20) mg/dL Creatinine (0.66-1.25) mg/dL Est GFR (CKD-EPI)AfAm (>60 ml/min/1.73 sqM) Est GFR (CKD-EPI)NonAf (>60 ml/min/1.73 sqM) Glucose (74-99) mg/dL Plasma Lactic Acid Marc (0.7-2.0) mmol/L Calcium (8.4-10.2) mg/dL Total Bilirubin (0.2-1.3) mg/dL AST (17-59) U/L ALT (4-49) U/L Alkaline Phosphatase (38-126) U/L Total Protein (6.3-8.2) g/dL Albumin (3.5-5.0) g/dL Lipase (23-300) U/L Stool Occult Blood Positive (Negative) 03/06/24 03/06/24 Range/Units 21:20 22:24 WBC (3.8-10.6) k/uL RBC (4.30-5.90) m/uL Hgb (13.0-17.5) gm/dL Hct (39.0-53.0) % MCV (80.0-100.0) fL MCH (25.0-35.0) pg MCHC (31.0-37.0) g/dL RDW (11.5-15.5) % Plt Count (150-450) k/uL MPV Neutrophils % % Lymphocytes % % Monocytes % % Eosinophils % % Basophils % % Neutrophils # (1.3-7.7) k/uL Lymphocytes # (1.0-4.8) k/uL Monocytes # (0-1.0) k/uL Eosinophils # (0-0.7) k/uL Basophils # (0-0.2) k/uL PT (10.0-12.5) sec INR (<1.2) APTT (22.0-30.0) sec Sodium 134 L (137-145) mmol/L Potassium 4.4 (3.5-5.1) mmol/L Chloride 100 (98-107) mmol/L Carbon Dioxide 25 (22-30) mmol/L Anion Gap 9 mmol/L BUN 16 (9-20) mg/dL Creatinine 0.88 (0.66-1.25) mg/dL Est GFR (CKD-EPI)AfAm >90 (>60 ml/min/1.73 sqM) Est GFR (CKD-EPI)NonAf >90 (>60 ml/min/1.73 sqM) Glucose 115 H (74-99) mg/dL Plasma Lactic Acid Marc 0.9 (0.7-2.0) mmol/L Calcium 9.8 (8.4-10.2) mg/dL Total Bilirubin 1.1 (0.2-1.3) mg/dL AST 46 (17-59) U/L ALT 70 H (4-49) U/L Alkaline Phosphatase 66 (38-126) U/L Total Protein 7.5 (6.3-8.2) g/dL Albumin 4.8 (3.5-5.0) g/dL Lipase 70 (23-300) U/L Stool Occult Blood (Negative) Disposition Clinical Impression: Colitis Disposition: HOME SELF-CARE Condition: Good Instructions (If sedation given, give patient instructions): Colitis (ED) Prescriptions: Azithromycin [Zithromax Z Pack] 1 tab PO DIRECTED #4 tab Is patient prescribed a controlled substance at d/c from ED?: No Referrals: Marija Cabrales MD [Primary Care Provider] - 1-2 days Time of Disposition: 00:24
[2024-03-06 21:59] LABS: INR 1.1 (<1.2); Partial Thromboplastin Time 26.1 sec (22.0-30.0); Prothrombin Time 11.4 sec (10.0-12.5)
[2024-03-06 22:16] LABS: ALT 70 U/L (4-49); AST 46 U/L (17-59); African American GFR (CKD) >90 (>60 ml/min/1.73 sqM); Albumin 4.8 g/dL (3.5-5.0); Alkaline Phosphatase 66 U/L (38-126); Anion Gap 9 mmol/L; Blood Urea Nitrogen 16 mg/dL (9-20); Calcium 9.8 mg/dL (8.4-10.2); Carbon Dioxide 25 mmol/L (22-30); Chloride 100 mmol/L (98-107); Glucose 115 mg/dL (74-99); Lipase 70 U/L (23-300); Non-African American GFR(CKD) >90 (>60 ml/min/1.73 sqM); Potassium 4.4 mmol/L (3.5-5.1); Sodium 134 mmol/L (137-145); Total Bilirubin 1.1 mg/dL (0.2-1.3); Total Protein 7.5 g/dL (6.3-8.2)
--- NOTE | 2024-03-06 23:18 | CT ---
EXAMINATION TYPE: CT abdomen pelvis w con DATE OF EXAM: 03/06/2024 COMPARISON: Prior CT October 19, 2021 CLINICAL INDICATION: Male, 48 years old with history of pain, GI bleed; PHH, Patient comes in for blo od in stool. Started having diarrhea last night. Bright red blood. TECHNIQUE: Performed with Oral Contrast and with IV Contrast, patient injected with 100ml mL of Isovue 370. CT DLP: 1063.[address] CTDI: 44 mGy Automated exposure control for dose reduction was used. FINDINGS: LUNG BASES: No significant abnormality is appreciated. LIVER/GB: Liver is redemonstrated diffusely low dense consistent with diffuse fatty infiltrative hepa tocellular disease. PANCREAS: No significant abnormality is seen. SPLEEN: A few tiny splenules are redemonstrated. ADRENALS: Stable slight asymmetric thickening to left adrenal gland favoring benign hyperplasia. KIDNEYS: No significant abnormality is seen. FREE AIR: No free air is visualized. RETROPERITONEAL ADENOPATHY: None visualized REPRODUCTIVE ORGANS: No significant abnormality is seen URINARY BLADDER: No significant abnormality is seen. PELVIC ADENOPATHY: None visualized. OSSEOUS STRUCTURES: Levoconvex scoliosis is redemonstrated. Posterior disc herniation L4-L5 level sa gittal image 67 redemonstrated. BOWEL: Diverticula in the left and sigmoid colon. No convincing CT evidence for acute diverticulitis . No abnormal small or large bowel dilatation. There is moderate to severe concentric wall thickening in the transverse colon on current study. Normal-appearing appendix is redemonstrated. OTHER: Mild to moderate peripheral calcified plaque of the infrarenal abdominal aorta is again seen IMPRESSION: UNCOMPLICATED ACUTE COLITIS INVOLVING THE TRANSVERSE COLON IS FELT PRESENT. DIFFERENTIAL INCLUDES INF ECTIOUS, INFLAMMATORY, AND ISCHEMIC ETIOLOGIES. CORRELATE CLINICALLY. [facility], , 03/06/2024 11:15 PM
[2024-03-06 23:59] VITALS: RESP 18
[2024-03-07] MEDS: metroNIDAZOLE-NS PMX 500 MG in SALINE 1 100ML.BAG IVPB ONE (00:25)
[2024-03-07] MEDS: AZITHROMYCIN 500 MG TAB PO STA (00:38)
[2024-03-07 00:41] VITALS: BP 132/78; PULSE 81; TEMP 98.3
== END 2024-03-07 00:41 | disposition home or self-care (01) ==
LOC: EC 20:16
DX: K52.9 Noninfective gastroenteritis and colitis, unspecified (principal); Z95.5 Presence of coronary angioplasty implant and graft
CPT/HCPCS: 36415; 80053; 83605; 83690; 85025; 85610; 85730; 82272; 74177; 99285; Q9967